=== PATIENT | female | born 1955 | race African-American/Black ===

== ENCOUNTER 2017-06-25 09:23 | Inpatient (IN) | payer MEDICARE, MEDICAID ==
[~2017-06-25 09:23] MED LIST: Propofol 200 MG/20 ML VIAL ONE
[2017-06-25 10:17] LABS: #Eosinphils 0.2 thou/uL (0.0-0.7); #Lymphocytes 1.3 thou/uL (1.20-3.40); #Monocytes 0.5 thou/uL (0.11-0.59); #Neutrophils 7.2 thou/uL (1.40-6.50); %Basophils 0.3 % (0.0-1.0); %Eosinophils 1.7 % (0.0-10.0); %Lymphocytes 14.4 % (21.0-51.0); %Monocytes 5.7 % (0.0-10.0); Hematocrit 38.4 % (36.0-47.0); Mean Platelet Volume 7.9 fL (7.4-10.4); Red Blood Cell (RBC) Count 4.81 mill/uL (4.20-5.40); White Blood Cell (WBC) Count 9.2 thou/uL (4.8-10.8)
--- NOTE | 2017-06-25 10:17 | RAD ---
CHEST 1 VIEW: HISTORY: Shortness of breath. COMPARISON: Chest 1 view 06/02/16. FINDINGS: Linear opacities are present at the right middle lobe and lingula. Heart size is enlarged. Mild pu lmonary venous congestion, worsened. No pneumothorax. Tracheostomy tube is present. IMPRESSION: 1. Linear opacities in lingula and right middle lobe may reflect atelectasis or infection. 2. Cardiomegaly with pulmonary venous congestion. 3. Likely small left effusion. 4. Followup recommended. POS: OFF
[2017-06-25 10:33] LABS: Lactic Acid - Sepsis 1.1 mmol/L (0.5-2.2)
[2017-06-25 10:49] LABS: ALT (SGPT) 11 U/L (8-55); AST (SGOT) 13 U/L (5-34); Alkaline Phosphatase 78 U/L (40-150); Anion Gap 12 mmol/L (10-20); BUN (Urea Nitrogen) 13 mg/dL (9.8-20.1); Bilirubin, Total 0.3 mg/dL (0.2-1.2); CK (CPK) 32 U/L (29-168); Calc. Creatinine Clearance 0 mL/min (70-130); Calcium 9.3 mg/dL (7.8-10.44); Carbon Dioxide 36 mmol/L (22-29); Chloride 97 mmol/L (98-107); Estimated GFR-MDRD 78; Protein, Total 7.4 g/dL (6.0-8.3); Troponin I 0.015 ng/mL (< 0.028)
[2017-06-25 11:43] LABS: Bilirubin Negative (Negative); Blood, Urine Negative (Negative); Glucose, Urine (Dipstick) Negative (Negative); Ketone, Urine Negative (Negative); Nitrite Negative (Negative); Protein, Urine (Dipstick) Negative (Neg-Trace); Urobilinogen 0.2 mg/dL (0.2-1.0)
[2017-06-25 11:45] LABS: Bacteria/HPF None Seen HPF (None Seen); RBC/HPF 0-3 HPF (0-3)
[2017-06-25 11:57] LABS: Oval Fat Bodies/HPF None Seen HPF (None Seen); Renal Epithelial None Seen HPF (0-3); Transitional Epithelial 0-3 HPF (0-3); Trichomonas/HPF None Seen HPF (None Seen)
[2017-06-25] MEDS ORDERED: Piperacillin/Tazobactam 4.5 GM VIAL ONE (12:00)
[2017-06-25] MEDS ORDERED: Ibuprofen 800 MG TAB ONE (12:00)
[2017-06-25] MEDS ORDERED: Sodium Chloride 0.9% 100 ML ONE (12:01)
--- NOTE | 2017-06-25 13:22 | HP ---
PRIMARY CARE PHYSICIAN: Dr. Jasmin Ivey. REASON FOR ADMISSION: Right lower lobe pneumonia. HISTORY OF PRESENT ILLNESS: A 61-year-old female, who has morbid obesity with obesity hypoventilati on syndrome and chronic respiratory failure, on home oxygen therapy. She also has a tracheostomy. This time, she came to emergency room for evaluation of hypoxia. Her oxygen saturation was trending 87%, and with little exertion, her oxygen saturation dropping to below 60. She was also having inc reased need of suction through the tracheostomy and she was feeling warm at home. She is not sure a bout fever. The patient was also having generalized body pain, and she was feeling more weak than u sual and that is why she decided to come to emergency room for evaluation. In the emergency room, c hest x-ray showed opacity in the lingula and right middle lobe. Her urinalysis was consistent with urinary tract infection. Culture obtained in the emergency room, and the patient was given empiric antibiotic therapy with vancomycin and Zosyn, and subsequently, she was admitted to medical floor fo r further treatment. Patient denies any chest pain or palpitations. She denies any constipation, diarrhea, melena, or he matochezia. She denies any real UTI symptoms. She denies any fall. PAST MEDICAL HISTORY: Morbid obesity; obesity hypoventilation syndrome; chronic respiratory failure , on home oxygen therapy; chronic obstructive pulmonary disease/asthma; gastroesophageal reflux dise ase; obstructive sleep apnea; tracheostomy status; chronic physical deconditioning. PAST PSYCHIATRIC HISTORY: Anxiety and depression. PAST SURGICAL HISTORY: Tracheostomy in 2015, bilateral tubal ligation, cholecystectomy, , herniorrhaphy, bilateral mastectomy, appendicectomy. ALLERGIES: Patient is allergic to INFLUENZA VIRUS VACCINE, LEVAQUIN, IODINE, SHELLFISH, NALBUPHINE, AND SULFA DRUGS. FAMILY HISTORY: Mother has history of hypertension. Father diagnosed with prostate cancer and he a lso had hypertension. One son has asthma. No family history of stroke. SOCIAL HISTORY: Patient lives at home. She has home health. No history of tobacco, alcohol, or il licit drug abuse. 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 She is with 2 children. REVIEW OF SYSTEMS: The following complete review of systems was negative, unless otherwise mentione d in the HPI or below: Constitutional: Weight loss or gain, ability to conduct usual activities. Skin: Rash, itching. Eyes: Double vision, pain. ENT/Mouth: Nose bleeding, neck stiffness, pain, tenderness. Cardiovascular: Palpitations, dyspnea on exertion, orthopnea. Respiratory: Shortnes s of breath, wheezing, cough, hemoptysis, fever or night sweats. Gastrointestinal: Poor appetite, abdominal pain, heartburn, nausea, vomiting, constipation, or diarrhea. Genitourinary: Urgency, fr equency, dysuria, nocturia. Musculoskeletal: Pain, swelling. Neurologic/Psychiatric: Anxiety, de pression. Allergy/Immunologic: Skin rash, bleeding tendency. Please see my HPI for pertinent posi tives and negatives. All other review of systems reviewed and negative except as mentioned in the H PI. EMERGENCY ROOM COURSE: Patient is given ibuprofen 800 mg, Lasix 40 mg, vancomycin 1 gram, and Zosyn 4.5 gram. CURRENT HOME MEDICATIONS: The patient does not have any medication with her at this point, and base d on previous discharge summary, the patient is on following medications: Xanax 0.5 mg p.o. b.i.d. p.r.n., Mucomyst inhalation t.i.d., albuterol nebulization q.8 hourly, Ventolin HFA 2 puffs q. 6 kayli rly p.r.n., aspirin 325 mg p.o. daily, Fioricet one tablet p.o. daily p.r.n., cetirizine 10 mg p.o. daily p.r.n., vitamin B12 1000 mcg p.o. daily, Colace one tablet twice daily, Cameron 1 tablet q.4 kayli rly p.r.n., DuoNeb q.6 hourly p.r.n., Zofran p.r.n., Protonix 40 mg p.o. daily, Coenzyme Q10 100 mg p.o. daily, Ambien 10 mg p.o. at bedtime p.r.n., Benadryl 25 mg p.o. at bedtime p.r.n. PHYSICAL EXAMINATION: VITAL SIGNS: On arrival, blood pressure 135/75, pulse 115, respiratory rate 32, temperature 98.8, s aturation 83% on 4 liters oxygen, weight 151.5 kilograms. GENERAL: Patient is currently alert and able to talk in full sentences, no obvious acute distress. HEENT: Head: Normocephalic, atraumatic. Eyes: Pupils round and reactive to light. Extraocular m uscle intact. ENT: Oropharynx within normal limits. Moist mucous membranes. No oral lesions. No pharyngeal erythema, no exudate. NECK: Tracheostomy tube in place, on trach collar. No JVD, no thyromegaly, no carotid bruit, no me ningeal signs of irritation. LUNGS: Right lower lobe rales noted and expiratory wheezing heard all over chest, predominantly on the right side. CARDIAC: S1, S2 regular without any significant murmur. ABDOMEN: Morbid obesity limiting examination. No organomegaly, no mass, no suprapubic tenderness. BACK EXAMINATION: Unremarkable, no CVA tenderness. EXTREMITIES: Upper extremity, passive movement of all joints are normal. Lower extremities, no malcolm ma, good peripheral pulsation. SKIN: The skin is dry and warm without any rash. PSYCHIATRIC: Normal affect. SIGNIFICANT LABS: EKG, based on my review, sinus tachycardia without any acute ischemic changes. C hest x-ray, based on my review, infiltration in the lingula and right middle lobe, pulmonary vascula r congestion, and small left pleural effusion. CBC: WBC 9.2, hemoglobin 11.0, MCV 79.9, platelet 3 68. BMP: Sodium 140, potassium 4.5, chloride 97, carbon dioxide 36, BUN 13, creatinine 0.89, gluco se 137, calcium 9.3. Lactic acid 1.1. LFT: AST 13, ALT 11, alkaline phosphatase 78, albumin 3.4, CK 32, CK-MB 1.5, troponin I 0.015. Urinalysis consistent with urinary tract infection. ASSESSMENT AND PLAN: 1. Acute on chronic hypoxic respiratory failure. This patient has underlying chronic respiratory f ailure, requiring oxygen through the tracheostomy collar. Currently, her oxygen is running lower th an baseline. This is because of patient's new lingular and right middle lobe pneumonia. At this po int, the patient will require admission. She will be treated with broad-spectrum antibiotic therapy . We will continue with oxygen therapy to keep saturation above 90%. 2. Community-acquired pneumonia of lingula as well as right middle lobe. Given her underlying hist ory of chronic lung disease and tracheostomy status plus recurrent hospitalization, we will treat wi th broad-spectrum antibiotic therapy with vancomycin and Zosyn. We will continue with DuoNeb therap y every 6 hourly on an as needed basis, Mucinex 600 mg twice daily. 3. Urinary tract infection. We will send urine culture and patient is already on broad-spectrum an tibiotic therapy with vancomycin and Zosyn and will follow up on culture result. 4. Chronic respiratory failure, requiring home oxygen therapy. 5. Morbid obesity with obesity hypoventilation syndrome and obstructive sleep apnea, status post tr acheostomy. 6. Anxiety with depression. We will continue Xanax 0.25 mg p.o. b.i.d., as needed basis. 7. Gastroesophageal reflux disease. We will continue Protonix 40 mg p.o. daily. 8. Chronic low back pain. The patient's pain will be controlled with 4-hour pain medication while in hospital. CODE STATUS: The patient is FULL CODE. Patient does not have any surrogate decision maker. Disposition plan based on clinical course. We are expecting patient's stay in hospital more than 2 midnights. Plan of care discussed with the patient in detail.
[2017-06-25] MEDS ORDERED: Loperamide HCl 2 MG CAP PO PRN (14:17)
[2017-06-25] MEDS ORDERED: Senokot 8.6 MG TAB PO PRN (14:17)
[2017-06-25] MEDS ORDERED: Zolpidem Tartrate 5 MG TAB PO PRN (14:17)
[2017-06-25] MEDS ORDERED: Mag-Al 1200 mg/1200 mg/30 ML UDCUP PO PRN (14:17)
[2017-06-25] MEDS ORDERED: Ondansetron HCl/PF 4 MG/2 ML Vial IVP PRN (14:17)
[2017-06-25] MEDS ORDERED: Eucerin (Mineral Oil/Petrolatum,White) 30 gm Jar TOP PRN (14:17)
[2017-06-25] MEDS ORDERED: Chloraseptic Spray 180 ml Bottle PO PRN (14:17)
[2017-06-25] MEDS ORDERED: Artificial Tears 18 DROP/0.9 ML EA EYE PRN (14:17)
[2017-06-25] MEDS ORDERED: HYDROcodone/Acetaminophen 5/325 mg Tablet PO PRN (14:17)
[2017-06-25] MEDS ORDERED: Ondansetron ODT 4 MG TAB PO PRN (14:17)
[2017-06-25] MEDS ORDERED: Diabetic Tussin 200 MG/10 ML UDCUP PO PRN (14:17)
[2017-06-25] MEDS ORDERED: Milk Of Magnesia 30 ML UDCUP PO PRN (14:17)
[2017-06-25] MEDS ORDERED: VANCOMYCIN IVPB PRN (14:17)
[2017-06-25] MEDS ORDERED: Sodium Chloride 0.65% Nasal 44 ML BOT EA NARE PRN (14:17)
[2017-06-25] MEDS ORDERED: Acetaminophen 325 MG TAB PO PRN (14:17)
[2017-06-25] MEDS ORDERED: Loratadine 10 MG TAB PO PRN (14:17)
[2017-06-25] MEDS: Acetylcysteine 20% 200 MG/ML 30 ML VIAL INH SCH ×2 (14:51→23:03)
[2017-06-25] MEDS ORDERED: ALPRAZolam 0.5 MG TAB PO SCH ×2 (15:45→21:00)
[2017-06-25] MEDS ORDERED: Vancomycin HCl 1 GM in Premix Bag 1 BAG IVPB SCH (17:00)
[2017-06-25] MEDS: Piperacillin/Tazobactam 4.5 GM in Sodium Chloride 0.9% 100 ML IVPB SCH ×2 (17:11→23:20)
[2017-06-25] MEDS: diphenhydrAMINE HCl 50 MG/ML 1 ML VIAL IVP PRN (21:19)
[2017-06-25 23:43] LABS: Oxyhemoglobin 75.3 % (94.0-97.0); Sodium 141 mmol/L (135-148)
[2017-06-25 23:46] LABS: Mode 40% T-COLLAR; Modified Allen's Test POSITIVE; Vent NO
[2017-06-26] MEDS ORDERED: Midazolam HCl 2 mg/2 ml Vial IVP SCH (00:15)
--- NOTE | 2017-06-26 00:56 | PDOC.PN ---
- Subjective Encounter Start Date: 06/26/17 Encounter Start Time: 00:00 ctsp due to hypoxia Pt was hypoxic on fi02 60%. Pt c/o dyspnea - Objective Resuscitation Status: Resuscitation Status FULL:Full Resuscitation Vital Signs & Weight: Vital Signs (12 hours) Temp Pulse Resp BP Pulse Ox 06/25/17 23:01 90 L 06/25/17 21:39 98.2 F 96 18 91 L 06/25/17 20:00 98.2 F 96 18 152/73 H 06/25/17 18:51 91 L 06/25/17 18:39 91 L 06/25/17 15:56 97.8 F 93 24 H 143/83 H 06/25/17 14:51 94 15 88 L 06/25/17 14:17 97.9 F 100 26 H 127/71 95 06/25/17 14:00 97.9 F 100 26 H 95 Weight Weight 316 lb 12.8 oz Result Diagrams: 06/25/17 10:04 06/25/17 10:02 Additional Labs: Accuchecks 06/25/17 06/25/17 19:26 15:54 POC Glucose 165 H 130 H Phys Exam - Physical Examination lethargic HEENT: moist MMs Neck: no JVD positive tracheostomy diminsihed at bases, no rhonchi, poor inspiratory effort, positive tachypne Cardiovascular: no significant murmur, no rub tachy, no wheezing, no rhonchi Gastrointestinal: soft, non-tender, no distention Musculoskeletal: no edema Neurological: non-focal Dx/Plan - Plan Pt is 61 yrs old female 1. Acute hypercapneic and hypoxic respiratory failure 2. GLORIA 3. Pneumonia 4. Hypotension Plan: 1. Reviewed ABG. D/W Pulm/CCM. called ER physician a spulmonary recommended. Pt Had ET tube placed by ED physician. Appreciate their input Further management per pulm/ccm 2. Monitor bp closely. Will give 1liter NS Bolus. 3. Continue iv antibiotics. case d/w pt & RN
[2017-06-26] MEDS: Sodium Chloride 0.9% 1,000 ML IV SCH ×2 (01:30→15:06)
[2017-06-26 04:57] LABS: #Eosinphils 0.3 thou/uL (0.0-0.7); #Lymphocytes 1.9 thou/uL (1.20-3.40); #Monocytes 0.7 thou/uL (0.11-0.59); %Basophils 0.3 % (0.0-1.0); %Eosinophils 3.5 % (0.0-10.0); %Lymphocytes 21.4 % (21.0-51.0); %Monocytes 7.7 % (0.0-10.0); Hematocrit 37.4 % (36.0-47.0); Mean Platelet Volume 8.3 fL (7.4-10.4); Red Blood Cell (RBC) Count 4.68 mill/uL (4.20-5.40)
[2017-06-26 04:58] LABS: ALT (SGPT) 12 U/L (8-55); AST (SGOT) 19 U/L (5-34); Alkaline Phosphatase 79 U/L (40-150); Anion Gap 12 mmol/L (10-20); BUN (Urea Nitrogen) 15 mg/dL (9.8-20.1); Bilirubin, Total 0.5 mg/dL (0.2-1.2); Calc. Creatinine Clearance 134 mL/min (70-130); Calcium 8.5 mg/dL (7.8-10.44); Carbon Dioxide 33 mmol/L (22-29); Chloride 98 mmol/L (98-107); Estimated GFR-MDRD 68; Globulin 3.7 g/dL (2.4-3.5); Protein, Total 6.7 g/dL (6.0-8.3)
[2017-06-26] MEDS: Piperacillin/Tazobactam 4.5 GM in Sodium Chloride 0.9% 100 ML IVPB SCH (06:07)
--- NOTE | 2017-06-26 08:26 | CON ---
DATE OF CONSULTATION: 06/26/2017 HISTORY OF PRESENT ILLNESS: Ms. Mayorga is a 61-year-old female. A code cheryl was called because of hypoxia this evening from what I have been told. Blood gas showed high pCO2 and low pH. Her cuffless tracheostomy tube has been changed out to a 7 endotracheal tube, and she is now mechanically ventilated. She is awake and instructed the nurses to call her sister before being transferred to the ICU. She was given sedation prior to transfer to the ICU by the ER physician. PAST MEDICAL HISTORY: 1. Remarkable for tracheostomy and obesity hypoventilation syndrome. She has never actually been seen in the office over here by my associate, he sees here in the hospital. 2. History of reflux disease. 3. History of basically being extremely inactive, essentially bedridden. 4. History of tubal ligation. 5. History of cholecystectomy. 6. History of . 7. History of mastectomy. 8. History of an appendectomy. FAMILY HISTORY: Negative for lung disease at an early age. PHYSICAL EXAMINATION: VITAL SIGNS: Blood pressure earlier was 152/73. She is afebrile, heart rate is 100 now. She is in sinus rhythm, oximetry is 100%. She is volume ventilated. She has equal breath sounds. HEART: Regular rhythm, distant S1 and S2. ABDOMEN: Massive. EXTREMITIES: Massive. Blood pressure cuff is on her left forearm, which is notoriously inaccurate, but we actually do not have a cuff large enough for her upper arm above her elbow from what I have been told. IMPRESSION: Hypoventilation. Chest radiograph does not clearly show an alveolar infiltrate suggestive of pneumonia. I suspect the linear atelectasis at the bases secondary to just atelectasis secondary to mucus plugging We will repeat a radiograph in the morning. She really does not need to be sedated. She does quite well based on my past experience with her in mechanical ventilation when she is awake. LIZETT
[2017-06-26 08:48] LABS: Oxyhemoglobin 95.8 % (94.0-97.0); Sodium 140 mmol/L (135-148)
--- NOTE | 2017-06-26 08:57 | RAD ---
CHEST 1 VIEW: HISTORY: Tracheostomy appliance. Followup. COMPARISON: Earlier exam on the same date. FINDINGS: Single portable supine [place] 0009 hours shows the tip of the endotracheal catheter to be just above the level of the sumanth. Pulmonary vascular congestion and other findings are otherwise stable. POS: [facility]
--- NOTE | 2017-06-26 08:59 | PDOC.FM ---
Addendum entered and electronically signed by Idris Bonilla MD 06/26/17 11:02 : Discussed Gentamicin dosing with pharmacy for resistant klebsiella UTI. Will not contact ID at this time. Will check gent level 6 to 14 hours after infusion started. Original Note: - Subjective Subjective: CC: burning eyes HPI: Patient care transferred to residents by [facility] since patient PCP is admitted to [facility]. Patient had CODE BLUE called overnight due to acute respiratory failure and severe hypoxia. Trach cuff replaced by ER doctor that responded and patient was moved to ICU. Admitted for CAP. Patient reports suprapubic pain and burning eyes. No other concerns. - Objective MAR Reviewed: Yes Vital Signs & Weight: Vital Signs (12 hours) Temp Pulse Resp BP Pulse Ox 06/26/17 06:50 91 93/51 L 06/26/17 06:48 83 16 99 06/26/17 06:00 16 06/26/17 04:00 97.9 F 16 06/26/17 03:05 82 18 100 06/26/17 01:00 97.7 F 06/26/17 00:33 86 06/26/17 00:30 97.9 F 86 16 100 06/25/17 23:01 90 L 06/25/17 21:39 98.2 F 96 18 91 L Weight Weight 143.698 kg Most Recent Monitor Data Heart Rate from ECG 89 NIBP 141/81 NIBP BP-Mean 100 Respiration from ECG 32 SpO2 100 I&O: 06/25/17 06/26/17 06/27/17 06:59 06:59 06:59 Intake Total 1354 Output Total 60 Balance 1294 Result Diagrams: 06/26/17 03:49 06/26/17 03:49 Radiology Reviewed by me: Yes (stable exam) <Idris Bonilla - Last Filed: 06/26/17 09:54> - Objective Vital Signs & Weight: Vital Signs (12 hours) Temp Pulse Resp BP Pulse Ox 06/27/17 12:16 92 24 H 96 06/27/17 12:00 97.7 F 06/27/17 10:00 100 06/27/17 08:31 86 120/52 L 06/27/17 08:28 82 16 100 06/27/17 08:00 98.9 F 83 20 100 06/27/17 06:00 12 06/27/17 04:00 98.6 F 12 06/27/17 03:04 91 06/27/17 03:02 88 16 100 06/27/17 02:00 12 Weight Admit Weight 316 lb Weight 316 lb 12.8 oz Most Recent Monitor Data Heart Rate from ECG 90 NIBP 127/57 NIBP BP-Mean 74 Respiration from ECG 18 SpO2 100 I&O: 06/26/17 06/27/17 06/28/17 06:59 06:59 06:59 Intake Total 1354 1843 Output Total 60 868 235 Balance 1294 975 -235 Result Diagrams: 06/27/17 03:40 06/27/17 03:40 <Jasmin Ivey - Last Filed: 06/27/17 13:56> Phys Exam - Physical Examination Constitutional: NAD HEENT: moist MMs, sclera anicteric Respiratory: no wheezing, clear to auscultation bilateral Cardiovascular: RRR, no significant murmur distant heart sounds Gastrointestinal: soft, positive bowel sounds suprapubic TTP Musculoskeletal: edema present (anasarca ) Neurological: non-focal, moves all 4 limbs <Idris Bonilla - Last Filed: 06/26/17 09:54> Dx/Plan (1) Acute and chronic respiratory failure Code(s): J96.20 - ACUTE AND CHR RESP FAILURE, UNSP W HYPOXIA OR HYPERCAPNIA Status: Acute Qualifiers: Respiratory failure complication: hypoxia and hypercapnia Qualified Code(s) : J96.21 - Acute and chronic respiratory failure with hypoxia; J96.22 - Acute and chronic respiratory failure with hypercapnia; J96.22 - Acute and chronic respiratory failure with hypercapnia; J96.22 - Acute and chronic respiratory failure with hypercapnia Plan: Exacerbation of Pickwickin syndrome vs. COPD exacerbation. - management per Pulmonlogy. - consider starting steroids - will d/c antibiotics. (2) UTI (urinary tract infection) Status: Acute Qualifiers: Urinary tract infection type: acute cystitis Plan: culture from 06/21 showed resistant Klebselia and E. coli. - given resistance pattern. will call ID for recommendations - repeat UA unremarkable (3) COPD (chronic obstructive pulmonary disease) Status: Chronic Qualifiers: COPD type: unspecified COPD Qualified Code(s): J44.9 - Chronic obstructive pulmonary disease, unspecified Plan: see plan for acute respiratory failure (4) Diabetes mellitus Code(s): E11.9 - TYPE 2 DIABETES MELLITUS WITHOUT COMPLICATIONS Status: Chronic Qualifiers: Diabetes mellitus type: type 2 Diabetes mellitus complication status: without complication Diabetes mellitus shelter insulin use: without truck terminal manager use Qualified Code(s): E11.9 - Type 2 diabetes mellitus without complications Plan: last A1c 5.0%. continue home medications. (5) Morbid obesity Code(s): E66.01 - MORBID (SEVERE) OBESITY DUE TO EXCESS CALORIES Status: Chronic Plan: ventilatory support. (6) Pickwickian syndrome Code(s): E66.2 - MORBID (SEVERE) OBESITY WITH ALVEOLAR HYPOVENTILATION Status : Chronic Plan: ventilator support. <Idris Bonilla - Last Filed: 06/26/17 09:54> Attending Addendum - Attending Addendum I personally evaluated the patient and discussed the management with Dr. Bonilla. I agree with the History, Examination, Assessment and Plan documented above with any addition or exceptions noted below. 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 Repeat urine culture while patient was still on antibiotics came back yesterday (06/25) and was positive for Klebsiella and E. coli and Klebsiella was resistant to all oral agents. She was called on 06/25 to go to hospital, but had already been admitted. She was SOB and feeling bad and admitted for COPD exacerbation. She got very SOB on the floor, so was intubated and put on ICU on 06/25. Her ABG now shows some overcorrection of FIO2, so adjusting vent. settings and starting Gentamicin for UTI. She also c/o eyes burning and has lots of tearing. Has h/o allergic rhinitis, so starting Pazeo eye drops. Exam is as noted by resident. Plan to wean off Vent. tomorrow and transfer to floor to complete antibotics for resistant UTI. <Jasmin Ivey - Last Filed: 06/27/17 13:56>
[2017-06-26] MEDS: Aspirin 325 MG TAB PO SCH (09:00)
[2017-06-26] MEDS: Saccharomyces boulardii 250 MG CAP PO SCH (09:00)
--- NOTE | 2017-06-26 09:00 | RAD ---
CHEST 1 VIEW: DATE: 06/26/17. TIME: 0006 hours. HISTORY: Intubated. Code blue. Followup. COMPARISON: 06/25/17. FINDINGS: Cardiac silhouette is magnified by projection. Pulmonary vasculature is more engorged. Mediastinum remains midline. Endotracheal catheter through the tracheostomy appliance is now in place with the tip overlying the right mainstem bronchus. Subsequently performed chest radiographs showed retraction of the tube to an appropriate level. POS: [facility]
[2017-06-26 09:38] LABS: Mechanical Tidal Volume 500 ml; Modified Allen's Test NOT DONE; Pressure Support 10 cmH2O; Vent YES
[2017-06-26 09:39] LABS: Mode SIMV/PSV
[2017-06-26] MEDS ORDERED: Gentamicin 80 MG/2 ML VIAL IVPB SCH (11:00)
[2017-06-26] MEDS: Enoxaparin Sodium 40 MG/0.4 ML SYRINGE SC SCH (13:03)
--- NOTE | 2017-06-26 17:01 | PRG ---
DATE OF SERVICE: 06/26/2017 SUBJECTIVE: Ms. Mayorga is awake, alert, mouthing words, communicating easily. She is grateful for the care given to this point said thank you multiple times. OBJECTIVE: LUNGS: Clear anteriorly. HEART: Regular rhythm. IMPRESSION AND PLAN: 1. Retained secretions. 2. Life threatening obesity. She says she is on 1200 calorie diet. She needs probably be on a 100 0 or less to lose weight. 3. Chronic indwelling extra long Shiley, now 7-0 endotracheal tube in that has been cut off since w e do not anticipate a long-term requirement for mechanical ventilation, we will leave this and then pull this tomorrow and place a Shiley XL back in place. Her CO2 retention is dramatically improved, this morning her pH of 7.54, CO2 of 38, PO2 of 62 on 30% . Her electrolytes today are normal.
[2017-06-26] MEDS: Olopatadine HCl 100 DROP/5 ML BOT EA EYE SCH (21:03)
[2017-06-27] MEDS: diphenhydrAMINE HCl 50 MG/ML 1 ML VIAL IVP PRN ×4 (00:10→14:23)
[2017-06-27] MEDS: Sodium Chloride 0.9% 1,000 ML IV SCH (04:07)
[2017-06-27 04:32] LABS: Anion Gap 11 mmol/L (10-20); BUN (Urea Nitrogen) 17 mg/dL (9.8-20.1); Calc. Creatinine Clearance 138 mL/min (70-130); Calcium 8.3 mg/dL (7.8-10.44); Carbon Dioxide 33 mmol/L (22-29); Chloride 102 mmol/L (98-107); Estimated GFR-MDRD 70
[2017-06-27 04:41] LABS: Hematocrit 31.8 % (36.0-47.0); Mean Platelet Volume 8.1 fL (7.4-10.4); Neutrophil 53 % (42-75); Red Blood Cell (RBC) Count 4.06 mill/uL (4.20-5.40); White Blood Cell (WBC) Count 5.6 thou/uL (4.8-10.8)
--- NOTE | 2017-06-27 07:56 | PDOC.FM ---
- Subjective Subjective: CC: Feeling better HPI: Patient states she is concerned about her recurrent and increasingly resistant UTIs. States her breathing has improved. Discussed bariatric surgery with patient who stated a doctor in [place] stated she would not be a safe surgical candidate. - Objective MAR Reviewed: Yes Vital Signs & Weight: Vital Signs (12 hours) Temp Pulse Resp Pulse Ox 06/27/17 06:00 12 06/27/17 04:00 98.6 F 12 06/27/17 03:04 91 06/27/17 03:02 88 16 100 06/27/17 02:00 12 06/27/17 00:00 98.7 F 16 06/26/17 22:26 80 18 100 06/26/17 22:00 11 L 06/26/17 20:00 98.5 F 16 Weight Admit Weight 143.335 kg Weight 143.698 kg Most Recent Monitor Data Heart Rate from ECG 80 NIBP 95/44 NIBP BP-Mean 63 Respiration from ECG 11 SpO2 100 I&O: 06/26/17 06/27/17 06/28/17 06:59 06:59 06:59 Intake Total 1354 1843 Output Total 60 868 Balance 1294 975 Result Diagrams: 06/27/17 03:40 06/27/17 03:40 <Idris Bonilla W - Last Filed: 06/27/17 07:55> - Objective Vital Signs & Weight: Vital Signs (12 hours) Temp Pulse Resp BP Pulse Ox 06/27/17 12:16 92 24 H 96 06/27/17 12:00 97.7 F 06/27/17 10:00 100 06/27/17 08:31 86 120/52 L 06/27/17 08:28 82 16 100 06/27/17 08:00 98.9 F 83 20 100 06/27/17 06:00 12 06/27/17 04:00 98.6 F 12 06/27/17 03:04 91 06/27/17 03:02 88 16 100 06/27/17 02:00 12 Weight Admit Weight 316 lb Weight 316 lb 12.8 oz Most Recent Monitor Data Heart Rate from ECG 90 NIBP 127/57 NIBP BP-Mean 74 Respiration from ECG 18 SpO2 100 I&O: 06/26/17 06/27/17 06/28/17 06:59 06:59 06:59 Intake Total 1354 1843 Output Total 60 868 235 Balance 1294 975 -235 Result Diagrams: 06/27/17 03:40 06/27/17 03:40 <Jasmin Ivey - Last Filed: 06/27/17 13:59> Phys Exam - Physical Examination Constitutional: NAD HEENT: moist MMs, sclera anicteric Neck: no nodes, supple Respiratory: no wheezing, clear to auscultation bilateral Cardiovascular: RRR, no significant murmur Gastrointestinal: soft, non-tender Neurological: non-focal, moves all 4 limbs Psychiatric: normal affect, A&O x 3 <ChadIdris W - Last Filed: 06/27/17 07:55> Dx/Plan (1) Acute and chronic respiratory failure Code(s): J96.20 - ACUTE AND CHR RESP FAILURE, UNSP W HYPOXIA OR HYPERCAPNIA Status: Acute Qualifiers: Respiratory failure complication: hypoxia and hypercapnia Qualified Code(s) : J96.21 - Acute and chronic respiratory failure with hypoxia; J96.22 - Acute and chronic respiratory failure with hypercapnia; J96.22 - Acute and chronic respiratory failure with hypercapnia; J96.22 - Acute and chronic respiratory failure with hypercapnia Plan: Exacerbation of Pickwickin syndrome vs. COPD exacerbation. - management per Pulmonlogy. state they plan to replace trach today. - consider starting steroids (2) UTI (urinary tract infection) Status: Acute Qualifiers: Urinary tract infection type: acute cystitis Plan: culture from 06/21 showed resistant Klebselia and E. coli. - Gent day 2 - repeat UA unremarkable (3) COPD (chronic obstructive pulmonary disease) Status: Chronic Qualifiers: COPD type: unspecified COPD Qualified Code(s): J44.9 - Chronic obstructive pulmonary disease, unspecified Plan: see plan for acute respiratory failure (4) Diabetes mellitus Code(s): E11.9 - TYPE 2 DIABETES MELLITUS WITHOUT COMPLICATIONS Status: Chronic Qualifiers: Diabetes mellitus type: type 2 Diabetes mellitus complication status: without complication Diabetes mellitus longterm insulin use: without longterm use Qualified Code(s): E11.9 - Type 2 diabetes mellitus without complications Plan: last A1c 5.0%. continue home medications. (5) Morbid obesity Code(s): E66.01 - MORBID (SEVERE) OBESITY DUE TO EXCESS CALORIES Status: Chronic Plan: ventilatory support. (6) Pickwickian syndrome Code(s): E66.2 - MORBID (SEVERE) OBESITY WITH ALVEOLAR HYPOVENTILATION Status : Chronic Plan: ventilator support. <Idris Bonilla - Last Filed: 06/27/17 07:55> Attending Addendum - Attending Addendum I personally evaluated the patient and discussed the management with Dr. Bonilla. I agree with the History, Examination, Assessment and Plan documented above with any addition or exceptions noted below. Patient doing much better today and will be extubated. Lungs are clear. She says eyes feel much better with Pazeo. Gentamicin level came back and patient will need Gentamicin q 48 hours for UTI. Will look at transferring to IM, as she still needs trach. care. <Jasmin Ivey - Last Filed: 06/27/17 13:59>
[2017-06-27 08:39] LABS: Oxyhemoglobin 94.2 % (94.0-97.0); Sodium 142 mmol/L (135-148)
[2017-06-27 08:43] LABS: Mechanical Tidal Volume 500 ml; Modified Allen's Test NOT DONE; Vent YES
[2017-06-27 08:44] LABS: Mode SIMV/PSV; Pressure Support 12 cmH2O
[2017-06-27] MEDS: Enoxaparin Sodium 40 MG/0.4 ML SYRINGE SC SCH (08:44)
[2017-06-27] MEDS: Aspirin 325 MG TAB PO SCH (08:45)
[2017-06-27] MEDS: Saccharomyces boulardii 250 MG CAP PO SCH (08:45)
[2017-06-27] MEDS: Olopatadine HCl 100 DROP/5 ML BOT EA EYE SCH ×2 (08:46→20:50)
--- NOTE | 2017-06-27 09:23 | RAD ---
CHEST 1 VIEW: HISTORY: Dyspnea. Followup. COMPARISON: 06/26/17. FINDINGS: Cardiac silhouette is magnified and partially obscured by worsening patchy bibasilar infiltrates. P ulmonary vasculature is more engorged. Mediastinum is midline. Tracheostomy catheter is in good ra diographic position. law enforcement director leads overlie the chest. IMPRESSION: Worsening pulmonary edema. POS: [facility]
[2017-06-27] MEDS ORDERED: Sodium Chloride 0.9% 1,000 ML IV SCH (13:47)
[2017-06-27] MEDS ORDERED: Furosemide 40 MG/4 ML VIAL SLOW IVP SCH (14:00)
[2017-06-27] MEDS ORDERED: Lorazepam 2 MG/ML VIAL SLOW IVP PRN (20:00)
--- NOTE | 2017-06-27 21:07 | PRG ---
DATE OF SERVICE: 06/27/2017 SUBJECTIVE: Ms. Mayorga had a good night. She is on trach collar this morning, in no distress. She had her endotracheal tube removed, and her Shiley XL which she carries as a backup from her tiffani tcase was used to replace her tracheostomy tube. OBJECTIVE: VITAL SIGNS: Heart rate is 92, blood pressure is 127/57, oximetry is 96%. GENERAL APPEARANCE: She is in no distress. LUNGS: Clear. HEART: Regular rhythm. ABDOMEN: Soft. IMPRESSION AND PLAN: Status post respiratory failure, most likely secondary to mucous plugging seco ndary to failure to use humidified tracheostomy collar at home. We discussed weight loss again and calorie counting. She will remain in the critical care unit for one more night. Her goal O2 sat ne eds to be 86% to 92%.
[2017-06-28] MEDS: diphenhydrAMINE HCl 50 MG/ML 1 ML VIAL IVP PRN ×3 (00:31→20:02)
[2017-06-28 05:16] LABS: Hematocrit 34.7 % (36.0-47.0); Mean Platelet Volume 8.9 fL (7.4-10.4); Red Blood Cell (RBC) Count 4.44 mill/uL (4.20-5.40); White Blood Cell (WBC) Count 6.7 thou/uL (4.8-10.8)
[2017-06-28 05:18] LABS: Anion Gap 15 mmol/L (10-20); BUN (Urea Nitrogen) 12 mg/dL (9.8-20.1); Calc. Creatinine Clearance 144 mL/min (70-130); Calcium 8.8 mg/dL (7.8-10.44); Carbon Dioxide 32 mmol/L (22-29); Chloride 96 mmol/L (98-107); Estimated GFR-MDRD 73
[2017-06-28 05:27] LABS: Band 1 % (5-11)
[2017-06-28 05:28] LABS: Hypochromia SLIGHT = 6-15 cells (100X) (0-5/hpf); Polychromasia SLIGHT = 2-3 cells (100X) (0-2/hpf); Schistocytes SLIGHT = 2-5 cells (100X) (0-1/hpf)
[2017-06-28 05:36] LABS: Neutrophil 59 % (42-75)
--- NOTE | 2017-06-28 08:12 | PRG ---
DATE OF SERVICE: 06/28/2017 SUBJECTIVE: The patient seems to be doing okay this morning. Did not require mechanical ventilatio n last night. PHYSICAL EXAMINATION: VITAL SIGNS: Temperature 98.4, pulse 94, blood pressure 106/59, total intake for 24 hours 1513, out put 4627. HEENT: Unremarkable. Trach clean. LUNGS: Clear. CARDIAC: S1 and S2 regular. ABDOMEN: Obese. LABORATORY DATA: Sodium 139, potassium 4, chloride 96, CO2 30, BUN 12, creatinine 0.9, and glucose 73. White blood cell count 6.7, hematocrit 34.7, and platelet count 312. ASSESSMENT: 1. Status post acute respiratory failure thought secondary to mucus plugging. 2. Urinary tract infection, highly resistant. PLAN: 1. Can transfer out to telemetry. 2. Continue low flow oxygen. 3. Continue antibiotics. 4. Hopefully home soon.
[2017-06-28] MEDS ORDERED: diphenhydrAMINE HCl 25 MG CAP PO PRN (08:47)
[2017-06-28] MEDS ORDERED: Lorazepam 0.5 MG TAB PO SCH (09:00)
--- NOTE | 2017-06-28 09:01 | RAD ---
AP VIEW OF THE CHEST: INDICATION: Daily CCU examination. COMPARISON: Prior study dated 06/27/17. FINDINGS: There has been some improvement in aeration involving the right mid lung. Bilateral pleural effusio ns and bibasilar airspace opacities remain. Tracheostomy tube is similar. Cardiomegaly with pulmon freda vascular congestion is similar. IMPRESSION: 1. Improved aeration of the right mid lung. 2. Persistent cardiomegaly and pulmonary vascular congestion with small bilateral pleural effusions . POS: [facility]
[2017-06-28] MEDS: Saccharomyces boulardii 250 MG CAP PO SCH (09:18)
[2017-06-28] MEDS: Aspirin 325 MG TAB PO SCH (09:18)
[2017-06-28] MEDS: Enoxaparin Sodium 40 MG/0.4 ML SYRINGE SC SCH (09:18)
[2017-06-28] MEDS: Olopatadine HCl 100 DROP/5 ML BOT EA EYE SCH ×2 (10:08→21:38)
--- NOTE | 2017-06-28 10:14 | PDOC.FM ---
- Subjective Subjective: Pt w/ anxiety overnight improved w/ PRN dose of ativan. endorses improved breathing this AM. pt states on home bezos BID and not getting them here making her anxiety worsen. Still endorsing cough and sputum production this AM. Denies fevers. Otherwise DELORIS overnight, VSS - Objective MAR Reviewed: Yes Vital Signs & Weight: Vital Signs (12 hours) Temp Pulse Resp Pulse Ox 06/28/17 06:20 91 24 H 99 06/28/17 04:00 98.4 F 06/28/17 03:13 99 06/28/17 00:00 98.5 F 06/27/17 22:22 106 H 23 H 94 L Weight Admit Weight 143.335 kg Weight 143.698 kg Most Recent Monitor Data Heart Rate from ECG 94 NIBP 106/59 NIBP BP-Mean 77 Respiration from ECG 28 SpO2 100 I&O: 06/27/17 06/28/17 06/29/17 06:59 06:59 06:59 Intake Total 1843 1513 Output Total 868 4690 Balance 975 -5814 Result Diagrams: 06/28/17 03:52 06/28/17 03:52 <Bruce Blanchard - Last Filed: 06/28/17 10:13> - Objective Vital Signs & Weight: Vital Signs (12 hours) Temp Pulse Resp Pulse Ox 06/28/17 10:15 98 26 H 98 06/28/17 08:00 98.6 F 06/28/17 06:20 91 24 H 99 06/28/17 04:00 98.4 F 06/28/17 03:13 99 06/28/17 00:00 98.5 F Weight Admit Weight 143.335 kg Weight 143.698 kg Most Recent Monitor Data Heart Rate from ECG 96 NIBP 108/55 NIBP BP-Mean 74 Respiration from ECG 27 SpO2 98 I&O: 06/27/17 06/28/17 06/29/17 06:59 06:59 06:59 Intake Total 1843 1513 180 Output Total 868 4627 140 Balance 975 -3616 40 Result Diagrams: 06/28/17 03:52 06/28/17 03:52 <Kendra Nicholson - Last Filed: 06/28/17 10:49> Phys Exam - Physical Examination Constitutional: NAD trach in place on trach collar Respiratory: no wheezing, clear to auscultation bilateral Cardiovascular: RRR, no significant murmur Gastrointestinal: soft, positive bowel sounds Musculoskeletal: pulses present Neurological: moves all 4 limbs <Bruce Blanchard - Last Filed: 06/28/17 10:13> Dx/Plan (1) Acute on chronic respiratory failure with hypoxia and hypercapnia Code(s): J96.21 - ACUTE AND CHRONIC RESPIRATORY FAILURE WITH HYPOXIA; J96.22 - ACUTE AND CHRONIC RESPIRATORY FAILURE WITH HYPERCAPNIA Status: Acute Plan: CXR stable this AM and satting well on trach collar After speaking with pulm, feel that desaturations likely 2/2 mucus plugging and not PNA w/o fever or leukocytosis Pt w/o humidified trach collar at home Will consult CM for funding for this to hopefully help prevent future episodes Will continue on w/ nebs and supplemental O2 (2) UTI (urinary tract infection) Status: Acute Qualifiers: Urinary tract infection type: acute cystitis Plan: Pt w/ dirty U/A and Cx growing resistant klebsiella in the outpatient setting on 06/21 Repeat U/A w/ squams and UCx NGTD at 48 hours. 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 current regimen Diabetic diet (5) Morbid obesity Code(s): E66.01 - MORBID (SEVERE) OBESITY DUE TO EXCESS CALORIES Status: Chronic Plan: Cont. on w/ caloric deficit to promote weight loss Pt not a surgical candidate for weight loss surgery Pt w/ minimal reserve w/ pickwickian and COPD w/ small insults pushing her into respiratory distress Will continue to encourage weight loss to help improve pt's overall respiratory status <Bruce Blanchard - Last Filed: 06/28/17 10:13> Attending Addendum - Attending Addendum I personally evaluated the patient and discussed the management with Dr. Blanchard I agree with the History, Examination, Assessment and Plan documented above with any addition or exceptions noted below- Patient awake/alert. Feeling anxious. Afebrile VSS A/P: 1) Obesity hypoventilation syndrome with trach- continue current care; cont 2) UTI- urine culture negative; d/c abx today, 3) Anxiety- restart home meds, 4) DM- stable. <Kendra Nicholson - Last Filed: 06/28/17 10:49>
[2017-06-28] MEDS ORDERED: ADMIXTURE FEE IVPB SCH (15:00)
[2017-06-28] MEDS ORDERED: GENTAMICIN SULFATE IVPB SCH (15:00)
[2017-06-28] MEDS ORDERED: SODIUM CHLORIDE IVPB SCH (15:00)
[2017-06-28] MEDS: ALPRAZolam 0.5 MG TAB PO PRN (17:50)
[2017-06-29 05:52] LABS: Hematocrit 38.8 % (36.0-47.0); Mean Platelet Volume 8.3 fL (7.4-10.4); Red Blood Cell (RBC) Count 4.96 mill/uL (4.20-5.40); White Blood Cell (WBC) Count 6.4 thou/uL (4.8-10.8)
[2017-06-29 06:15] LABS: Anion Gap 13 mmol/L (10-20); BUN (Urea Nitrogen) 10 mg/dL (9.8-20.1); Calc. Creatinine Clearance 166 mL/min (70-130); Carbon Dioxide 34 mmol/L (22-29); Chloride 95 mmol/L (98-107); Estimated GFR-MDRD 86
[2017-06-29] MEDS: diphenhydrAMINE HCl 50 MG/ML 1 ML VIAL IVP PRN ×2 (06:15→22:54)
[2017-06-29 06:28] LABS: Band 3 % (5-11); Neutrophil 58 % (42-75)
--- NOTE | 2017-06-29 08:25 | PDOC.FM ---
- Subjective Subjective: DELORIS overnight, VSS on home supplemental O2 trach collar. Pt states that she feels something is wrong and does not this this is mucus plugging because she had that before in the hospital. She describes it as it feels like something is blocking off and this is holding her back. No other complaints. - Objective MAR Reviewed: Yes Vital Signs & Weight: Vital Signs (12 hours) Temp Pulse Resp BP Pulse Ox 06/29/17 07:09 95 24 H 90 L 06/29/17 05:01 93 22 H 92 L 06/29/17 04:00 98.7 F 89 20 120/73 92 L 06/29/17 02:03 91 L 06/29/17 01:54 99 26 H 91 L 06/29/17 00:30 98.4 F 99 24 H 127/58 L 92 L 06/28/17 21:47 101 H 26 H 90 L Weight Admit Weight 143.335 kg Weight 147.191 kg Most Recent Monitor Data Heart Rate from ECG 97 NIBP 108/55 NIBP BP-Mean 74 Respiration from ECG 25 SpO2 93 I&O: 06/28/17 06/29/17 06/30/17 06:59 06:59 06:59 Intake Total 1513 715 Output Total 4627 795 Balance -3114 -80 Result Diagrams: 06/29/17 05:38 06/29/17 05:38 <Bruce Blanchard - Last Filed: 06/29/17 08:23> - Objective Vital Signs & Weight: Vital Signs (12 hours) Temp Pulse Resp BP Pulse Ox 06/29/17 10:24 108 H 24 H 90 L 06/29/17 08:00 99.9 F H 98 20 124/61 88 L 06/29/17 07:09 95 24 H 90 L 06/29/17 05:01 93 22 H 92 L 06/29/17 04:00 98.7 F 89 20 120/73 92 L 06/29/17 02:03 91 L 06/29/17 01:54 99 26 H 91 L 06/29/17 00:30 98.4 F 99 24 H 127/58 L 92 L Weight Admit Weight 143.335 kg Weight 147.191 kg Most Recent Monitor Data Heart Rate from ECG 97 NIBP 108/55 NIBP BP-Mean 74 Respiration from ECG 25 SpO2 93 I&O: 06/28/17 06/29/17 06/30/17 06:59 06:59 06:59 Intake Total 1513 715 Output Total 4681 795 Balance -3114 -80 Result Diagrams: 06/29/17 05:38 06/29/17 05:38 <Kendra Nicholson - Last Filed: 06/29/17 11:22> Phys Exam - Physical Examination Constitutional: NAD HEENT: PERRLA, moist MMs trach collar in place Respiratory: no wheezing, clear to auscultation bilateral Cardiovascular: RRR, no significant murmur Gastrointestinal: soft, positive bowel sounds Musculoskeletal: pulses present Neurological: moves all 4 limbs Psychiatric: A&O x 3 Deviation from normal: anxious Skin: cap refill <2 seconds <Bruce Blanchard - Last Filed: 06/29/17 08:23> Dx/Plan (1) Acute on chronic respiratory failure with hypoxia and hypercapnia Code(s): J96.21 - ACUTE AND CHRONIC RESPIRATORY FAILURE WITH HYPOXIA; J96.22 - ACUTE AND CHRONIC RESPIRATORY FAILURE WITH HYPERCAPNIA Status: Acute Plan: Satting well on trach collar in no resp distress After speaking with pulm, feel that desaturations likely 2/2 mucus plugging and not PNA w/o fever or leukocytosis Pt w/o humidified trach collar at home w/ nebulizers HH in place at home w/ family member who helps care for her CM contacted [facility] yesterday and they will send someone to home to check her O2 equipment to confirm proper functionality Will speak w/ Pulm again today and explore possible SNF placement (2) Anxiety Code(s): F41.9 - ANXIETY DISORDER, UNSPECIFIED Status: Chronic Plan: Will restart pt's home anxiety medication (3) Diabetes mellitus Code(s): E11.9 - TYPE 2 DIABETES MELLITUS WITHOUT COMPLICATIONS Status: Chronic Qualifiers: Diabetes mellitus type: type 2 Diabetes mellitus complication status: without complication 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 current regimen Diabetic diet (4) Morbid obesity Code(s): E66.01 - MORBID (SEVERE) OBESITY DUE TO EXCESS CALORIES Status: Chronic Plan: Cont. on w/ caloric deficit to promote weight loss Pt not a surgical candidate for weight loss surgery Pt w/ minimal reserve w/ pickwickian and COPD w/ small insults pushing her into respiratory distress Will continue to encourage weight loss to help improve pt's overall respiratory status <Bruce Blanchard - Last Filed: 06/29/17 08:23> Attending Addendum - Attending Addendum I personally evaluated the patient and discussed the management with Dr. Blanchard I agree with the History, Examination, Assessment and Plan documented above with any addition or exceptions noted below- Patient upset; feels more SOB/ chest tightness. States that she feels that something is wrong. Afebrile VSS A/P : 1) Obesity-hypoventilation syndrome- s/p trach- continue current care. 2) Severe anxiety- restarted on home dose of alprazolam yesterday. Consider addition of buspar or SSRI. 3) DM- stable. <Kendra Nicholson - Last Filed: 06/29/17 11:22>
--- NOTE | 2017-06-29 08:36 | PRG ---
DATE OF SERVICE: 06/29/2017 SUBJECTIVE: The patient is doing relatively well except for some atypical chest pain. PHYSICAL EXAMINATION: VITAL SIGNS: Temperature is 98.4, pulse 95, respiratory rate 24, O2 sat 90% on 8 liters, blood pres sure 127/58. HEENT: Unremarkable. NECK: No JVD. CHEST: Fairly clear. CARDIAC: S1 and S2 regular. ABDOMEN: Soft. EXTREMITIES: No edema. LABORATORY DATA: White blood cell count 6.4, hematocrit 30.8, platelet count 275. Sodium 138, pota ssium 3.7, chloride 95, CO2 34, BUN 10, creatinine 0.8, glucose 77. ASSESSMENT: 1. Atypical chest pain. 2. Morbid obesity. 3. History of asthma. 4. Chronic respiratory failure, requiring tracheostomy placement. 5. Severe anxiety. RECOMMENDATION: 1. Going to order another trach for the patient as she used her home trach for placement here. 2. Continue anxiety management. 3. Hopefully ambulate at home soon.
[2017-06-29] MEDS: Saccharomyces boulardii 250 MG CAP PO SCH (09:10)
[2017-06-29] MEDS: ALPRAZolam 0.5 MG TAB PO PRN (09:10)
[2017-06-29] MEDS: Aspirin 325 MG TAB PO SCH (09:11)
[2017-06-29] MEDS: Enoxaparin Sodium 40 MG/0.4 ML SYRINGE SC SCH (09:11)
[2017-06-29] MEDS: Olopatadine HCl 100 DROP/5 ML BOT EA EYE SCH ×2 (09:12→20:15)
[2017-06-29] MEDS ORDERED: Nystatin Powder 15 GM BOT TOP PRN (10:00)
--- NOTE | 2017-06-29 16:53 | PRG ---
DATE OF SERVICE: 06/29/2017 Thirty minutes critical care time. SUBJECTIVE: The patient was transferred to the intermediate care unit early this afternoon without my knowledge. I was informed by the nurse that the patient was complaining of respiratory discomfor t. On my arrival, the patient's O2 sats were in the low 80s. Her breath sounds were actually clear and she was begging for steroids. I told her that I thought we needed to replace her trach and put her on mechanical ventilation tempo rarily until we can sort things out. She initially protested, but then relented and allowed me to r eplace her trach with a Bivona cuffed 6.0 tracheostomy tube. She will be placed on mechanical venti lation. Steroids will be started. She will be transferred to the ICU.
[2017-06-29] MEDS: Lorazepam 2 MG/ML VIAL SLOW IVP PRN (17:18)
--- NOTE | 2017-06-29 19:22 | PDOC.EVN ---
Event Note - Event Note Event Note: Attending Note I was informed this evening by Dr Blanchard that zena trevizo had been transferred to IMCU form the [facility] at nursing request for patietn to nursing ratio. At that time, she was without complaint. While in the IMCU she developed shortness of breath adn Dr Gibson [facility] See his note for details. At this time she is stable, content, alert, and mouthing words well, and asking for IV anxiety meds to help her sleep. She has received IV Ativan.
[2017-06-29] MEDS: busPIRone HCl 5 MG TAB PO SCH (20:02)
[2017-06-30] MEDS: Lorazepam 2 MG/ML VIAL SLOW IVP PRN ×5 (00:55→23:03)
[2017-06-30 05:10] LABS: Anion Gap 20 mmol/L (10-20); BUN (Urea Nitrogen) 14 mg/dL (9.8-20.1); Calc. Creatinine Clearance 152 mL/min (70-130); Calcium 9.4 mg/dL (7.8-10.44); Carbon Dioxide 26 mmol/L (22-29); Chloride 95 mmol/L (98-107); Estimated GFR-MDRD 76
[2017-06-30 05:31] LABS: Anisocytosis MODERATE=16-30 cells (100X) (0-5/hpf); Band 2 % (5-11); Mean Platelet Volume 9.6 fL (7.4-10.4); Neutrophil 82 % (42-75); Ovalocytes SLIGHT = 2-5 cells (100X) (0-1/hpf); Tear Drops SLIGHT = 2-5 cells (100X) (0-1/hpf); White Blood Cell (WBC) Count 5.2 thou/uL (4.8-10.8)
[2017-06-30 05:56] LABS: Anion Gap 18 mmol/L (10-20); BUN (Urea Nitrogen) 14 mg/dL (9.8-20.1); Calc. Creatinine Clearance 156 mL/min (70-130); Calcium 9.2 mg/dL (7.8-10.44); Carbon Dioxide 30 mmol/L (22-29); Chloride 94 mmol/L (98-107); Estimated GFR-MDRD 78
[2017-06-30 05:58] LABS: Anisocytosis SLIGHT = 6-15 cells (100X) (0-5/hpf); Band 4 % (5-11); Hematocrit 37.6 % (36.0-47.0); Hypochromia SLIGHT = 6-15 cells (100X) (0-5/hpf); Mean Platelet Volume 8.7 fL (7.4-10.4); Metamyelocyte 1 % (0-0); Neutrophil 76 % (42-75); Reactive Lymphocytes 1 % (0-10); Red Blood Cell (RBC) Count 4.87 mill/uL (4.20-5.40); White Blood Cell (WBC) Count 4.2 thou/uL (4.8-10.8)
[2017-06-30] MEDS ORDERED: Furosemide 40 MG/4 ML VIAL SLOW IVP SCH (07:00)
--- NOTE | 2017-06-30 07:13 | PRG ---
DATE OF SERVICE: 06/30/2017 Ms. Mayorga was brought to the CCU last night for the purpose mechanical ventilation given her pe rsistent complaints of chest tightness which was refractory to medication. Apparently she feels bet ter this morning. She was actually deeply asleep and I did not try to awaken her. PHYSICAL EXAMINATION: VITAL SIGNS: On exam her temperature is 98.5, pulse 80, blood pressure 120/62, 24-hour intake was n ot accurately measured. HEENT: Unremarkable. NECK: Trach in good position. LUNGS: Clear anteriorly. CARDIOVASCULAR: S1, S2 regular. ABDOMEN: Soft, obese, nontender. EXTREMITIES: Trace edema throughout. LABORATORY DATA: White blood cell count 4.2, hemoglobin 10.9, hematocrit 37.6, platelet count 313. Sodium 137, potassium 4.7, chloride 94, CO2 30, BUN 14, creatinine 0.8, glucose 137. ASSESSMENT: 1. Chronic respiratory failure - requiring mechanical ventilation. 2. Morbid obesity. 3. Underlying obstructive sleep apnea. 4. Probably some type of borderline personality disorder. 5. Severe anxiety. PLAN: 1. Hopefully she can be weaned off mechanical ventilation today and placed back on trach collar. 2. Continue IV steroids. 3. One dose of diuretics. This encompassed 30 minutes critical care time.
[2017-06-30] MEDS: Enoxaparin Sodium 40 MG/0.4 ML SYRINGE SC SCH (08:28)
[2017-06-30] MEDS: diphenhydrAMINE HCl 50 MG/ML 1 ML VIAL IVP PRN ×4 (08:40→23:39)
--- NOTE | 2017-06-30 09:08 | PDOC.FM ---
- Subjective Subjective: DELORIS overnight, doing well on spontaneous breathing w/ mechanical vent via trach this AM. Still endorsing anxiety and states she feels like she needs to get suctioned. Afebrile, VSS. - Objective MAR Reviewed: Yes Vital Signs & Weight: Vital Signs (12 hours) Temp Pulse Resp BP Pulse Ox 06/30/17 07:06 98.5 F 78 20 94 L 06/30/17 06:24 78 120/62 06/30/17 06:22 76 20 97 06/30/17 06:00 12 06/30/17 04:00 14 06/30/17 03:00 98.5 F 06/30/17 02:56 72 12 98 06/30/17 02:00 13 06/30/17 00:00 12 06/29/17 23:00 98.4 F 06/29/17 22:13 85 12 96 06/29/17 22:00 15 Weight Admit Weight 143.335 kg Weight 146.6 kg Most Recent Monitor Data Heart Rate from ECG 86 NIBP 112/60 NIBP BP-Mean 81 Respiration from ECG 0 SpO2 96 I&O: 06/29/17 06/30/17 07/01/17 06:59 06:59 06:59 Intake Total 715 0 Output Total 114 552 70 Balance -80 -552 -70 Result Diagrams: 06/30/17 05:25 06/30/17 05:24 <Bruce Blanchard K - Last Filed: 06/30/17 09:05> - Objective Vital Signs & Weight: Vital Signs (12 hours) Temp Pulse Resp BP Pulse Ox 06/30/17 09:38 93 L 06/30/17 08:00 98.2 F 19 06/30/17 07:06 98.5 F 78 20 94 L 06/30/17 06:24 78 120/62 06/30/17 06:22 76 20 97 06/30/17 06:00 12 06/30/17 04:00 14 06/30/17 03:00 98.5 F 06/30/17 02:56 72 12 98 06/30/17 02:00 13 06/30/17 00:00 12 06/29/17 23:00 98.4 F Weight Admit Weight 143.335 kg Weight 146.6 kg Most Recent Monitor Data Heart Rate from ECG 95 NIBP 163/80 NIBP BP-Mean 127 Respiration from ECG 15 SpO2 88 I&O: 06/29/17 06/30/17 07/01/17 06:59 06:59 06:59 Intake Total 715 0 240 Output Total 795 552 645 [facility] -80 -552 -405 Result Diagrams: 06/30/17 05:25 06/30/17 05:24 <Kendra Nicholson - Last Filed: 06/30/17 10:37> Phys Exam - Physical Examination Constitutional: NAD HEENT: PERRLA, moist MMs trach collar in place on mech vent Respiratory: no wheezing, clear to auscultation bilateral Cardiovascular: RRR, no significant murmur Gastrointestinal: soft, non-tender Neurological: moves all 4 limbs Psychiatric: A&O x 3 Skin: no rash <Bruce Blanchard - Last Filed: 06/30/17 09:05> Dx/Plan (1) Acute on chronic respiratory failure with hypoxia and hypercapnia Code(s): J96.21 - ACUTE AND CHRONIC RESPIRATORY FAILURE WITH HYPOXIA; J96.22 - ACUTE AND CHRONIC RESPIRATORY FAILURE WITH HYPERCAPNIA Status: Acute Plan: Satting well on spontaneous breathing on mech vent via trach collar in no resp distress Still unclear eitiology of these hypoxic episodes, however anxiety likely plays a strong role in this Will cont. IV steroids started by Pulm and wean off mech vent today back to trach collar Pt w/o humidified trach collar at home w/ nebulizers via [facility] in place at home w/ family member who helps care for her CM contacted [facility] and they will send someone to home to check her O2 equipment to confirm proper functionality Will speak w/ Pulm again today and explore possible SNF placement (2) Anxiety Code(s): F41.9 - ANXIETY DISORDER, UNSPECIFIED Status: Chronic Plan: Will restart pt's home anxiety medication Cont. w/ buspar, will plan to increase dosage tomorrow to 10 mg BID if no improvement in anxiety (3) Diabetes mellitus Code(s): E11.9 - TYPE 2 DIABETES MELLITUS WITHOUT COMPLICATIONS Status: Chronic Qualifiers: Diabetes mellitus type: type 2 Diabetes mellitus complication status: without complication Diabetes mellitus [facility] insulin use: without [facility] use Qualified Code(s): E11.9 - Type 2 diabetes mellitus without complications Plan: BG 70's-100's Cont. current regimen Diabetic diet (4) Morbid obesity Code(s): E66.01 - MORBID (SEVERE) OBESITY DUE TO EXCESS CALORIES Status: Chronic Plan: Cont. on w/ caloric deficit to promote weight loss Pt not a surgical candidate for weight loss surgery Pt w/ minimal reserve w/ pickwickian and COPD w/ small insults pushing her into respiratory distress Will continue to encourage weight loss to help improve pt's overall respiratory status <Bruce Blanchard - Last Filed: 06/30/17 09:05> Attending Addendum - Attending Addendum I personally evaluated the patient and discussed the management with Dr. Blanchard I agree with the History, Examination, Assessment and Plan documented above with any addition or exceptions noted below- Patient feels better but still c/o chest tightness. Afebrile VSS A/P: 1) Acute on chronic respiratory failure. Evening events noted; patient placed back on vent overnight due to low O2 sats. Back on trach collar this morning. 2) DM- stable, 3) Anxiety- continue alprazolam; consider addition of buspar. <Kendra Nicholson - Last Filed: 06/30/17 10:37>
[2017-06-30] MEDS: Saccharomyces boulardii 250 MG CAP PO SCH (11:26)
[2017-06-30] MEDS: Aspirin 325 MG TAB PO SCH (11:26)
[2017-06-30] MEDS: Olopatadine HCl 100 DROP/5 ML BOT EA EYE SCH ×2 (11:27→19:30)
[2017-06-30] MEDS: busPIRone HCl 5 MG TAB PO SCH ×2 (11:34→19:29)
[2017-07-01] MEDS: ALPRAZolam 0.5 MG TAB PO PRN (01:04)
[2017-07-01] MEDS: diphenhydrAMINE HCl 50 MG/ML 1 ML VIAL IVP PRN ×3 (04:05→22:02)
[2017-07-01 05:30] LABS: Band 2 % (5-11); Hematocrit 36.9 % (36.0-47.0); Hypochromia SLIGHT = 6-15 cells (100X) (0-5/hpf); Mean Platelet Volume 8.8 fL (7.4-10.4); Microcytosis SLIGHT = 6-15 cells (100X) (0-5/hpf); Neutrophil 89 % (42-75); Red Blood Cell (RBC) Count 4.75 mill/uL (4.20-5.40); White Blood Cell (WBC) Count 10.2 thou/uL (4.8-10.8)
[2017-07-01 05:34] LABS: Anion Gap 15 mmol/L (10-20); BUN (Urea Nitrogen) 26 mg/dL (9.8-20.1); Calc. Creatinine Clearance 103 mL/min (70-130); Calcium 9.1 mg/dL (7.8-10.44); Carbon Dioxide 33 mmol/L (22-29); Chloride 93 mmol/L (98-107); Estimated GFR-MDRD 48
[2017-07-01] MEDS: Lorazepam 2 MG/ML VIAL SLOW IVP PRN ×3 (05:38→16:18)
--- NOTE | 2017-07-01 07:10 | PRG ---
DATE OF SERVICE: 07/01/2017 SUBJECTIVE: She remains in the CCU. She did not require mechanical ventilation after she woke up y esterday. She is complaining of chest tightness. PHYSICAL EXAMINATION: VITAL SIGNS: Temperature is 98.4, pulse 93, blood pressure 117/54, 24-hour intake 1185, output 2285 . HEENT: Unremarkable. NECK: No JVD. LUNGS: She has a faint wheeze in the right chest. Left side is clear. CARDIAC: S1 and S2 regular. ABDOMEN: Soft, obese, nontender. EXTREMITIES: No clubbing, cyanosis, or edema. LABORATORY DATA: White blood cell count 10.2, hemoglobin 11, hematocrit 36.9, platelet count 345. Sodium 136, potassium 4.6, chloride 93, CO2 of 33, BUN 26, creatinine 1.3, glucose 245. ASSESSMENT: 1. Chronic respiratory failure requiring mechanical ventilation intermittently. 2. Morbid obesity. 3. Underlying obstructive sleep apnea. 4. Severe anxiety. PLAN: For the time being, we are continuing IV steroids. She can probably transfer to the [facility] care unit. She may need to be started on something else for her psychiatric issues. For the t alfredo being, she is continuing IV steroids. Prognosis is guarded.
[2017-07-01] MEDS ORDERED: busPIRone HCl 5 MG TAB PO SCH (07:11)
[2017-07-01] MEDS: Aspirin 325 MG TAB PO SCH (08:15)
[2017-07-01] MEDS: Saccharomyces boulardii 250 MG CAP PO SCH (08:15)
[2017-07-01] MEDS: Enoxaparin Sodium 40 MG/0.4 ML SYRINGE SC SCH (08:15)
[2017-07-01] MEDS: Olopatadine HCl 100 DROP/5 ML BOT EA EYE SCH ×2 (08:16→21:41)
[2017-07-01] MEDS: Escitalopram Oxalate 10 mg Tablet PO SCH (08:35)
--- NOTE | 2017-07-01 09:12 | PDOC.FM ---
- Subjective Subjective: Pt endorsing lower abdominal/suprapubic discomfort this AM. Asking for urology referral. Still endorsing anxiety. States has been on buspar before w/ minimal efficacy. No other complaints. On trach collar. VSS, afebrile. Pt getting OOB w / PT - Objective MAR Reviewed: Yes Vital Signs & Weight: Vital Signs (12 hours) Temp Pulse Resp Pulse Ox 07/01/17 07:51 98.7 F 85 18 98 07/01/17 07:08 85 18 96 07/01/17 07:00 98.7 F 07/01/17 03:00 98.4 F 07/01/17 02:21 94 24 H 96 06/30/17 23:00 98.6 F 06/30/17 22:21 95 22 H 95 Weight Admit Weight 143.335 kg Weight 146.6 kg Most Recent Monitor Data Heart Rate from ECG 89 NIBP 116/53 NIBP BP-Mean 77 Respiration from ECG 24 SpO2 98 I&O: 06/30/17 07/01/17 07/02/17 06:59 06:59 06:59 Intake Total 0 1185 240 Output Total 552 2285 220 Balance -808 -3850 20 Result Diagrams: 07/01/17 03:28 07/01/17 03:28 <Bruce Blanchard - Last Filed: 07/01/17 09:11> - Objective Vital Signs & Weight: Vital Signs (12 hours) Temp Pulse Resp Pulse Ox 07/01/17 07:51 98.7 F 85 18 98 07/01/17 07:08 85 18 96 07/01/17 07:00 98.7 F 07/01/17 03:00 98.4 F 07/01/17 02:21 94 24 H 96 06/30/17 23:00 98.6 F 06/30/17 22:21 95 22 H 95 Weight Admit Weight 143.335 kg Weight 146.6 kg Most Recent Monitor Data Heart Rate from ECG 103 NIBP 131/73 NIBP BP-Mean 95 Respiration from ECG 24 SpO2 96 I&O: 06/30/17 07/01/17 07/02/17 06:59 06:59 06:59 Intake Total 0 1185 240 Output Total 552 2285 260 Balance -059 -1100 -20 Result Diagrams: 07/01/17 03:28 07/01/17 03:28 <Kendra Nicholson - Last Filed: 07/01/17 10:11> Phys Exam - Physical Examination Constitutional: NAD HEENT: moist MMs trach collar in place Respiratory: no wheezing, clear to auscultation bilateral Cardiovascular: RRR Gastrointestinal: soft, no distention, positive bowel sounds mild suprapubic tenderness Musculoskeletal: pulses present Neurological: moves all 4 limbs Psychiatric: A&O x 3 <Bruce Blanchard - Last Filed: 07/01/17 09:11> Dx/Plan (1) Acute on chronic respiratory failure with hypoxia and hypercapnia Code(s): J96.21 - ACUTE AND CHRONIC RESPIRATORY FAILURE WITH HYPOXIA; J96.22 - ACUTE AND CHRONIC RESPIRATORY FAILURE WITH HYPERCAPNIA Status: Acute Plan: Satting well on trach collar this AM Still unclear eitiology of these hypoxic episodes, however anxiety/panick attacks is likely cause Will cont. IV steroids per pulm Possible TXR to IMCU per pulm Encouraged minimal use of speaking valve to help with secretions/drainage Cont. w/ mucinex Cont. w/ Duonebs Pt w/o humidified trach collar at home w/ nebulizers via HH in place at home w/ family member who helps care for her CM contacted [facility] and they will send someone to home to check her O2 equipment to confirm proper functionality Pt refusing SNF placement (2) Anxiety Code(s): F41.9 - ANXIETY DISORDER, UNSPECIFIED Status: Chronic Plan: Will change buspar to Lexapro as pt states buspar has not worked for her in the past Start w/ 5 mg x 7 days and increase to 10 mg thereafter Will take 2+ weeks to see any affect Cont. w/ home and prn benzos Hopeful that if anxiety is able to get under control these hypoxic episodes will resolve as this is the most likely nidus w/ negative work-up for alternative causes thus far (3) Diabetes mellitus Code(s): E11.9 - TYPE 2 DIABETES MELLITUS WITHOUT COMPLICATIONS Status: Chronic Qualifiers: Diabetes mellitus type: type 2 Diabetes mellitus complication status: without complication Diabetes mellitus extermination inspector insulin use: without extermination inspector use Qualified Code(s): E11.9 - Type 2 diabetes mellitus without complications Plan: BG 70's-100's Cont. current regimen Diabetic diet (4) Morbid obesity Code(s): E66.01 - MORBID (SEVERE) OBESITY DUE TO EXCESS CALORIES Status: Chronic Plan: Cont. on w/ caloric deficit to promote weight loss Pt not a surgical candidate for weight loss surgery Pt w/ minimal reserve w/ pickwickian and COPD w/ small insults pushing her into respiratory distress Will continue to encourage weight loss to help improve pt's overall respiratory status (5) Acute kidney injury Code(s): N17.9 - ACUTE KIDNEY FAILURE, UNSPECIFIED Status: Acute Plan: Likely from one time dose of lasix yesterday Will repeat BMP in the AM and consider gentle fluids if no resolution w/ PO intake (6) UTI (urinary tract infection) Status: Suspected Qualifiers: Urinary tract infection type: acute cystitis Plan: Pt w/ endorsed suprapubic pain Likely 2/2 irritation from padron catheter Will repeat U/A 2/2 recent hx of UTI w/ resistant klebsiella No signs of systemic infection at this time Will hold off on abx until U/A results <Bruce Blanchard - Last Filed: 07/01/17 09:11> Attending Addendum - Attending Addendum I personally evaluated the patient and discussed the management with Dr. Blanchard I agree with the History, Examination, Assessment and Plan documented above with any addition or exceptions noted below- Patient just finished working with PT; States that she did not sleep last night due to suprapubic pain. Afebrile VSS. A/P: 1) Acute on chronic respiratory failure- continue current support. 2) Suprapubic pain- check UA, 3) DM- stable <Kendra Nicholson - Last Filed: 07/01/17 10:11>
[2017-07-01 10:08] LABS: Bilirubin Negative (Negative); Blood, Urine Small (Negative); Glucose, Urine (Dipstick) Negative (Negative); Ketone, Urine Negative (Negative); Nitrite Negative (Negative); Protein, Urine (Dipstick) Negative (Neg-Trace); Urobilinogen 0.2 mg/dL (0.2-1.0)
[2017-07-01 10:10] LABS: Bacteria/HPF None Seen HPF (None Seen); Hyaline Casts/LPF 4-6 HYALINE CAST LPF (0-3 Hyaline); WBC/HPF 21-50 HPF (0-3)
[2017-07-01 14:54] VITALS: BMI 57.2
[2017-07-01] MEDS: Morphine Sulfate 2 MG/ML SYRINGE SLOW IVP SCH (21:42)
[2017-07-02] MEDS: Lorazepam 2 MG/ML VIAL SLOW IVP PRN ×4 (00:05→20:43)
[2017-07-02] MEDS: diphenhydrAMINE HCl 50 MG/ML 1 ML VIAL IVP PRN ×3 (03:30→22:29)
[2017-07-02 04:45] LABS: BUN (Urea Nitrogen) 28 mg/dL (9.8-20.1); Calc. Creatinine Clearance 131 mL/min (70-130); Calcium 9.1 mg/dL (7.8-10.44); Estimated GFR-MDRD 64
[2017-07-02 04:46] LABS: Band 1 % (5-11); Hematocrit 37.9 % (36.0-47.0); Mean Platelet Volume 8.7 fL (7.4-10.4); Neutrophil 90 % (42-75); Red Blood Cell (RBC) Count 4.82 mill/uL (4.20-5.40); White Blood Cell (WBC) Count 8.7 thou/uL (4.8-10.8)
[2017-07-02 04:53] LABS: Anion Gap 13 mmol/L (10-20); Carbon Dioxide 35 mmol/L (22-29); Chloride 94 mmol/L (98-107)
[2017-07-02] MEDS: Morphine Sulfate 2 MG/ML SYRINGE SLOW IVP SCH (06:26)
--- NOTE | 2017-07-02 07:42 | PRG ---
DATE OF SERVICE: 07/02/2017 The patient has continued to complain of chest tightness. She is basically upset about everything. PHYSICAL EXAMINATION: VITAL SIGNS: On exam her temperature is 98.2, pulse 90, blood pressure 157/83. 24 hour intake 692, output 1930. HEENT: Unremarkable. NECK: Trach in good position. LUNGS: Clear. No wheezing. CARDIOVASCULAR: S1, S2 regular. ABDOMEN: Obese, soft. EXTREMITIES: No edema. LABORATORY DATA: Sodium 137, potassium 4.8, chloride 94, CO2 35, BUN 28, creatinine 1.1, glucose 14 8. White blood cell count 8.7, hematocrit 37.9, platelet count 327. ASSESSMENT: 1. I think most of her issues now are related to anxiety and depression. 2. Respiratory failure seems to be resolved and she continues to have some somatic complaints in th at regard. 3. Underlying obstructive sleep apnea. PLAN: 1. She was started on Lexapro yesterday. 2. I have changed her trach back to up to a cuffless trach. 3. She will likely need to remain either in ICU or IMCU for quite some time as she is very problema tic on the nursing staff.
[2017-07-02] MEDS: Saccharomyces boulardii 250 MG CAP PO SCH (08:34)
[2017-07-02] MEDS: Olopatadine HCl 100 DROP/5 ML BOT EA EYE SCH ×2 (08:34→20:43)
[2017-07-02] MEDS: Escitalopram Oxalate 10 mg Tablet PO SCH (08:34)
[2017-07-02] MEDS: Aspirin 325 MG TAB PO SCH (08:34)
[2017-07-02] MEDS: Enoxaparin Sodium 40 MG/0.4 ML SYRINGE SC SCH (08:35)
--- NOTE | 2017-07-02 10:36 | PDOC.FM ---
- Subjective Subjective: Pt upset that her replacement trach has not arrived yet this AM. States she didn 't sleep at all overnight but slept through the night according to nursing staff. Improvement in abdominal pain w/ anti-spasmodic. VSS, afebrile. Esteban spoke w/ sister today who is wanting to try to transfer her to hospital in [place]. - Objective MAR Reviewed: Yes Vital Signs & Weight: Vital Signs (12 hours) Temp Pulse Resp Pulse Ox 07/02/17 08:00 98.3 F 93 22 H 96 07/02/17 07:38 93 22 H 96 07/02/17 04:00 98.2 F 07/02/17 02:05 97 07/02/17 00:00 98.1 F Weight Admit Weight 143.335 kg Weight 146.6 kg Most Recent Monitor Data Heart Rate from ECG 94 NIBP 140/71 NIBP BP-Mean 94 Respiration from ECG 21 SpO2 97 I&O: 07/01/17 07/02/17 07/03/17 06:59 06:59 06:59 Intake Total 1185 1692 240 Output Total 2285 1930 210 Balance -1100 -238 30 Result Diagrams: 07/02/17 04:19 07/02/17 04:19 <Bruce Blanchard - Last Filed: 07/02/17 10:33> - Objective Vital Signs & Weight: Vital Signs (12 hours) Temp Pulse Resp Pulse Ox 07/02/17 08:00 98.3 F 93 22 H 96 07/02/17 07:38 93 22 H 96 07/02/17 04:00 98.2 F 07/02/17 02:05 97 07/02/17 00:00 98.1 F Weight Admit Weight 143.335 kg Weight 146.6 kg Most Recent Monitor Data Heart Rate from ECG 94 NIBP 140/71 NIBP BP-Mean 94 Respiration from ECG 21 SpO2 97 I&O: 07/01/17 07/02/17 07/03/17 06:59 06:59 06:59 Intake Total 1185 1692 240 Output Total 2285 1930 210 Balance -1100 -238 30 Result Diagrams: 07/02/17 04:19 07/02/17 04:19 <Kendra Nicholson - Last Filed: 07/02/17 10:48> Phys Exam - Physical Examination Constitutional: NAD HEENT: moist MMs Respiratory: no wheezing, clear to auscultation bilateral Cardiovascular: RRR Gastrointestinal: soft, non-tender, positive bowel sounds Musculoskeletal: pulses present Neurological: moves all 4 limbs Psychiatric: A&O x 3 Deviation from normal: anxious Skin: cap refill <2 seconds <Bruce Blanchard - Last Filed: 07/02/17 10:33> Dx/Plan (1) Acute on chronic respiratory failure with hypoxia and hypercapnia Code(s): J96.21 - ACUTE AND CHRONIC RESPIRATORY FAILURE WITH HYPOXIA; J96.22 - ACUTE AND CHRONIC RESPIRATORY FAILURE WITH HYPERCAPNIA Status: Acute Plan: Satting well on trach collar this AM Still unclear eitiology of these hypoxic episodes, however anxiety/panick attacks is likely cause and Pulm agrees likely somatic in nature Will cont. weaning IV steroids per pulm Will contact hospital in [place] for possible TXR as no psych at this facility Encouraged minimal use of speaking valve to help with secretions/drainage Cont. w/ mucinex Cont. w/ Duonebs Pt w/o humidified trach collar at home w/ nebulizers via HH in place at home w/ family member who helps care for her CM contacted [facility] and they will send someone to home to check her O2 equipment to confirm proper functionality Pt refusing SNF placement (2) Anxiety Code(s): F41.9 - ANXIETY DISORDER, UNSPECIFIED Status: Chronic Plan: Will increase lexapro on day 7 Possible txr to [place] w/ psych available w/ pt having somatization of her pulm sxs. Will take 2+ weeks to see any affect Cont. w/ home and prn benzos (3) Diabetes mellitus Code(s): E11.9 - TYPE 2 DIABETES MELLITUS WITHOUT COMPLICATIONS Status: Chronic Qualifiers: Diabetes mellitus type: type 2 Diabetes mellitus complication status: without complication Diabetes mellitus penitentiary insulin use: without termite treater use Qualified Code(s): E11.9 - Type 2 diabetes mellitus without complications Plan: BG 70's-100's Cont. current regimen Diabetic diet (4) Morbid obesity Code(s): E66.01 - MORBID (SEVERE) OBESITY DUE TO EXCESS CALORIES Status: Chronic Plan: Cont. on w/ caloric deficit to promote weight loss Pt not a surgical candidate for weight loss surgery Pt w/ minimal reserve w/ pickwickian and COPD w/ small insults pushing her into respiratory distress Will continue to encourage weight loss to help improve pt's overall respiratory status (5) Bladder spasm Status: Acute Plan: Cont. w/ urispas <Bruce Blanchard - Last Filed: 07/02/17 10:33> Attending Addendum - Attending Addendum I personally evaluated the patient and discussed the management with Dr. Blanchard I agree with the History, Examination, Assessment and Plan documented above with any addition or exceptions noted below- Patient continues to c/o chest tightness. Afebrile VSS A/P: 1) Acute on chronic respiratory failure- O2 saturations stable on trach collar; wean steroids as per pulmonary, 2) Anxiety - started on lexapro; continue to monitor, 3) DM- stable. <Kendra Nicholson - Last Filed: 07/02/17 10:48>
[2017-07-03] MEDS: Lorazepam 2 MG/ML VIAL SLOW IVP PRN ×4 (01:23→13:46)
[2017-07-03] MEDS: diphenhydrAMINE HCl 50 MG/ML 1 ML VIAL IVP PRN ×3 (02:38→19:49)
[2017-07-03 04:47] LABS: Anion Gap 13 mmol/L (10-20); BUN (Urea Nitrogen) 29 mg/dL (9.8-20.1); Calc. Creatinine Clearance 131 mL/min (70-130); Calcium 8.6 mg/dL (7.8-10.44); Carbon Dioxide 33 mmol/L (22-29); Chloride 96 mmol/L (98-107); Estimated GFR-MDRD 64
[2017-07-03 04:53] LABS: Band 1 % (5-11); Hematocrit 39.9 % (36.0-47.0); Mean Platelet Volume 8.5 fL (7.4-10.4); Neutrophil 80 % (42-75); Red Blood Cell (RBC) Count 4.99 mill/uL (4.20-5.40)
--- NOTE | 2017-07-03 06:03 | PDOC.FM ---
- Subjective Subjective: This morning, Ms. Mayorga is sleeping deeply. She does not appear in distress respiratory or otherwise. She has nothing going in her lines; she is on humidified trach collar off of the vent. Taylor in place with adequate output. - Objective MAR Reviewed: Yes Vital Signs & Weight: Vital Signs (12 hours) Temp Pulse Resp Pulse Ox 07/03/17 05:00 98.2 F 07/03/17 02:41 100 20 96 07/03/17 00:00 97.8 F 07/02/17 22:31 103 H 26 H 86 L 07/02/17 20:00 97.6 F 104 H 21 H 93 L 07/02/17 18:25 90 18 97 Weight Admit Weight 143.335 kg Weight 146.6 kg Most Recent Monitor Data Heart Rate from ECG 92 NIBP 108/48 NIBP BP-Mean 67 Respiration from ECG 27 SpO2 94 I&O: 07/01/17 07/02/17 07/03/17 06:59 06:59 06:59 Intake Total 1185 1692 1700 Output Total 2285 1930 1430 Balance -1100 -238 270 Result Diagrams: 07/03/17 04:02 07/03/17 04:02 Phys Exam - Physical Examination Constitutional: NAD Respiratory: no wheezing, no rales, no rhonchi, clear to auscultation bilateral mild expiratory wheezing at times Cardiovascular: RRR difficult to ascultate 2/2 to habitus Gastrointestinal: soft, non-tender, no distention, positive bowel sounds Musculoskeletal: no edema Dx/Plan (1) Acute on chronic respiratory failure with hypoxia and hypercapnia Code(s): J96.21 - ACUTE AND CHRONIC RESPIRATORY FAILURE WITH HYPOXIA; J96.22 - ACUTE AND CHRONIC RESPIRATORY FAILURE WITH HYPERCAPNIA Status: Acute Plan: She is currently on humidified trach collar. She was on trach collar at home as well, this is not new during this stay. The recap is that she was admitted 2/2 to hypoxia in the 60s with activity thought to be 2/2 to pna but this was found to be atelectasis and she is not currently on abx. She has severe anxiety and is receiving lexapro manjula and xanax prn. This is thought to be the cause of her hypoxia. She had a code called during this stay and has been mechanically ventilated x2 as she becomes apneic with anxiety spells. Family has discussed transfer and we have arranged for transfer to [place] with her Dr. Main who is familiar with her care. We are awaiting a bed for placement there. (2) Diabetes mellitus Code(s): E11.9 - TYPE 2 DIABETES MELLITUS WITHOUT COMPLICATIONS Status: Chronic Qualifiers: Diabetes mellitus type: type 2 Diabetes mellitus complication status: without complication Diabetes mellitus correction insulin use: without correction use Qualified Code(s): E11.9 - Type 2 diabetes mellitus without complications Plan: Glucose is adequate for care in CCU has been generally <200 (3) Morbid obesity Code(s): E66.01 - MORBID (SEVERE) OBESITY DUE TO EXCESS CALORIES Status: Chronic Plan: Likely contributing to her chronic resp failure. (4) GLORIA (obstructive sleep apnea) Code(s): G47.33 - OBSTRUCTIVE SLEEP APNEA (ADULT) (PEDIATRIC) Status: Chronic Plan: She is on trach collar and has not been using CPAP in her stay here. Unsure if she uses it at home, will ask when she wakes up but nursing and RT do not think she does. (5) Obesity hypoventilation syndrome Code(s): E66.2 - MORBID (SEVERE) OBESITY WITH ALVEOLAR HYPOVENTILATION Status : Chronic Plan: as above, likely contributor to her chronic resp failure
[2017-07-03] MEDS: Aspirin 325 MG TAB PO SCH (09:47)
[2017-07-03] MEDS: Enoxaparin Sodium 40 MG/0.4 ML SYRINGE SC SCH (09:47)
[2017-07-03] MEDS: Saccharomyces boulardii 250 MG CAP PO SCH (09:47)
[2017-07-03] MEDS: Escitalopram Oxalate 10 mg Tablet PO SCH (09:47)
[2017-07-03] MEDS: Olopatadine HCl 100 DROP/5 ML BOT EA EYE SCH ×2 (09:48→21:36)
--- NOTE | 2017-07-03 11:56 | PRG ---
DATE OF SERVICE: 07/03/2017 SERVICE: Pulmonary Medicine. INTERVAL HISTORY: The patient is doing really well from a respiratory standpoint. She seems to per severating over the idea that we used her home tracheostomy to replace her previous one. She would like her tracheostomy to be at bedside right now. I have reminded her that we ordered that her trac heostomy and replacement should be here Wednesday or Wednesday. That being said, she currently denies an y fevers, chills, nausea, vomiting or chest discomfort. She is breathing comfortably. PHYSICAL EXAMINATION: VITAL SIGNS: Afebrile, pulse 95, blood pressure 165/84, respirations 23, saturation 96% on 25% FiO2 . GENERAL: Patient is awake, alert, in no apparent distress. LUNGS: Excellent air entry. There is no prolonged expiratory phase. No wheezing, rhonchi, or crac kles are appreciated though adventitious sounds are difficult to hear because of body habitus. HEART: Normal rate, regular. ABDOMEN: Soft, nontender, nondistended, bowel sounds positive. MUSCULOSKELETAL: No cyanosis or clubbing. There is no pitting in the bilateral lower extremities. NEUROLOGIC: Grossly nonfocal. LABORATORY DATA: WBC 9.0, hemoglobin 11.2, and platelets 340,000, stable. Basic metabolic profile is essentially unremarkable/stable with bicarbonate of 33. Creatinine is stable at 1.06. Urine cul ture x3 and blood culture x2 are unremarkable. ASSESSMENT: 1. Chronic hypoxic and hypercapnic respiratory failure. 2. Obesity hypoventilation syndrome. 3. Obstructive sleep apnea. 4. Anxiety disorder. PLAN: The patient is doing fantastic from a respiratory standpoint. Pulmonary or Critical Care josé l continue to follow while she remains in the ICU. I will give her laboratory holiday tomorrow as phuong fox have been stable for some time.
[2017-07-03] MEDS: ALPRAZolam 0.5 MG TAB PO PRN (12:41)
--- NOTE | 2017-07-03 14:09 | PRG ---
DATE OF SERVICE: 07/03/2017 Ms. Mayorga is resting quietly in no distress. We are awaiting transfer to [facility] as p er Ms. Mayorga's requested.
[2017-07-04] MEDS: Lorazepam 2 MG/ML VIAL SLOW IVP PRN ×3 (01:09→11:06)
[2017-07-04] MEDS: diphenhydrAMINE HCl 50 MG/ML 1 ML VIAL IVP PRN ×3 (02:20→21:09)
[2017-07-04] MEDS: ALPRAZolam 0.5 MG TAB PO PRN ×2 (03:45→21:09)
[2017-07-04 05:15] LABS: Anion Gap 10 mmol/L (10-20); BUN (Urea Nitrogen) 29 mg/dL (9.8-20.1); Calc. Creatinine Clearance 117 mL/min (70-130); Calcium 8.7 mg/dL (7.8-10.44); Carbon Dioxide 37 mmol/L (22-29); Chloride 96 mmol/L (98-107); Estimated GFR-MDRD 57
[2017-07-04 05:18] LABS: Band 3 % (5-11); Hematocrit 39.2 % (36.0-47.0); Mean Platelet Volume 8.4 fL (7.4-10.4); Neutrophil 89 % (42-75); Red Blood Cell (RBC) Count 4.91 mill/uL (4.20-5.40)
--- NOTE | 2017-07-04 06:13 | PDOC.FM ---
- Subjective Subjective: Pt is sleeping today but awakens when I speak to her. She is not in any distress. Moved beds o/n but other acute events. Awaiting transfer. I saw in Dr. Chong's note that we are waiting for trach supplies to arrive M or T - Objective MAR Reviewed: Yes Vital Signs & Weight: Vital Signs (12 hours) Temp Pulse Resp Pulse Ox 07/04/17 04:23 96 23 H 96 07/04/17 04:00 98.8 F 07/04/17 01:13 94 31 H 95 07/04/17 00:00 98.4 F 07/03/17 22:05 91 20 96 07/03/17 20:00 98.6 F 91 20 97 07/03/17 18:28 100 20 95 Weight Admit Weight 143.335 kg Weight 146.6 kg Most Recent Monitor Data Heart Rate from ECG 104 NIBP 106/50 NIBP BP-Mean 66 Respiration from ECG 23 SpO2 93 I&O: 07/02/17 07/03/17 07/04/17 06:59 06:59 06:59 Intake Total 1692 1700 1050 Output Total 1930 1485 1650 Balance -238 215 -600 Result Diagrams: 07/04/17 04:33 07/04/17 04:33 Phys Exam - Physical Examination Constitutional: NAD HEENT: PERRLA, moist MMs Respiratory: no wheezing, no rales, no rhonchi Cardiovascular: RRR difficult to ascultate 2/2 to body habitus Gastrointestinal: soft, non-tender, no distention Musculoskeletal: no edema Neurological: moves all 4 limbs Psychiatric: normal affect Dx/Plan (1) Acute on chronic respiratory failure with hypoxia and hypercapnia Code(s): J96.21 - ACUTE AND CHRONIC RESPIRATORY FAILURE WITH HYPOXIA; J96.22 - ACUTE AND CHRONIC RESPIRATORY FAILURE WITH HYPERCAPNIA Status: Acute Plan: She is currently on humidified trach collar. She was on trach collar at home as well, this is not new during this stay. The recap is that she was admitted 2/2 to hypoxia in the 60s with activity thought to be 2/2 to pna but this was found to be atelectasis and she is not currently on abx. She has severe anxiety and is receiving lexapro manjula and xanax prn. This is thought to be the cause of her hypoxia. She had a code called during this stay and has been mechanically ventilated x2 as she becomes apneic with anxiety spells. Family has discussed transfer and we have arranged for transfer to [place] with her Dr. Main who is familiar with her care. We are awaiting a bed for placement there. (2) Diabetes mellitus Code(s): E11.9 - TYPE 2 DIABETES MELLITUS WITHOUT COMPLICATIONS Status: Chronic Qualifiers: Diabetes mellitus type: type 2 Diabetes mellitus complication status: without complication Diabetes mellitus [facility] insulin use: without terminal clerk use Qualified Code(s): E11.9 - Type 2 diabetes mellitus without complications Plan: Glucose is adequate for care in CCU has been generally <200 (3) Morbid obesity Code(s): E66.01 - MORBID (SEVERE) OBESITY DUE TO EXCESS CALORIES Status: Chronic Plan: Likely contributing to her chronic resp failure. (4) GLORIA (obstructive sleep apnea) Code(s): G47.33 - OBSTRUCTIVE SLEEP APNEA (ADULT) (PEDIATRIC) Status: Chronic Plan: She is on trach collar and has not been using CPAP in her stay here. Unsure if she uses it at home, will ask when she wakes up but nursing and RT do not think she does. (5) Obesity hypoventilation syndrome Code(s): E66.2 - MORBID (SEVERE) OBESITY WITH ALVEOLAR HYPOVENTILATION Status : Chronic Plan: as above, likely contributor to her chronic resp failure
[2017-07-04] MEDS: Aspirin 325 MG TAB PO SCH (08:52)
[2017-07-04] MEDS: Enoxaparin Sodium 40 MG/0.4 ML SYRINGE SC SCH (08:52)
[2017-07-04] MEDS: Saccharomyces boulardii 250 MG CAP PO SCH (08:53)
[2017-07-04] MEDS: Escitalopram Oxalate 10 mg Tablet PO SCH (08:53)
[2017-07-04 14:33] VITALS: BP 163/74
--- NOTE | 2017-07-04 14:38 | PRG ---
DATE OF SERVICE: 07/04/2017 SERVICE: Pulmonary Medicine. INTERVAL HISTORY: The patient is doing fine from a respiratory standpoint. She continues to be lit tle upset about her tracheostomy. I have reminded her that we have ordered the piece, and it should be in today or Wednesday. She denies any current fevers or chills. There were no overnight events. She is breathing comfortably on trach collar. There were no overnight events. PHYSICAL EXAMINATION: VITAL SIGNS: Afebrile, pulse 99, blood pressure 116/60, respirations 23, saturation 95% on 25% FiO2 . HEENT: Normocephalic, atraumatic. Sclerae are white, conjunctivae pink. Oral mucosa is moist with out lesions. LUNGS: Decreased air entry, but there is no prolonged expiratory phase. I do not appreciate any cr ackles, wheezing or rhonchi, but body habitus precludes accurate evaluation of these things. HEART: Normal rate and regular. ABDOMEN: Soft, nontender, and nondistended. Bowel sounds positive. MUSCULOSKELETAL: No cyanosis or clubbing. No pitting in the bilateral lower extremities. NEUROLOGIC: Grossly nonfocal. LABORATORY DATA: WBC 8.0, hemoglobin 11.3, and platelets 297,000. Neutrophil count is 89% with 3% bands. Creatinine 1.18. Basic metabolic profile is otherwise unremarkable/stable. Bicarbonate has gone up to 37. Potassium 5.0. Urine culture x3 and blood culture x2 is unremarkable. ASSESSMENT: 1. Chronic hypoxic and hypercapnic respiratory failure. 2. Obesity hypoventilation syndrome. 3. Obstructive sleep apnea. 4. Anxiety disorder. PLAN: The patient is doing very well from a respiratory standpoint. From my standpoint, she is sta ble for transition out of the ICU, but because of some of her nursing requirements, may be better se rved by being in the IMCU. Once again, try to give her a lab holiday in the morning.
--- NOTE | 2017-07-04 14:41 | ADD-PRG ---
ADDENDUM: DATE OF SERVICE: 07/04/2017 This is an addendum to the note of Dr. Regi Rodriguez. OBJECTIVE: GENERAL: Ms. Mayorga is awake and alert in this morning. She appears to be in no distress. VITAL SIGNS: Her blood pressure is 128/70, pulse rate is 74. LUNGS: Sound clear. ABDOMEN: Soft. Still awaiting transfer to institution in [place].
[2017-07-04] MEDS: Ketotifen Fumarate 0.025% Ophth Soln 5 ml Bottle EA EYE SCH (21:10)
[2017-07-05] MEDS: Lorazepam 2 MG/ML VIAL SLOW IVP PRN ×2 (01:04→13:06)
--- NOTE | 2017-07-05 09:08 | PDOC.FM ---
- Subjective Subjective: Pt upset that she is not getting her rice krispy treats this AM 2/2 them having corn syrup in them and having an allergy to corn. Pt reportedly crying overnight 2/2 this. VSS, afebrile. Spoke w/ CM this AM and still pending open bed at [facility] in [facility]. - Objective MAR Reviewed: Yes Vital Signs & Weight: Vital Signs (12 hours) Temp Pulse Resp Pulse Ox 07/05/17 08:14 97 07/05/17 08:08 81 24 H 97 07/05/17 02:29 84 15 97 07/05/17 00:00 98.8 F 07/04/17 22:33 89 19 97 Weight Admit Weight 143.335 kg Weight 146.6 kg Most Recent Monitor Data Heart Rate from ECG 77 NIBP 110/36 NIBP BP-Mean 50 Respiration from ECG 22 SpO2 98 I&O: 07/04/17 07/05/17 07/06/17 06:59 06:59 06:59 Intake Total 1050 1310 Output Total 1705 1830 Balance -464 -218 Result Diagrams: 07/04/17 04:33 07/04/17 04:33 <Bruce Blanchard K - Last Filed: 07/05/17 09:05> - Objective Vital Signs & Weight: Vital Signs (12 hours) Temp Pulse Resp Pulse Ox 07/05/17 10:17 87 20 96 07/05/17 08:14 97 07/05/17 08:08 81 24 H 97 07/05/17 02:29 84 15 97 07/05/17 00:00 98.8 F Weight Admit Weight 143.335 kg Weight 146.6 kg Most Recent Monitor Data Heart Rate from ECG 77 NIBP 110/36 NIBP BP-Mean 50 Respiration from ECG 22 SpO2 98 I&O: 07/04/17 07/05/17 07/06/17 06:59 06:59 06:59 Intake Total 1050 1310 Output Total 1705 1830 Balance -730 -685 Result Diagrams: 07/04/17 04:33 07/04/17 04:33 <Mauro Coles - Last Filed: 07/05/17 10:54> Phys Exam - Physical Examination Constitutional: NAD HEENT: PERRLA, moist MMs trach in place on trach collar Respiratory: no wheezing, no rales Cardiovascular: RRR Gastrointestinal: soft, no distention, positive bowel sounds Musculoskeletal: pulses present Neurological: moves all 4 limbs Psychiatric: A&O x 3 Skin: cap refill <2 seconds <Bruce Blanchard - Last Filed: 07/05/17 09:05> Dx/Plan (1) Acute on chronic respiratory failure with hypoxia and hypercapnia Code(s): J96.21 - ACUTE AND CHRONIC RESPIRATORY FAILURE WITH HYPOXIA; J96.22 - ACUTE AND CHRONIC RESPIRATORY FAILURE WITH HYPERCAPNIA Status: Acute Plan: Satting well on trach collar this AM Hypoxic episodes likely 2/2 anxiety w/ panic attacks causing desaturation 2/2 breath holding during episode Will cont. weaning IV steroids per pulm Will contact hospital in [place] for possible TXR as no psych at this facility. Awaiting to hear back about open bed. Have been told Dr. Main will accept pt as he is familiar with her. Encouraged minimal use of speaking valve to help with secretions/drainage Cont. w/ mucinex Cont. w/ Duonebs Pt w/o humidified trach collar at home w/ nebulizers via HH in place at home w/ family member who helps care for her CM contacted [facility] and they will send someone to home to check her O2 equipment to confirm proper functionality Pt refusing SNF placement Awaiting replacement trach that was ordered last week (2) Anxiety Code(s): F41.9 - ANXIETY DISORDER, UNSPECIFIED Status: Chronic Plan: Will increase lexapro on day 7 of medication Possible txr to [place] w/ psych available w/ pt having somatization of her pulm sxs. Will take 2+ weeks to see any affect Cont. w/ home and prn benzos (3) Diabetes mellitus Code(s): E11.9 - TYPE 2 DIABETES MELLITUS WITHOUT COMPLICATIONS Status: Chronic Qualifiers: Diabetes mellitus type: type 2 Diabetes mellitus complication status: without complication Diabetes mellitus assisted insulin use: without assisted use Qualified Code(s): E11.9 - Type 2 diabetes mellitus without complications Plan: BG 70's-100's Cont. current regimen Diabetic diet (4) Morbid obesity Code(s): E66.01 - MORBID (SEVERE) OBESITY DUE TO EXCESS CALORIES Status: Chronic Plan: Cont. on w/ caloric deficit to promote weight loss Pt not a surgical candidate for weight loss surgery Pt w/ minimal reserve w/ pickwickian and COPD w/ small insults pushing her into respiratory distress Will continue to encourage weight loss to help improve pt's overall respiratory status (5) Bladder spasm Status: Acute Plan: Cont. w/ urispas <Bruce Blanchard - Last Filed: 07/05/17 09:05> Attending Addendum - Attending Addendum I personally evaluated the patient and discussed the management with Dr. Blanchard. I agree with the History, Examination, Assessment and Plan documented above with any addition or exceptions noted below. Patient continues to be stable. She continues to have mild respiratory issues when anxiety increases, but that seems to be improved with addition of SSRI therapy. We continue to await transfer to [place] with the patient's primary doctor there. Appreciate Pulm assistance with respiratory support/trach care. <Mauro Coles - Last Filed: 07/05/17 10:54>
[2017-07-05] MEDS: Aspirin 325 MG TAB PO SCH (09:41)
[2017-07-05] MEDS: Saccharomyces boulardii 250 MG CAP PO SCH (09:41)
[2017-07-05] MEDS: Enoxaparin Sodium 40 MG/0.4 ML SYRINGE SC SCH (09:41)
[2017-07-05] MEDS: Escitalopram Oxalate 10 mg Tablet PO SCH (09:42)
[2017-07-05] MEDS: Ketotifen Fumarate 0.025% Ophth Soln 5 ml Bottle EA EYE SCH (09:44)
[2017-07-05 10:59] VITALS: TEMP 98.4
--- NOTE | 2017-07-05 12:04 | PRG ---
DATE OF SERVICE: 07/05/2017 SERVICE: Pulmonary Medicine. INTERVAL HISTORY: The patient is doing great from a respiratory standpoint. She is breathing comfo rtably on trach collar. She has no specific complaints presently. She understands that her tracheo stomy should hopefully come today or tomorrow, but that was truthfully not in control of when it arr rosemary. She denies any current fevers, chills, nausea or vomiting. There were no overnight events. PHYSICAL EXAMINATION: VITAL SIGNS: Afebrile, pulse 88, blood pressure 141/64, respirations 20, saturation 96% on 25% FiO2 . HEENT: Normocephalic, atraumatic. Sclerae are white, conjunctivae pink. Oral and nasal mucosa is moist without lesions. LUNGS: Decent air entry. No prolonged expiratory phase. HEART: Normal rate, regular. ABDOMEN: Soft, nontender and nondistended. Bowel sounds positive. MUSCULOSKELETAL: No cyanosis or clubbing. No pitting in the bilateral lower extremities. NEUROLOGIC: Grossly nonfocal. ASSESSMENT: 1. Chronic hypoxic and hypercapnic respiratory failure. 2. Obesity hypoventilation syndrome. 3. Obstructive sleep apnea. 4. Anxiety disorder. PLAN: The patient is doing fine from a respiratory standpoint. At this point, she is stable for tr ansfer to the outside facility. Pulmonary Critical Care will continue to follow while she remains h ere. Once her tracheostomy arrives, it is to travel with her as it is a replacement for her home tr ach that we use.
--- NOTE | 2017-07-05 21:29 | DIS-2 ---
DATE OF ADMISSION: 06/25/2017 DATE OF DISCHARGE: 07/05/2017 ADMITTING PHYSICIAN: Benson Jackson M.D. DISCHARGE PHYSICIAN: Mauro Coles MD RESIDENT: Bruce Blanchard M.D. CONSULTS: Pulmonology. PROCEDURES: Mechanical ventilation through tracheostomy. PRIMARY DIAGNOSES: 1. Acute on chronic hypoxic hypercapnic respiratory failure secondary to panic attacks. 2. Severe anxiety. 3. Resistant Klebsiella urinary tract infection. 4. Atelectasis. SECONDARY DIAGNOSES: 1. Gastroesophageal reflux disease. 2. Chronic low back pain. 3. Obesity, morbid. DISCHARGE MEDICATIONS: 1. Xanax 0.5 mg p.o. b.i.d. as needed for anxiety. 2. Artificial tears 0.9 mL each eye daily. 3. Lexapro 10 mg p.o. daily. 4. [place] 5/325 mg p.o. q.4 hours as needed for pain. 5. DuoNeb 3 mL nebulizers q.4 hours as needed. 6. Ketotifen fumarate ophthalmic solution 0.025% 1 drop each eye b.i.d. 7. Imodium 2 mg caps p.o. as needed. 8. Claritin 10 mg p.o. daily. 9. Ativan 2 mg IV push q.4 hours as needed for anxiety. 10. Milk of magnesia 30 mL p.o. daily as needed for constipation. 11. Mineral oil plus petroleum white 30 gram jar topical b.i.d. as needed. 12. Mycostatin powder 1 gram topical b.i.d. as needed. 13. Protonix 40 mg p.o. daily. 14. Chloraseptic spray 180 mL bottle 1 spray p.o. as needed for sore throat. 15. 250 mg capsules p.o. daily. 16. Senokot 2 tabs p.o. at bedtime as needed. 17. [place] nasal spray 0.65% each naris as needed. 18. Urospasm 100 mg p.o. t.i.d. 19. Solu-Medrol 20 mg IV push q.12 hours. 20. Aspirin 325 mg p.o. daily. 21. Vitamin B12 of 5000 mcg p.o. daily. 22. Colace 50 mg p.o. daily. 23. Atrovent 2.5 mL nebulizer q.4 hours as needed. DISCONTINUED MEDICATIONS: None. HISTORY OF PRESENT ILLNESS AND HOSPITAL COURSE: The patient is a 61-year-old female who was initial ly admitted to the hospital on 06/25/2017 secondary to concern for right lower lobe pneumonia with r espiratory failure secondary to this. Patient reportedly with oxygen desaturation down trending and 87% little exertion dropping to 60%. Patient reportedly had an increase need of suction as well th rough tracheostomy and subjective fevers at home. On 06/21/2017, the patient had a urinalysis and c ulture performed at her primary care physician showing resistant Klebsiella urinary tract infection, sensitive to meropenem. Chest x-ray obtained in the ER showed opacity in the lingula and right mid dle lobe concerning for possible pneumonia. She was admitted into the ICU for close monitoring and placed on vancomycin, Zosyn and meropenem to treat for her assumed pneumonia as well as urinary trac t infection. The patient with initial white count of 9.2, which remained in normal range throughout her entire hospital stay and the patient remained afebrile throughout her entire hospital course [facility] no significant increase in her white blood cell count. On 06/26/2017, a code blue was called sec ondary to patient had an episode of hypoxia. The patient was subsequently placed on mechanical vent ilation through tracheostomy site. Upon further evaluation by Pulmonology, it was felt that patient did not have pneumonia and that episode was likely secondary to mucus plugging. The patient was lake ccessfully extubated and taken off mechanical ventilation on 06/27/2017 and care was transitioned ov er to [facility] from the hospital services at this time. The patient was subsequently transferred to telemetry as she was doing well from a cardiopulmonary standpoint [facility] plans for transferring to a [facility]p facility. However, on 06/29/2017, the patient was tr ansferred back to the [facility] secondary to issue with nursing ratio. Upon arrival to the [facility], patient with severe anxiety attack where patient had oxygen saturations again falling down below 80%, requi ring to be placed back on spontaneous breathing with mechanical ventilation at this time through tra cheostomy. The patient was started on IV Solu-Medrol at this time and was successfully weaned from the vent later on that day. The patient was started on initially BuSpar; however, after patient meli en off mechanical ventilation, it was discovered that patient had been on this medication in the pas t with minimal relief. This was again subsequently transitioned over to Lexapro which she has been doing moderately well with this; however, still endorsing fairly severe anxiety. Upon further evalu ation by Pulmonology and critical care, these hypoxic episodes were felt to be secondary to patient' s severe anxiety with panic attacks that causing her to have these hypoxic episodes. The patient's sister was contacted and it was discussed that sister would like to have patient transferred to [facility], closer to home as she has done well at this hospital in the past with Dr. Main of [facility] in [facility]. At this time, transfer center was contacted and transfer was initiated. On 07/05/2017, patient was accepted for transfer. The patient is stable at time of discharge and stabl e for transfer to subsequent inpatient facility. Patient on her home O2 requirement at time of berman sfer, in no acute distress. DISPOSITION: Guarded. DISCHARGE LOCATION: [facility]. ACTIVITY: Cardiopulmonary limits. FOLLOWUP: Follow up with primary care provider upon discharge from the hospital in 7-10 days.
--- OUTSIDE RECORDS SUMMARY | 2017-07-08 05:35 | XMS | Clinical Summary ---
:1955 [facility] [address] [place] [address] Phone Care Team Providers Name Role Phone , Primary Care Provider Unavailable Allergies Not on File Current Medications Not on file Active Problems Not on file Social History Tobacco Use Types Packs/Day Years Used Date Never Assessed Sex Assigned at Date Recorded Not on file Last Filed Vital Signs Not on file Plan of Treatment Not on file Results Not on filefrom Last 3 Months
== END 2017-07-05 15:58 | disposition short-term general hospital (02) | DRG 208 ==
LOC: ERS 09:23 → T4-A 11:34 → CCU 13:40 → 2NO 06-28 11:39 → IMCU/EMU 06-29 14:09 → CCU 06-29 17:00
PROVIDERS: ADMIT Internal Medicine; ATTEND Internal Medicine
PROC: 0B21XFZ Change Tracheostomy Device in Trachea, External Approach (ICD-10-PCS; principal; 2017-06-26)
PROC: 5A1935Z Respiratory Ventilation, Less than 24 Consecutive Hours (ICD-10-PCS; 2017-06-26)
PROC: 5A1935Z Respiratory Ventilation, Less than 24 Consecutive Hours (ICD-10-PCS; 2017-06-29)
DX: J96.21 Acute and chronic respiratory failure with hypoxia (principal); N17.9 Acute kidney failure, unspecified; I95.9 Hypotension, unspecified; Z43.0 Encounter for attention to tracheostomy; J44.9 Chronic obstructive pulmonary disease, unspecified; E09.9 Drug or chemical induced diabetes mellitus without complications; E66.2 Morbid (severe) obesity with alveolar hypoventilation; N39.0 Urinary tract infection, site not specified; J98.11 Atelectasis; Z68.44 Body mass index [BMI] 60.0-69.9, adult; K21.9 Gastro-esophageal reflux disease without esophagitis; J96.22 Acute and chronic respiratory failure with hypercapnia; F41.0 Panic disorder [episodic paroxysmal anxiety]; F32.9 Major depressive disorder, single episode, unspecified; G47.33 Obstructive sleep apnea (adult) (pediatric); B96.1 Klebsiella pneumoniae [K. pneumoniae] as the cause of diseases classified elsewhere; R07.89 Other chest pain; Z79.84 Long term (current) use of oral hypoglycemic drugs; T38.0X5A Adverse effect of glucocorticoids and synthetic analogues, initial encounter; Z88.2 Allergy status to sulfonamides; Z88.8 Allergy status to other drugs, medicaments and biological substances; Z88.1 Allergy status to other antibiotic agents; Z91.013 Allergy to seafood
CPT/HCPCS: 36415; 36416; 51702; 71010; 80048; 80053; 80170; 81003; 81015; 82550; 82553; 82805; 83605; 84484; 85007; 85025; 85027; 87040; 87086; 92950; 93005; 94002; 94003; 94640; 96365; 96366; A4216; C1713; G8981-GP-CN; G8982-GP-CL; J1200; J1580; J1650; J1940; J2060; J2250; J2270; J2405; J2543; J2704; J2920; J3370; J7050; J7608; J7620

== ENCOUNTER 2017-08-17 15:23 | Inpatient (IN) | payer MEDICARE, MEDICAID ==
[2017-08-17] MEDS ORDERED: Nystatin Powder 15 GM BOT TOP PRN (16:18)
[2017-08-17] MEDS ORDERED: Acetaminophen 325 MG TAB PO PRN (16:18)
[2017-08-17 16:58] VITALS: BMI 53.9
[2017-08-17] MEDS ORDERED: ALPRAZolam 0.5 MG TAB PO PRN (16:59)
[2017-08-17 17:35] LABS: #Eosinphils 0.2 thou/uL (0.0-0.7); #Lymphocytes 1.5 thou/uL (1.20-3.40); #Monocytes 0.5 thou/uL (0.11-0.59); #Neutrophils 5.7 thou/uL (1.40-6.50); %Basophils 0.1 % (0.0-1.0); %Eosinophils 2.5 % (0.0-10.0); %Monocytes 6.2 % (0.0-10.0); Hematocrit 35.1 % (36.0-47.0); Mean Platelet Volume 9.8 fL (7.4-10.4); White Blood Cell (WBC) Count 7.9 thou/uL (4.8-10.8)
[2017-08-17 18:11] LABS: ALT (SGPT) 13 U/L (8-55); AST (SGOT) 13 U/L (5-34); Alkaline Phosphatase 70 U/L (40-150); Anion Gap 12 mmol/L (10-20); BUN (Urea Nitrogen) 28 mg/dL (9.8-20.1); Bilirubin, Total 0.3 mg/dL (0.2-1.2); Calc. Creatinine Clearance 104 mL/min (70-130); Carbon Dioxide 32 mmol/L (22-29); Chloride 98 mmol/L (98-107); Estimated GFR-MDRD 53; Globulin 3.8 g/dL (2.4-3.5); Protein, Total 7.2 g/dL (6.0-8.3)
[2017-08-17 19:01] LABS: Bilirubin Negative (Negative); Blood, Urine Trace (Negative); Glucose, Urine (Dipstick) Negative (Negative); Ketone, Urine Negative (Negative); Nitrite Positive (Negative); Protein, Urine (Dipstick) Negative (Neg-Trace); Urobilinogen 0.2 mg/dL (0.2-1.0)
[2017-08-17 19:07] LABS: Bacteria/HPF 4+ HPF (None Seen); Hyaline Casts/LPF 0-3 HYALINE CAST LPF (0-3 Hyaline); Squamous Epithelial None Seen HPF (0-3)
[2017-08-17] MEDS: Famotidine 20 MG TAB PO SCH (20:15)
[2017-08-17] MEDS ORDERED: Acetaminophen 650 MG in Premix Bag 1 BAG IVPB SCH (21:00)
--- NOTE | 2017-08-17 21:03 | RAD ---
CHEST ONE VIEW 08/17/17 HISTORY: Chest tightness. Pneumonia. COMPARISON: Chest two view 06/28/17. FINDINGS: The tracheostomy tube is present with tip at the tip above the sumanth approximately 3.5 cm. The cardi ac silhouette and mediastinal contours are within normal limits. There is some scarring in the lower lobes. There is prominence of the pulmonary vasculature. Severe degenerative changes of both shoulder joints. IMPRESSION: No significant change of the radiographic appearance of the chest. POS: TRISHA
[2017-08-17] MEDS: Lorazepam 2 MG/ML VIAL SLOW IVP PRN (21:34)
--- NOTE | 2017-08-18 06:11 | HP-2 ---
CODE STATUS: FULL PRIMARY CARE PHYSICIAN: Dr. Jasmin Ivey. ATTENDING: Dr. Taurus Edmonds. RESIDENT: Barbara Garnica DO HISTORIAN: Patient. CHIEF COMPLAINT: Urinary tract infection transfer from Dr. Ivey. HISTORY OF PRESENT ILLNESS: The patient is a 61-year-old female with past medical history of recurre nt UTIs and recent admission for pneumonia in 06/2017. The patient has history of chronic respirator y failure and hypoventilation syndrome due to morbid obesity with trach in place since 2014. Most re cent admission had a UTI with Klebsiella resistant. She is a direct admit from Dr. Ivey, who sees her in clinic. She ordered an x-ray, CBC, CMP, blood, and urine cultures. After the patient report ed not feeling well with generalized weakness 1 week ago. She was called today and told to go to the hospital for UTI resistant Klebsiella. The patient also reports increased sputum production that is green and chest tightness with mild shortness of breath. PAST MEDICAL HISTORY: 1. Anxiety. 2. Panic attacks. 3. Gastroesophageal reflux disease. 4. Chronic hypoxic hypercapnic respiratory failure on home oxygen 5-6 liters. 5. Low back pain. 6. Morbid obesity. 7. Obstructive sleep apnea. 8. Chronic physical deconditioning. PAST SURGICAL HISTORY: 1. Tracheostomy in 2014. 2. Bilateral tubal ligation. 3. Cholecystectomy. 4. . 5. Hernia repair. 6. Bilateral mastectomy. ALLERGIES: 1. FLU VACCINE. 2. LEVAQUIN. 3. IODINE. 4. SHELLFISH. 5. NALBUPHINE. 6. SULFA. 7. PEAS 8. LATEX. MEDICATIONS: Patient does not have an updated medication list with her, but from the last discharge is taking Xanax 0.5 mg p.o. b.i.d. p.r.n., Lexapro 10 mg p.o. daily, [place] 5/325 mg p.o. q.4 hours fo r pain, DuoNeb 3 mL nebulized treatments q.4 hours p.r.n., Claritin 10 mg p.o. daily, 100 mg p. o. t.i.d., Atrovent 2.5 mL q.4 hours, and aspirin 325 mg. FAMILY HISTORY: Mother with hypertension, father with prostate cancer and hypertension, and son with asthma. 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 Lives at home and has 24-hour care with home health and the son who lives with her. At baseline is predominantly bedbound with the exception of transferring to bedside commode for bowel movement with two persons help. REVIEW OF SYSTEMS: General: Denies fever, weight changes. Does report decreased appetite. No nigh t sweats. Eyes: Denies vision changes or eye pain. ENT: Denies nasal congestion, rhinorrhea, or s ore throat. Respiratory: Admits to a cough, congestion, and shortness of breath. Cardiovascular: Denies chest pain, palpitations, edema, or orthopnea. Gastrointestinal: Admits to nausea, no vomiti ng, diarrhea, constipation, or abdominal pain. Genitourinary: Denies incontinence, dysuria, polyuri a, or discharge. Skin: No rashes. Musculoskeletal: Reports chronic back pain, mild increased from baseline. Neuro: Reports generalized weakness. No specific weakness. Denies syncope or seizure. Psych: Reports severe anxiety. PHYSICAL EXAMINATION: VITAL SIGNS: Blood pressure 118/79, pulse 89, respiratory rate 18, T-max 98.1, pulse ox 94% on 8 lit ers. Current weight 394.45 pounds. GENERAL: Alert and oriented x4, no acute distress, morbidly obese, appropriately interactive. EYES: Conjunctivae within normal limits. EOMI. ENT: Oropharynx within normal limits. Trach is clean, dry, and intact. No sputum production at thi s time. NECK: Without lymphadenopathy. Again, trach collar in place. CARDIOVASCULAR: Regular rate and rhythm with a systolic murmur. RESPIRATORY: Normal effort, no retractions. Clear to auscultation bilaterally, but it is hard to ev aluate due to body habitus. SKIN: Warm and dry. ABDOMEN: Soft, nontender with bowel sounds present in all 4 quadrants. No CVA tenderness. EXTREMITIES: No clubbing, cyanosis, or edema. MUSCULOSKELETAL: Structure within normal limits, tone within normal limits. NEUROLOGIC: No focal deficits. PSYCHIATRIC: Appropriate. LABORATORY DATA: Labs were drawn in one week ago and CBC without elevated white count and a BMP with elevated CO2 due to baseline. ASSESSMENT AND PLAN: This is a 61-year-old female with, 1. Recurrent Klebsiella urinary tract infection. The patient has been generally asymptomatic from t he standpoint of urinary tract infection, but has vague symptoms along with history of poor health. Will repeat UA and a urine culture, start gentamicin. Blood cultures and replace the Taylor. The pat iejune does not clinically appear ill and no evidence of sepsis. We will consult Infectious Disease du e to the recurrence. 2. Chronic hypoxic hypercapnic respiratory failure. Patient is on O2 via trach at baseline and 5-6 liters now initially requiring 8 liters here. I will obtain a chest x-ray to evaluate recently repor puma chest congestion and shortness of breath. We will give DuoNebs q.4 hours p.r.n. as directed to h ome as well as provide tracheostomy care. 3. Severe anxiety. We will continue Xanax p.r.n. 4. Chronic back pain. We will continue home [place]. 5. Obstructive sleep apnea. We will place on BiPAP overnight. Disposition and length of hospital stay 1-2 days. Symptomatic medications will be provided. History and physical exam as well as management were discussed with Dr. Taurus Edmonds.
[2017-08-18] MEDS: Famotidine 20 MG TAB PO SCH ×2 (10:18→20:28)
[2017-08-18] MEDS: diphenhydrAMINE 25 MG CAP PO PRN ×2 (10:18→20:30)
[2017-08-18] MEDS: Enoxaparin Sodium 40 MG/0.4 ML SYRINGE SC SCH (10:19)
[2017-08-18] MEDS ORDERED: Furosemide 40 MG TAB PO SCH (12:45)
--- NOTE | 2017-08-18 13:28 | ADD-PRG ---
ADDENDUM: 08/18/[address] note of Dr. Barbara Garnica. Ms. Mayorga is a very obese 61-year-old black female with a history of hypoventilation syndrome se condary to obesity and GLORIA. She began to feel weak yesterday. Her PCP ordered several test that rev ealed the possibility of urinary tract infection with a very resistant Klebsiella organism. She has been admitted for IV treatment. She denies any dysuria, suprapubic pain or fever. She is resting co mfortably and is in no distress. We will continue with intravenous gentamicin, which at this point i s the only medication to which this organism is sensitive.
--- NOTE | 2017-08-18 14:05 | CON ---
DATE OF CONSULTATION: 08/18/2017 REASON FOR CONSULTATION: Urinary tract infection. HISTORY OF PRESENT ILLNESS: A 61-year-old patient who has a history of obesity with hypoventilation syndrome and tracheostomy, who has had multiple admissions to this hospital in the past. Last one wa s 06/25/2017 when she presented with lower respiratory tract infection. The patient was treated with broad spectrum coverage. Cultures from the urine revealed highly resistant Klebsiella species organ ism, although in the note from the discharge summary, it is stated that it was sensitive to meropenem when one reviews the susceptibility profile for the organism. It was actually not sensitive to any of the beta lactams and only susceptible to aminoglycosides. The patient was discharged off antimicr obial therapy and she was seen by her primary care physician recently and apparently has developed so me what she describes as spasms in the vaginal area, which she feels the need to void and everytime s he avoids she feels this painful sensation and after the results of the cultures, she was referred fo r admission. A Taylor catheter had been inserted about a week ago by her PCP after initiation of Lasi x. No fever or chills, no back pain, no abdominal pain, no vomiting, hematemesis, melena or hematoch ezia. No respiratory symptoms change. She has difficulty with ambulation because of her obesity and osteoarthritis and that is unchanged. She is able to walk a few steps with some assistance. PAST MEDICAL HISTORY: Obesity, COPD with hypoventilation syndrome, tracheostomy, osteoarthrosis. PAST SURGICAL HISTORY: Tracheostomy, tubal ligation, cholecystectomy and hernia repair. Also, she h as had urinary tract infections in the past with frequent treatments; some of those probably did not merit the treatment. ALLERGIES: INFLUENZA VACCINE, LEVAQUIN, IODINE, NALBUPHINE, SULFA DRUGS, LATEX. CURRENT MEDICATION: List includes Tylenol, DuoNeb, Benadryl, Lovenox, Pepcid, Lasix, and gentamicin. FAMILY HISTORY: Hypertension and prostate cancer. SOCIAL HISTORY: Never a smoker. Lives at home with 24-hour care. PHYSICAL EXAMINATION: VITAL SIGNS: T-max 98.3, blood pressure 115/69, pulse 97, respirations 20-22, O2 sat 90%-98%. GENERAL: Appears in no distress, pleasant. Patient has peripheral IV access and a Taylor catheter in place. Urine is clear but has some sediment noticeable. HEENT: Ocular movements are conjugate. Sclerae white. Pupils are equal. Oral cavity normal. NECK: Supple. LUNGS: With symmetric air entry. Tracheostomy exit site appears normal. HEART: S1, S2, regular rate. No S3 or S4. ABDOMEN: Soft, very prominent panniculus. No ascites. No tenderness. No organomegaly. She is abl e to move extremities equally. NEUROLOGIC: Cognitive function appears to be intact. LABORATORY DATA: Urinalysis with greater than 50 WBCs, this is from 08/17/2017. Previous urinalysis is from 07/23/2017 with greater than 50 WBCs, and on 07/21/2017, also greater than 50 WBCs. White c ell count 7.9, hemoglobin 10.7, platelets 271, creatinine 1.25 with baseline creatinine at 0.85. ASSESSMENT: 1. Morbid obesity with tracheostomy and hypoventilation syndrome. 2. Frequent treatments for findings in urine cultures. 3. Urinary Taylor catheterization for the past few days with associated bladder spasms which initiate d before the Taylor catheterization have resolved since discussion pyuria. 4. Highly resistant Klebsiella species and urine cultures. DISCUSSION: The clinical evidence is suggestive of cystitis/urethritis with a highly resistant gram negative vipin. I would continue gentamicin and give once a day treatment for not more than 3 days and discontinue it, remove Taylor catheter and then follow up the clinical symptoms. In the future, I wo uld try to avoid treating the urine findings in the absence of symptoms, although right now she does have legitimate symptoms that would justify treatment for cystitis which is usually short course peggy tment rather than the longer courses required for pyelonephritis or more invasive processes.
--- NOTE | 2017-08-18 15:24 | PQF ---
VIKRAM AZEVEDO RAMIRO Del Valleelizabeth [id number] -B- [id number] CLINICAL DOCUMENTATION IMPROVEMENT CLARIFICATION FORM: ICD-10 Updated PLEASE DO AN ADDENDUM TO THE PROGRESS NOTE WITH ANY DOCUMENTATION UPDATES OR ADDITIONS AND CARRY THROUGH TO DC SUMMARY. THANK YOU. DATE: 08-18-17 ATTN: DR. RAMIRO RAMOS / DR. KARTHIKEYAN QUIÑONES Please exercise your independent, professional judgment in responding to the clarification form. Clinical indicators are provided on the bottom of this form for your review Please check appropriate box(s): [ ] UTI please specify if due to or related to (as applicable): [ ] Indwelling catheter [ x ] Unable to determine etiology UTI Site: [ ] Kidney [ ] Ureter [ ] Bladder [ ] Urethra [ x ] Unable to determine [ ] Contaminated urine specimen without UTI [ ] Other diagnosis [ ] Unable to determine In addition, please specify: Present on Admission (POA): [ x ] Yes [ ] No [ ] Unable to determine For continuity of documentation, please document condition throughout progress notes and discharge summary. Thank You. CLINICAL INDICATORS - SIGNS / SYMPTOMS / LABS H&P: RECURRENT UTI'S DIRECT ADMIT FROM PHYSICIAN'S OFFICE FOR POSITIVE UA 08-17 UA - LARGE LEUKOCYTES; 4+ BACTERIA RISK FACTORS H&P: PREDOMINANTLY BEDBOUND RECURRENT UTI'S ID CONSULT: OAKES CATHETER IN PLACE URINARY OAKES CATHETERIZATION FOR THE PAST FEW DAYS W/ ASSOCIATED BLADDER SPASMS TREATMENT: H&P: REPEAT UA AND CULTURE CONSULT ID REPLACE OAKES MAR: IV ABX - OFIRMEV 08-17 GENTAMICIN ORDERED 08-17 THANK YOU, RHONA (This form is maintained as a part of the permanent medical record) 2014 [employer]. All Rights Reserved Rhona Hunt RN, BS [email or web address] [facility]
[2017-08-18] MEDS: Lorazepam 2 MG/ML VIAL SLOW IVP PRN ×2 (15:26→22:59)
--- NOTE | 2017-08-18 15:40 | PDOC.FM ---
- Subjective Subjective: Patient is doing well this morning although she does report dysuria or "bladder spasm" when she feels she needs to void this morning. Patient did not report this yesterday on admission. Patient has hx of "bladder spasms." Otherwise reports her chest tightness is still there and relates this to increased volume in her lungs. No acute events overnight. - Objective MAR Reviewed: Yes Vital Signs & Weight: Vital Signs (12 hours) Temp Pulse Resp BP Pulse Ox 08/18/17 14:41 97 22 H 93 L 08/18/17 11:44 98.5 F 97 20 115/69 92 L 08/18/17 10:37 84 20 08/18/17 08:00 98.5 F 97 20 121/79 98 08/18/17 07:45 83 20 96 08/18/17 06:30 97.5 F L 83 22 H 129/82 96 Weight Admit Weight 138.119 kg Weight 138.119 kg I&O: 08/17/17 08/18/17 08/19/17 06:59 06:59 06:59 Output Total 950 Balance -950 Result Diagrams: 08/17/17 17:23 08/17/17 17:23 Phys Exam - Physical Examination Constitutional: NAD morbid obesity, well appearing HEENT: moist MMs trach in place with no abnormalities Respiratory: no wheezing, no rales, clear to auscultation bilateral Cardiovascular: RRR, no significant murmur Gastrointestinal: soft, non-tender, positive bowel sounds Musculoskeletal: no edema Neurological: moves all 4 limbs Psychiatric: A&O x 3 Skin: cap refill <2 seconds Dx/Plan (1) UTI (urinary tract infection) Status: Suspected Qualifiers: Urinary tract infection type: acute cystitis (2) Chronic respiratory failure with hypoxia and hypercapnia Code(s): J96.11 - CHRONIC RESPIRATORY FAILURE WITH HYPOXIA; J96.12 - CHRONIC RESPIRATORY FAILURE WITH HYPERCAPNIA Status: Acute (3) Acute kidney injury Code(s): N17.9 - ACUTE KIDNEY FAILURE, UNSPECIFIED Status: Acute (4) Bladder spasm Status: Acute (5) Anxiety Code(s): F41.9 - ANXIETY DISORDER, UNSPECIFIED Status: Chronic (6) Morbid obesity Code(s): E66.01 - MORBID (SEVERE) OBESITY DUE TO EXCESS CALORIES Status: Chronic (7) GLORIA (obstructive sleep apnea) Code(s): G47.33 - OBSTRUCTIVE SLEEP APNEA (ADULT) (PEDIATRIC) Status: Chronic (8) Obesity hypoventilation syndrome Code(s): E66.2 - MORBID (SEVERE) OBESITY WITH ALVEOLAR HYPOVENTILATION Status : Chronic - Plan Plan: Klebsiella Resistant UTI with hx of recurrent UTI's - No signs or symptoms of sepsis, but blood cx pending, WBC wnl - Gentamycin 430mg q36h - Will consult urology for recurrent UTIs - ID consult for appropriate medication management, appreciate recs Chronic Hypoxic Hypercapnic Respiratory Failure 2/2 Obesity Hypoventilation Syndrome s/p Tracheostomy placement (2104) - Trach in place - Trach care and suction at bedside - Duonebs q4h - CXR wnl ABDI - Patient reports feeling fluid overloaded although no physical exam findings of fluid overload. - Patient refusing IVF, will encourage PO intake Chronic Anemia - stable Anxiety - Home meds Panniculitis - Nystatin powder GLORIA - on Bipap at night GERD - home meds Chronic Low Back Pain - Home pain medications
[2017-08-18] MEDS: Ondansetron ODT 4 MG TAB PO PRN (17:05)
--- NOTE | 2017-08-19 06:17 | PDOC.FM ---
- Subjective Subjective: Patient tearful about removing padron catheter. States she does not want to have urine on her because she is on Lasix and cannot get up to use the bathroom. It was discussed in depth the risks of acquiring another UTI and colonization of bacteria with the padron in place and her likelihood of developing another UTI with increased resistance that could ultimately lead to sepsis and even . Patient understood the risks and continued to plead to have the padron in place. She also endorses a pain in the R side of her neck by her tracheostomy. - Objective MAR Reviewed: Yes Vital Signs & Weight: Vital Signs (12 hours) Temp Pulse Resp BP Pulse Ox 08/19/17 02:34 96 16 80 L 08/19/17 01:25 95 08/19/17 00:00 98.2 F 92 18 97/56 L 92 L 08/18/17 22:17 95 18 81 L 08/18/17 20:00 98.6 F 87 20 93/59 L 93 L 08/18/17 18:49 95 20 82 L Weight Admit Weight 138.119 kg Weight 138.119 kg I&O: 08/17/17 08/18/17 08/19/17 06:59 06:59 06:59 Intake Total 500 Output Total 950 1700 Balance -950 -1200 Result Diagrams: 08/19/17 06:42 08/19/17 06:42 Phys Exam - Physical Examination Constitutional: NAD HEENT: moist MMs + post nasal drip, anterior cervical lymphadenopathy Neck: no JVD, supple, full ROM tracheostomy in place, C, D, I Respiratory: no wheezing, no rales, clear to auscultation bilateral Cardiovascular: RRR, no significant murmur Gastrointestinal: soft, non-tender, no distention, positive bowel sounds Musculoskeletal: no edema Neurological: moves all 4 limbs Psychiatric: normal affect, A&O x 3 Skin: no rash Dx/Plan (1) UTI (urinary tract infection) Status: Suspected Qualifiers: Urinary tract infection type: acute cystitis (2) Chronic respiratory failure with hypoxia and hypercapnia Code(s): J96.11 - CHRONIC RESPIRATORY FAILURE WITH HYPOXIA; J96.12 - CHRONIC RESPIRATORY FAILURE WITH HYPERCAPNIA Status: Acute (3) Acute kidney injury Code(s): N17.9 - ACUTE KIDNEY FAILURE, UNSPECIFIED Status: Acute (4) Bladder spasm Status: Acute (5) Anxiety Code(s): F41.9 - ANXIETY DISORDER, UNSPECIFIED Status: Chronic (6) Morbid obesity Code(s): E66.01 - MORBID (SEVERE) OBESITY DUE TO EXCESS CALORIES Status: Chronic (7) GLORIA (obstructive sleep apnea) Code(s): G47.33 - OBSTRUCTIVE SLEEP APNEA (ADULT) (PEDIATRIC) Status: Chronic (8) Obesity hypoventilation syndrome Code(s): E66.2 - MORBID (SEVERE) OBESITY WITH ALVEOLAR HYPOVENTILATION Status : Chronic (9) Hypotension Status: Acute - Plan Plan: Klebsiella Resistant UTI with hx of recurrent UTI's - No signs or symptoms of sepsis, but blood cx pending, WBC wnl - Gentamycin changed to 200mg q24h dosing x 3 days - Will consult urology for recurrent UTIs - ID consult for appropriate medication management, appreciate recs Chronic Hypoxic Hypercapnic Respiratory Failure 2/2 Obesity Hypoventilation Syndrome s/p Tracheostomy placement (2104) - Trach in place - Trach care and suction at bedside - Duonebs q4h - CXR wnl - Desaturation overnight, asymptomatic, normal for patient ABDI - Patient reports feeling fluid overloaded although no physical exam findings of fluid overload. - Patient refusing IVF, will encourage PO intake Hypotension - mild, encourage PO intake and monitor Chronic Anemia - stable Anxiety - Home meds Panniculitis - Nystatin powder GLORIA - on Bipap at night - desaturated overnight on 5L O2, RT GERD - home meds Chronic Low Back Pain - Home pain medications Neck Pain - lymphadenopathy in the area of complaint with + post nasal drip, likely the cause - will continue to monitor for signs/symptoms of infection.
[2017-08-19] MEDS: Sodium Chloride 0.9% 1,000 ML IV SCH ×2 (06:58→17:39)
[2017-08-19 07:15] LABS: Anion Gap 13 mmol/L (10-20); BUN (Urea Nitrogen) 21 mg/dL (9.8-20.1); Calc. Creatinine Clearance 127 mL/min (70-130); Calcium 8.8 mg/dL (7.8-10.44); Carbon Dioxide 32 mmol/L (22-29); Chloride 100 mmol/L (98-107); Estimated GFR-MDRD 66
[2017-08-19] MEDS ORDERED: Furosemide 40 MG TAB PO SCH (07:30)
[2017-08-19 07:40] LABS: #Eosinphils 0.2 thou/uL (0.0-0.7); #Lymphocytes 1.6 thou/uL (1.20-3.40); #Monocytes 0.6 thou/uL (0.11-0.59); #Neutrophils 3.3 thou/uL (1.40-6.50); %Basophils 0.5 % (0.0-1.0); %Eosinophils 3.4 % (0.0-10.0); %Lymphocytes 28.3 % (21.0-51.0); %Monocytes 9.7 % (0.0-10.0); Hematocrit 35.9 % (36.0-47.0); Hypochromia SLIGHT = 6-15 cells (100X) (0-5/hpf); Mean Platelet Volume 10.2 fL (7.4-10.4); Microcytosis SLIGHT = 6-15 cells (100X) (0-5/hpf); Red Blood Cell (RBC) Count 4.65 mill/uL (4.20-5.40); Stomatocytes SLIGHT = 2-5 cells (100X) (0-1/hpf); White Blood Cell (WBC) Count 5.7 thou/uL (4.8-10.8)
[2017-08-19] MEDS: Famotidine 20 MG TAB PO SCH ×2 (08:50→22:07)
[2017-08-19] MEDS: Enoxaparin Sodium 40 MG/0.4 ML SYRINGE SC SCH (08:50)
[2017-08-19] MEDS: Lorazepam 2 MG/ML VIAL SLOW IVP PRN ×3 (10:57→23:44)
[2017-08-19] MEDS ORDERED: hydrOXYzine 25 MG TAB PO PRN (12:59)
[2017-08-19] MEDS ORDERED: Loperamide HCl 2 MG CAP PO PRN (12:59)
[2017-08-19] MEDS ORDERED: Loratadine 10 MG TAB PO PRN (12:59)
--- NOTE | 2017-08-19 15:05 | ADD-PRG ---
DATE OF SERVICE: 08/19/2017 This is an addendum to the note of Dr. Barbara Garnica. Ms. Mayorga is awake and alert this morning with normal vital signs. She is afebrile. She is wayne ng somewhat recalcitrant and refusing the removal of Taylor catheter. I am still skeptical about her diagnosis of UTI, but we did have Dr. Kennedy also evaluate the patient. He recommended 3 days only of gentamicin with subsequent discontinuation of this medication and discharge home. We also explained to Ms. Mayorga the necessity of removing her Taylor catheter to prevent further UTI, given that we are down to only 1-2 antibiotics with which we can treat her. She still refuses removal.
[2017-08-19] MEDS: HYDROcodone/Acetaminophen 10/325 mg Tablet PO PRN (17:43)
[2017-08-19] MEDS: diphenhydrAMINE 25 MG CAP PO PRN (23:43)
[2017-08-20] MEDS: Sodium Chloride 0.9% 1,000 ML IV SCH (02:48)
[2017-08-20] MEDS ORDERED: Furosemide 20 MG TAB PO SCH (08:00)
--- NOTE | 2017-08-20 08:05 | PDOC.FM ---
- Subjective Subjective: Patient reports she is SOB this morning. She reports mild pain when she urinates. DELORIS overnight. - Objective MAR Reviewed: Yes Vital Signs & Weight: Vital Signs (12 hours) Pulse Resp Pulse Ox 08/20/17 07:07 89 16 95 08/20/17 02:33 94 16 94 L 08/19/17 22:38 82 16 95 Weight Admit Weight 138.119 kg Weight 138.119 kg I&O: 08/19/17 08/20/17 08/21/17 06:59 06:59 06:59 Intake Total 500 3814 Output Total 1700 4100 Balance -1200 -286 Result Diagrams: 08/19/17 06:42 08/19/17 06:42 Phys Exam - Physical Examination responding to questions appropriately, does not open eyes all the way HEENT: moist MMs Neck: no JVD Respiratory: no wheezing, no rales, no rhonchi mildly decreased breath sounds bilaterally Cardiovascular: RRR systolic murmur Gastrointestinal: soft, non-tender, no distention, positive bowel sounds Musculoskeletal: no edema, pulses present Neurological: moves all 4 limbs Psychiatric: A&O x 3 Skin: no rash, cap refill <2 seconds Dx/Plan (1) UTI (urinary tract infection) Status: Suspected Qualifiers: Urinary tract infection type: acute cystitis (2) Chronic respiratory failure with hypoxia and hypercapnia Code(s): J96.11 - CHRONIC RESPIRATORY FAILURE WITH HYPOXIA; J96.12 - CHRONIC RESPIRATORY FAILURE WITH HYPERCAPNIA Status: Acute (3) Acute kidney injury Code(s): N17.9 - ACUTE KIDNEY FAILURE, UNSPECIFIED Status: Acute (4) Bladder spasm Status: Acute (5) Anxiety Code(s): F41.9 - ANXIETY DISORDER, UNSPECIFIED Status: Chronic (6) Morbid obesity Code(s): E66.01 - MORBID (SEVERE) OBESITY DUE TO EXCESS CALORIES Status: Chronic (7) GLORIA (obstructive sleep apnea) Code(s): G47.33 - OBSTRUCTIVE SLEEP APNEA (ADULT) (PEDIATRIC) Status: Chronic (8) Obesity hypoventilation syndrome Code(s): E66.2 - MORBID (SEVERE) OBESITY WITH ALVEOLAR HYPOVENTILATION Status : Chronic (9) Hypotension Status: Resolved - Plan Plan: Klebsiella Resistant UTI with hx of recurrent UTI's - No signs or symptoms of sepsis, blood cx grew likely contaminant MRSE, WBC wnl - Gentamycin changed to 200mg q24h dosing day 3 of 3 per ID recs Chronic Hypoxic Hypercapnic Respiratory Failure 2/2 Obesity Hypoventilation Syndrome s/p Tracheostomy placement (2104) - Trach in place - Trach care and suction at bedside - Duonebs q4h - CXR wnl - Reports SOB, O2 sat 97-98% on 5L (at baseline) with lung sounds mildly decreased and poor UOP overnight will give IV Lasix instead of PO ABDI - resolved Hypotension - resolved Chronic Anemia - stable Anxiety - Home meds Panniculitis - Nystatin powder GLORIA - on Bipap at night - desaturated overnight on 5L O2, RT GERD - home meds Chronic Low Back Pain - Home pain medications
[2017-08-20] MEDS ORDERED: Furosemide 40 MG/4 ML VIAL SLOW IVP SCH (08:30)
[2017-08-20] MEDS ORDERED: Furosemide 20 MG/2 ML VIAL SLOW IVP SCH (08:30)
[2017-08-20] MEDS: Enoxaparin Sodium 40 MG/0.4 ML SYRINGE SC SCH (08:33)
[2017-08-20] MEDS: Famotidine 20 MG TAB PO SCH (08:34)
[2017-08-20] MEDS: HYDROcodone/Acetaminophen 10/325 mg Tablet PO PRN (08:35)
[2017-08-20 08:55] VITALS: BP 105/67; TEMP 98.2
[2017-08-20] MEDS ORDERED: Escitalopram Oxalate 10 mg Tablet PO SCH (09:00)
[2017-08-20] MEDS: Ondansetron ODT 4 MG TAB PO PRN (09:22)
--- NOTE | 2017-08-20 14:42 | ADD-PRG ---
DATE OF SERVICE: 08/20/2017 Please add it as an addendum to the note of Dr. Barbara Garnica. Ms. Mayorga is back at her baseline. She is having no respiratory distress or dysuria. She has r eceived a 3-day course of intravenous gentamicin and is ready for discharge.
--- NOTE | 2017-08-23 11:29 | DIS-2 ---
DATE OF ADMISSION: 08/17/2017 DATE OF DISCHARGE: 08/20/2017 RESIDENT: Barbara Garnica D.O. DISCHARGE ATTENDING: Dr. Toño De La O CONSULTATIONS: Infectious Disease, Dr. Live Kennedy. INPATIENT PROCEDURES/OPERATIONS: 1. Chest x-ray. 2. Tracheostomy tube in place with scarring in the lower lobes and prominent pulmonary vasculature, stable from prior chest x-ray. PRIMARY DIAGNOSES: 1. Urinary tract infection with highly resistant Klebsiella species. SECONDARY DIAGNOSES: 1. Morbid obesity with tracheostomy in place. 2. Obstructive sleep apnea. 3. Obesity hypoventilation syndrome. 4. Chronic anemia. 5. Anxiety. 6. Gastroesophageal reflux disease. 7. Chronic low back pain. 8. Panniculitis. 9. Chronic respiratory failure with hypoxia and hypercapnia on 5 liters oxygen at baseline. DISCHARGE MEDICATIONS: 1. Atrovent 2.5 mL inhalation q.4h. p.r.n. 2. B 12/acetaminophen/caffeine 50/325/40 mg 1 tab p.o. daily p.r.n. 3. Artificial Tears p.r.n. 4. Xanax 0.5 mg p.o. b.i.d. p.r.n. 5. Vitamin B12 1000 mcg. 6. Cetirizine 10 mg p.o. at bedtime p.r.n. 7. Florastor 250 mg p.o. daily. 8. Phenergan 25 mg p.o. q.6h. p.r.n. 9. Albuterol sulfate nebs 2.5 mg nebs t.i.d. 10. Triamcinolone acetonide 0.5% cream apply topically t.i.d. 11. Senna 5 mg p.o. b.i.d. p.r.n. 12. MiraLax p.r.n. 13. Lexapro 5 mg p.o. daily. 14. Docusate sodium 50 mg p.o. daily p.r.n. 15. [place] 5/325 mg 1 tab p.o. q.4h. 16. DuoNebs 3 mL q.4h. p.r.n. 17. Claritin 10 mg p.o. daily p.r.n. 18. Potassium chloride 20 mEq p.o. daily. 19. Protonix 40 mg p.o. daily. 20. Ventolin HFA 2 puffs inhalation q.4 hourly. 21. Zofran ODT 2 mg p.o. q.8h. p.r.n. 22. Nystatin powder 1 gram topically b.i.d. 23. Hydroxyzine 25 mg p.o. p.r.n. 24. Urispas 100 mg p.o. p.r.n. daily. 25. Benadryl 25 mg p.o. at bedtime. 26. Ambien 10 mg p.o. at bedtime p.r.n. 27. Solu-Medrol 20 mg p.o. p.r.n. 28. Lasix 40 mg p.o. p.r.n. DISCONTINUED MEDICATIONS: None. HISTORY OF PRESENT ILLNESS AND HOSPITAL COURSE: The patient is a 61-year-old female with a past medical history of recurrent UTIs and recent admission for pneumonia presented to the hospital by direct admission from PCP for Klebsiella resistant UTI. She also has history of chronic respiratory failure and hypoventilation syndrome due to morbid obesity with trach in place since 2014. On her last most recent admission she had a UTI with Klebsiella resistance. Prior to her arrival at the hospital, she was reporting generalized not feeling well, weakness, and increased fatigue. Her PCP, Dr. Ivey, did a UA and urine culture which revealed possible urinary tract infection, with again a resistant Klebsiella bug. She was sent to the hospital to be evaluated for possible IV antibiotics. On day 1 of admission, patient denied any symptoms of UTI, although patient again recognized a generalized weakness and feeling poorly. Although CBC was unimpressive for indications of infection, IV Gentamycin was started and Dr. Kennedy, Infectious Disease, was consulted to help evaluate the patient. He reports that the clinical evidence does suggest cystitis or urethritis and highly resistant gram negative vipin in need of treatment. IV Gentamicin was continued x3 days. Taylor catheter was in place at the time of arrival. Taylor catheter was removed upon discharge. Dr. Kennedy recommends avoiding treating urine findings in the absence of symptoms with the overwhelming Abx resistance that the patient already has. A shortened course of treatment was chosen due to cystitis versus pyelonephritis which would require more invasive process. Symptoms improved after Abx treatment. The patient has multiple other comorbidities which were treated during her stay with home medications. DISPOSITION: The patient was discharged home in stable condition. DISCHARGE INSTRUCTIONS: 1. Location: Home. 2. Diet: Low calorie diet. 3. Activity: As tolerated. 4. Followup: Follow up with PCP, Dr. Jasmin Ivey, in 1-2 weeks. If patient develops symptoms again, will need further IV treatment. The patient also reports she is in need of tracheostomy replacement. We recommend following up with Dr. 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 LIZETT
--- NOTE | 2017-08-23 14:38 | PQF ---
VIKRAM AZEVEDO ROBERT A [id number] [id number] CLINICAL DOCUMENTATION CLARIFICATION FORM: POST DISCHARGE Please clarify if documented "Desaturated" with Chronic Hypoxic Hypercapnic Respiratory Failure 2/2 Obesity Hypoventilation Syndrome s/p tracheostomy placement, can be further specified. H&P; "Patient is on O2 via trach at baseline and 5-6 L now, initially requiring 8L here. PN 08/19 "GLORIA- desaturated overnight on 5L O2, RT. PN 08/19; Vital Signs; '08/19/:34 /Pulse Ox- 80L, Resp-16, Pulse-96' Vital Signs; '08/18/17:17 / Pulse Ox-81L, Resp-18, Pulse- 96.' PN 08/20; "Chronic Respiratory failure with hypoxia and hypercapnia; Status: Acute" "Reports SOB, O2 sat 97-98% on 5L (at baseline) with lung sounds mildly decreased and poor UOP overnight will give IV Lasix instead of PO." Please exercise your independent, professional judgment in responding to the clarification form. Clinical indicators are provided on the bottom of this form for your review. Thank you. Please check appropriate box(s): [ ] Acute Respiratory Failure: [ ] with Hypoxia [ ] with Hypercapnia [ ] Acute On Chronic Respiratory Failure: [ ] with Hypoxia [ ] with Hypercapnia [ ] Acute Respiratory Failure due to: (etiology) [ ] Acute Respiratory Insufficiency following (if applicable): [ ] trauma [ ] surgery [ ] Chronic Respiratory Failure only [ ] with Hypoxia [ ] with Hypercapnia [ ] Hypoxia [ ] Other diagnosis [ ] Unable to determine In addition, please specify: Present on Admission (POA): [ ] Yes [ ] No [ ] Unable to determine CLINICAL INDICATORS - SIGNS / SYMPTOMS / LABS ABG pH < 7.35 or > 7.45 Decreased oxygen saturation (<90% room air or < 95% on oxygen). Cyanosis/Hypoxia PCO2 > 50 mm Hg (PCO2 findings of 10-15 mm Hg above the patient's normal level if patient has COPD) PO2 < 60 mm Hg (PCO2 findings of 10-15 mm Hg below the patient's normal level if patient has COPD) Labored or rapid respirations (use of accessory muscles or inability to speak full sentences, air hunger) Pulmonary vascular congestion CXR RISK FACTORS History of home O2 use Recent surgery Chest trauma COPD exacerbation / Asthma CHF exacerbation Tobacco abuse / exposure Pneumonia CVA AMI TREATMENTS: Oxygen Monitoring of oxygenation status Mechanical ventilation / BiPAP Respiratory treatments Serial CXR ABGs Antibiotics IV Bronchodilators Diuresis Pulmonary Consult ICU/Stepdown (This form is maintained as a part of the permanent medical record) 2014 [employer]. All Rights Reserved [email or web address] [phone] MTDD
== END 2017-08-20 15:14 | disposition home health service (06) | DRG 690 ==
LOC: T4-B 15:23
PROVIDERS: ADMIT Family Medicine; ATTEND Family Medicine
DX: N30.00 Acute cystitis without hematuria (principal); N17.9 Acute kidney failure, unspecified; J96.11 Chronic respiratory failure with hypoxia; I95.9 Hypotension, unspecified; Z93.0 Tracheostomy status; Z99.81 Dependence on supplemental oxygen; E66.2 Morbid (severe) obesity with alveolar hypoventilation; Z68.43 Body mass index [BMI] 50.0-59.9, adult; J96.12 Chronic respiratory failure with hypercapnia; N12 Tubulo-interstitial nephritis, not specified as acute or chronic; J44.9 Chronic obstructive pulmonary disease, unspecified; M19.90 Unspecified osteoarthritis, unspecified site; B96.1 Klebsiella pneumoniae [K. pneumoniae] as the cause of diseases classified elsewhere; Z16.24 Resistance to multiple antibiotics; F41.0 Panic disorder [episodic paroxysmal anxiety]; K21.9 Gastro-esophageal reflux disease without esophagitis; M54.5 Low back pain; N32.89 Other specified disorders of bladder; M79.3 Panniculitis, unspecified; D64.9 Anemia, unspecified; R59.0 Localized enlarged lymph nodes
CPT/HCPCS: 36415; 36416; 71010; 80048; 80053; 80170; 81003; 81015; 85025; 87040; 87086; 87149; 94640; G8978-GP-CM; G8979-GP-CL; G8987-GO-CM; G8988-GO-CM; G8989-GO-CM; J0131; J1580; J1650; J1940; J2060; J7050; J7620; Q0162

== ENCOUNTER 2017-08-30 10:51 | Observation (INO) | payer MEDICARE, MEDICAID ==
[2017-08-30 11:54] LABS: #Eosinphils 0.2 thou/uL (0.0-0.7); #Lymphocytes 1.7 thou/uL (1.20-3.40); #Monocytes 0.4 thou/uL (0.11-0.59); #Neutrophils 4.9 thou/uL (1.40-6.50); %Basophils 0.3 % (0.0-1.0); %Eosinophils 3.3 % (0.0-10.0); %Lymphocytes 23.1 % (21.0-51.0); %Monocytes 5.5 % (0.0-10.0); Hematocrit 37.3 % (36.0-47.0); Mean Platelet Volume 10.2 fL (7.4-10.4); Red Blood Cell (RBC) Count 4.77 mill/uL (4.20-5.40); White Blood Cell (WBC) Count 7.2 thou/uL (4.8-10.8)
--- NOTE | 2017-08-30 12:00 | RAD ---
PORTABLE AP CHEST XRAY: DATE: 08/30/17. HISTORY: Shortness of breath. The patient was diagnosed with UTI 2 days ago. COMPARISON: 08/28/17. FINDINGS: Tracheostomy device remains in place. Cardiac silhouette and bronchovascular markings are accentuate d by shallow depth of inspiration and portable technique. However, there are patchy bibasilar densit ies likely related to atelectasis, but developing areas of pneumonitis could not be entirely excluded . Followup chest x-ray with better depth of inspiration would be helpful. Osseous structures appear intact. No other interval change. IMPRESSION: Patchy parenchymal densities with increased perihilar densities as well. Findings are likely attribu table to the shallow depth of inspiration and portable technique, but followup chest x-ray with jenna r depth of inspiration is recommended to exclude developing areas of pneumonitis. POS: NAYE
[2017-08-30 12:07] LABS: ALT (SGPT) 12 U/L (8-55); AST (SGOT) 11 U/L (5-34); Alkaline Phosphatase 69 U/L (40-150); Anion Gap 9 mmol/L (10-20); BUN (Urea Nitrogen) 24 mg/dL (9.8-20.1); Bilirubin, Total 0.3 mg/dL (0.2-1.2); CK (CPK) 41 U/L (29-168); Calc. Creatinine Clearance 0 mL/min (70-130); Calcium 9.4 mg/dL (7.8-10.44); Carbon Dioxide 35 mmol/L (22-29); Chloride 100 mmol/L (98-107); Estimated GFR-MDRD 53; Protein, Total 7.5 g/dL (6.0-8.3)
[2017-08-30] MEDS ORDERED: Ketorolac Tromethamine 30 MG/ML VIAL ONE (12:17)
[2017-08-30 13:51] LABS: Bilirubin Negative (Negative); Blood, Urine Trace (Negative); Glucose, Urine (Dipstick) Negative (Negative); Ketone, Urine Negative (Negative); Nitrite Negative (Negative); Protein, Urine (Dipstick) Negative (Neg-Trace); Urobilinogen 0.2 mg/dL (0.2-1.0)
[2017-08-30 13:53] LABS: Bacteria/HPF None Seen HPF (None Seen); Hyaline Casts/LPF 0-3 HYALINE CAST LPF (0-3 Hyaline); RBC/HPF 0-3 HPF (0-3)
[2017-08-30] MEDS ORDERED: Lorazepam 2 MG/ML VIAL ONE (17:12)
[2017-08-30 17:44] LABS: Troponin I Less than 0.010 ng/mL (< 0.028)
[2017-08-30] MEDS ORDERED: Acetaminophen 325 MG TAB PO PRN ×2 (19:47→22:28)
[2017-08-30] MEDS ORDERED: Ondansetron HCl/PF 4 MG/2 ML Vial IVP PRN (19:47)
[2017-08-30] MEDS ORDERED: Ondansetron ODT 4 MG TAB SL PRN (19:47)
[2017-08-30] MEDS ORDERED: Loratadine 10 MG TAB PO PRN (20:31)
[2017-08-30] MEDS ORDERED: Ipratropium Bromide 2.5 ml Neb NEB PRN (20:31)
[2017-08-30] MEDS ORDERED: Docusate Sodium 100 MG/10 ML UDCUP PO PRN (20:31)
[2017-08-30] MEDS ORDERED: Milk Of Magnesia 30 ML UDCUP PO PRN (20:31)
[2017-08-30] MEDS ORDERED: Fioricet 325/50/40 mg Tablet PO PRN (20:31)
[2017-08-30] MEDS ORDERED: Senokot 8.6 MG TAB PO PRN (20:31)
[2017-08-30] MEDS ORDERED: Cetirizine HCl 10 MG TAB PO PRN (20:31)
[2017-08-30] MEDS ORDERED: Zolpidem Tartrate 5 MG TAB PO PRN (20:31)
[2017-08-30] MEDS ORDERED: Ketotifen Fumarate 0.025% Ophth Soln 5 ml Bottle EA EYE PRN (20:31)
[2017-08-30] MEDS ORDERED: Loperamide HCl 2 MG CAP PO PRN (20:31)
[2017-08-30] MEDS ORDERED: Polyethylene Glycol 3350 17 GM Packet PO PRN (20:31)
[2017-08-30] MEDS ORDERED: diphenhydrAMINE 50 MG/ML VIAL IVP SCH (20:31)
[2017-08-30] MEDS ORDERED: Nystatin Powder 15 GM BOT TOP PRN (20:31)
[2017-08-30] MEDS ORDERED: ALPRAZolam 0.5 MG TAB PO PRN (20:31)
[2017-08-30] MEDS ORDERED: Acetaminophen 650 MG Suppository PR PRN (20:31)
[2017-08-30] MEDS ORDERED: Ondansetron ODT 4 MG TAB PO PRN (20:31)
[2017-08-30] MEDS ORDERED: Metoclopramide HCl 10 MG/2 ML VIAL IVP SCH (20:31)
[2017-08-30] MEDS ORDERED: hydrOXYzine 25 MG TAB PO PRN (20:31)
[2017-08-30] MEDS ORDERED: Artificial Tears 18 DROP/0.9 ML EA EYE PRN (20:31)
[2017-08-30] MEDS ORDERED: Non-Formulary Item 1 EACH (Cyanocobalamin (Vitamin B-12) [Vitamin B12] 1,000 MCG) PO SCH (20:31)
[2017-08-30] MEDS ORDERED: [UNRECOGNIZED DRUG - REMARK] EA EYE PRN (21:00)
[2017-08-30 21:20] LABS: Troponin I Less than 0.010 ng/mL (< 0.028)
[2017-08-30] MEDS ORDERED: ZINC ACETATE PO PRN (21:30)
[2017-08-30] MEDS: Acetaminophen 325 MG TAB PO PRN (21:57)
[2017-08-30] MEDS: guaiFENesin ER 600 MG TAB PO SCH (21:57)
--- NOTE | 2017-08-30 22:33 | PDOC.EVN ---
Event Note - Event Note Event Note: Attending H&P I personally evaluated the patient and discussed the management with Dr. Seay. Ia vhe reviewed the writtten HYP adn it si repeated by me. I agree with the History, Examination, Assessment and Plan documented above with any addition or exceptions noted below. Patient admitted for observation for asthma attack, but I also note she has migraine type headache for 2 days which is new for her. She is having nausea, dizziness, and frontal headache. She recieved toradol arlier with minimal relief. Will arrange for tylenol, toradol , reglan for migrain headache.
[2017-08-30] MEDS: Sodium Chloride 0.9% 1,000 ML IV SCH (23:02)
[2017-08-30] MEDS: PROVENTIL INHALER 6.7 G (200 INHALATIONS) INH SCH (23:17)
[2017-08-30] MEDS: Betamethasone 0.1% Cream 15 GM TUBE TOP SCH (23:21)
[2017-08-30] MEDS ORDERED: Ketorolac Tromethamine 30 MG/ML VIAL IVP SCH (23:45)
[2017-08-30] MEDS ORDERED: Metoclopramide HCl 10 MG TAB PO SCH (23:45)
[2017-08-31] MEDS ORDERED: Sodium Chloride 0.9% 500 ML IV SCH ×2 (00:30→00:45)
--- NOTE | 2017-08-31 00:52 | HP-2 ---
CODE STATUS: FULL. PRIMARY CARE PHYSICIAN: Jasmin Ivey MD ATTENDING: Delon Paul MD RESIDENT: Kelvin Seay MD SPECIALIST: Dieter Curran MD with Pulmonology. CHIEF COMPLAINT: Shortness of breath. HISTORY OF PRESENT ILLNESS: A 61-year-old female presents with a 1-week history of worsening shortness of breath and congestion. She states she was found to have UTI 2 days ago from the ED. She has no urinary symptoms at this time. She notes increased secretions from her trach and that it has a foul odor. She specifically denies fevers, chills, nausea, vomiting, or diarrhea. She does note some abdominal pain that began 2 days ago. She has no other complaints at this time. She was recently discharged from the hospital 2 weeks ago for a very similar episode. PAST MEDICAL HISTORY: Significant for anxiety, GERD, chronic hypoxic- hypercapnic respiratory failure, morbid obesity, obstructive sleep apnea, chronic deconditioning. PAST SURGICAL HISTORY: Significant for tracheostomy in 2014, bilateral tubal ligation, cholecystectomy, , hernia repair, and bilateral mastectomy. ALLERGIES: FLU VACCINE, LEVAQUIN, IODINE, NALBUPHINE, SULFA DRUGS, LATEX, and CIPROFLOXACIN. MEDICATIONS: 1. Atrovent 2.5 mL inhalation. 2. B12/acetaminophen/caffeine 50/325/40 mg. 3. Artificial Tears. 4. Xanax 0.5 mg. 5. Vitamin B12 of 1000 mcg. 6. Terazosin 10 mg. 7. Florastor 250 mg. 8. Phenergan 25 mg. 9. Albuterol nebs 2.5 mg. 10. Triamcinolone acetonide 0.5 mg cream. 11. Senna 5 mg b.i.d. 12. MiraLax p.r.n. 13. Lexapro 5 mg p.o. 14. Docusate sodium 50 mg p.o. 15. Pattison 5/325. 16. DuoNeb. 17. Claritin 10 mg p.o. daily. 18. Potassium chloride 20 mEq. 19. Protonix 20 mg. 20. Ventolin HFA. 21. Zofran. 22. Nystatin powder. 23. Hydroxyzine. 24. Urispas. 25. Benadryl. 26. Ambien. 27. Solu-Medrol 20 mg. 28. Lasix 40 mg p.r.n. FAMILY HISTORY: Noncontributory. SOCIAL HISTORY: No tobacco, alcohol, or drug use. She is disabled and she receives 24-hour home health assistance in her home. REVIEW OF SYSTEMS: General: She denies any fevers or chills, no weight changes , no night sweats. Eyes: Denies any vision changes or eye pain. ENT: Denies any nasal congestion, rhinorrhea, or sore throat. Respiratory: She does admit to a cough, congestion, shortness of breath, and some foul odor coming from her trach as well as increased secretions. Cardiovascular: Denies chest pain, palpitations, or edema. Gastrointestinal: She does admit to nausea. Denies vomiting, diarrhea, or constipation. She does admit to some abdominal pain. Genitourinary: Denies incontinence, dysuria, polyuria, or discharge. Skin: Denies rashes, lesions, jaundice, or itching. Musculoskeletal: She does admit to pain, tenderness, stiffness, swelling, and arthritis to her knees. Neurologic: Denies weakness, numbness, syncope, or seizures. Psychiatric: She does admit to anxiety. She denies any depression. PHYSICAL EXAMINATION: VITAL SIGNS: Blood pressure 156/65, pulse was 102, respiration 16, temperature max 99.5, pulse ox 96% on a nonrebreather. Current weight is 152 kilos. GENERAL: Alert and oriented x3, well-developed, obese. She is appropriate, interactive. EYES: PERRLA. Conjunctivae within normal limits. ENT: Tympanic membranes pearly frederick without bulging or erythema. Nasal mucosa and oropharynx were within normal limits. NECK: Supple. No lymphadenopathy. She does have a tracheostomy in place. CARDIOVASCULAR: Regular rate and rhythm. No murmurs. Radial and pedal pulses equal bilaterally. RESPIRATORY: Normal effort. No retractions. She does have wheezing at present bilaterally on exam. SKIN: Warm and dry. No cyanosis. No lesions. ABDOMEN: Soft. No tenderness to palpation. Bowel sounds are present x4. No masses or distention. EXTREMITIES: No clubbing, cyanosis, or edema. MUSCULOSKELETAL: Structure within normal limits. Tone within normal limits. She is bedbound. Muscle strength testing was not performed and range of motion was not performed on her lower extremities. NEUROLOGIC: No focal neurologic deficits. Sensation within normal limits. Cranial nerves II through XII grossly intact. GCS was 15. PSYCHIATRIC: She was appropriate. LABORATORY AND DIAGNOSTIC DATA: She had a white blood cell count 7.2, platelet count 250, hemoglobin 11.1, hematocrit 37.3, MCV 78.3, neutrophils 67.9%. Sodium 139, potassium 4.7, chloride 100, bicarbonate 35, BUN 24, creatinine 1.24 , glucose 94. CK 41, CK-MB 1.6, troponin I at 0.01, calcium 9.4, total protein 7.5, albumin 3.5, total bilirubin 0.3, AST was 11, ALT 12, alkaline phosphatase 69. Influenza A and B were negative. Her urinalysis did have a trace amount of blood, a small amount of leukocyte esterase, and 11-20 white blood cells. Her chest x-ray showed patchy parenchymal densities with increased perihilar densities and poor respiratory effort. ASSESSMENT AND PLAN: 1. We have a 61-year-old female with moderate asthma exacerbation. Give her DuoNeb, O2 supplementation. Consider VBG if she worsens. Give her trach care and consult pulmonary as well as put her on Mucinex. 2. Acute kidney injury. Give her IV fluids and recheck a BMP. 3. Asymptomatic bacteriuria. She is already on antibiotics and will continue. 4. Anxiety. Ativan p.r.n. and give her home meds. 5. Morbid obesity. She was counseled on diet and exercise. 6. Obstructive sleep apnea. We will give her CPAP/BiPAP at night. 7. Gastroesophageal reflux disease. We will continue her home meds. 8. Chronic hypoxic-hypercapnic respiratory failure. We will give her O2 supplementation and watch her bicarbonate status. Disposition length of hospital stay will be observation and 1 midnight. Symptomatic medications will be provided. History and physical exam as well as management have been discussed with Dr. Paul. LIZETT
[2017-08-31 01:18] VITALS: BMI 56.4
[2017-08-31] MEDS: PROVENTIL INHALER 6.7 G (200 INHALATIONS) INH SCH ×4 (02:25→14:20)
[2017-08-31] MEDS: Sodium Chloride 0.9% 1,000 ML IV SCH ×3 (02:33→10:49)
[2017-08-31 05:13] LABS: Anion Gap 14 mmol/L (10-20); BUN (Urea Nitrogen) 20 mg/dL (9.8-20.1); Calc. Creatinine Clearance 152 mL/min (70-130); Calcium 8.4 mg/dL (7.8-10.44); Carbon Dioxide 29 mmol/L (22-29); Chloride 101 mmol/L (98-107); Estimated GFR-MDRD 77
[2017-08-31 05:24] LABS: Base Excess 6.1 mEq/L (0 (+/- 2.5)); O2 Content (venous) 13.7 VOL% (12.5-17.5); pH (venous) 7.42 (7.35-7.45)
--- NOTE | 2017-08-31 06:17 | PDOC.FM ---
- Subjective Subjective: Patient states she still has a bad headache. She did have an episode of hypotension overnight and received a bolus. When she woke up her blood pressure has been at her baseline. She also notes that she has had chest tightness. She denies chest pain. This patient has also had attention seeking behavior during this hospitalization. Several times she was able to function normally without any jerking of her extremities. She was able to use her mobile phone, perform ADLs and move herself up in bed. As per the staff she would get these "jerks" whenever she was asked specifically to perform tasks. However, it is noted that she was able to function normally when she was distracted or when she was not asked to perform a specific function. Specifically she showed times of hand flapping when asked to grab her mobile phone or to perform simple neuro tasks; however, while I was in the room she was able to use her phone to play music on and to move herself up in bed without assistance. This patient brings to attention several new complaints when her other complaints have been evaluated and determined to not be causing her any problems. She has brought up several times about her Trach needing to be changed. I did seek Dr. Curran as a curbside consultation and he recommended no changes to her trach until her scheduled change in September 2017. His recommendations have been told to the patient and she is not in agreement. - Objective Vital Signs & Weight: Vital Signs (12 hours) Temp Pulse Resp BP Pulse Ox 08/31/17 03:21 98.7 F 82 20 108/52 L 99 08/31/17 02:30 86 20 96 08/31/17 02:25 86 20 96 08/31/17 01:10 102/49 L 08/30/17 23:40 98.8 F 89 20 94/44 L 96 08/30/17 21:28 101 H 18 97 08/30/17 20:31 97 08/30/17 19:35 98.5 F 102 H 18 127/71 97 Weight Weight 144.469 kg Result Diagrams: 08/30/17 11:34 08/31/17 09:16 Phys Exam - Physical Examination HEENT: moist MMs Neck: no nodes Respiratory: wheezing present Improved from yesterday, no crackles. Cardiovascular: RRR, no significant murmur Gastrointestinal: soft, non-tender, no distention, positive bowel sounds Musculoskeletal: no edema, pulses present Neurological: non-focal, normal sensation, moves all 4 limbs She is basically bed bound, but can move herself up in bed Lymphatic: no nodes Psychiatric: normal affect, A&O x 3 Skin: no rash Dx/Plan (1) Anxiety Code(s): F41.9 - ANXIETY DISORDER, UNSPECIFIED Status: Acute Plan: -Ativan PRN -Long standing history and will continue home meds with supplementation. -Patient would likely benefit from counseling as an outpatient (2) Migraine headache Code(s): G43.909 - MIGRAINE, UNSP, NOT INTRACTABLE, WITHOUT STATUS MIGRAINOSUS Status: Acute Plan: -Toradol for pain relief -IV benadryl, Reglan for pain relief (3) Asymptomatic bacteriuria Code(s): R82.71 - BACTERIURIA Status: Acute Plan: -E. coli cfu 10,000 - 25,000 -will not treat at this time. (4) Chronic respiratory failure with hypoxia and hypercapnia Code(s): J96.11 - CHRONIC RESPIRATORY FAILURE WITH HYPOXIA; J96.12 - CHRONIC RESPIRATORY FAILURE WITH HYPERCAPNIA Status: Acute Plan: -Oxygen supplementation not above her baseline -VBG this am shows pH 7.42, HCO3 32 (5) Morbid obesity Code(s): E66.01 - MORBID (SEVERE) OBESITY DUE TO EXCESS CALORIES Status: Chronic Plan: -Counseled on diet and exercise (6) GLORIA (obstructive sleep apnea) Code(s): G47.33 - OBSTRUCTIVE SLEEP APNEA (ADULT) (PEDIATRIC) Status: Chronic Plan: -Use of Bipap/CPAP at night (7) Obesity hypoventilation syndrome Code(s): E66.2 - MORBID (SEVERE) OBESITY WITH ALVEOLAR HYPOVENTILATION Status : Chronic Plan: -Oxygen supplementation -Tracheostomy care - Plan Plan: Patient should be discharged today with follow up with her PCP
[2017-08-31] MEDS ORDERED: Lorazepam 0.5 MG TAB PO PRN (07:49)
[2017-08-31] MEDS ORDERED: diphenhydrAMINE 25 MG CAP PO PRN (07:51)
[2017-08-31] MEDS ORDERED: Metoclopramide HCl 10 MG/10 ML UDCUP PO SCH (08:00)
[2017-08-31] MEDS ORDERED: Potassium Chloride 20 MEQ TAB PO SCH (08:00)
[2017-08-31] MEDS: Albuterol Sulfate 2.5 mg/3 ml Neb NEB SCH ×2 (08:12→14:17)
[2017-08-31] MEDS: guaiFENesin ER 600 MG TAB PO SCH (08:51)
[2017-08-31] MEDS: Betamethasone 0.1% Cream 15 GM TUBE TOP SCH (08:52)
[2017-08-31] MEDS ORDERED: Escitalopram Oxalate 10 mg Tablet PO SCH (09:00)
[2017-08-31] MEDS ORDERED: Tetrahydrozoline 0.05% OPTH 15 ML BOT EA EYE SCH (09:00)
[2017-08-31] MEDS ORDERED: Saccharomyces boulardii 250 MG CAP PO SCH (09:00)
[2017-08-31] MEDS ORDERED: Ubidecarenone 50 MG CAP PO SCH (09:00)
[2017-08-31] MEDS ORDERED: Enoxaparin Sodium 40 MG/0.4 ML SYRINGE SC SCH (09:00)
[2017-08-31 09:48] LABS: Anion Gap 12 mmol/L (10-20); BUN (Urea Nitrogen) 19 mg/dL (9.8-20.1); Calc. Creatinine Clearance 153 mL/min (70-130); Calcium 8.7 mg/dL (7.8-10.44); Carbon Dioxide 29 mmol/L (22-29); Chloride 103 mmol/L (98-107); Estimated GFR-MDRD 78
[2017-08-31 11:53] VITALS: BP 128/51; TEMP 98.9
--- NOTE | 2017-08-31 13:00 | ADD-PRG ---
ADDENDUM: This is an addendum to the note of Dr. Kelvin Seay. Ms. Mayorga is resting quietly, in no distress. She has had some wheezing yesterday, but this is cleared with treatment and she will likely be discharged later today. Her diagnosis was a very mild exacerbation of her asthma.
--- NOTE | 2017-08-31 13:04 | DIS-2 ---
DATE OF ADMISSION: 08/30/2017 DATE OF DISCHARGE: 08/31/2017 RESIDENT: Kelvin Seay MD ADMITTING ATTENDING: Delon Paul M.D. DISCHARGE ATTENDING: Toño De La O MD CONSULTATIONS: None. PROCEDURES: The patient did undergo a chest x-ray that showed patchy parenchymal densities with increased perihilar densities as well. Findings are likely attributed to the shallow depth of inspiration and portable technique, but followup chest x-ray with better depth of inspiration is recommended to exclude developing areas of pneumonitis. PRIMARY DIAGNOSES: 1. Anxiety. 2. Migraine headache. 3. Asymptomatic bacteriuria. 4. Chronic respiratory failure with hypoxia and hypercapnia. 5. Morbid obesity. 6. Obstructive sleep apnea. 7. Obesity hypoventilation syndrome. 8. Asthma. DISCHARGE MEDICATIONS: 1. Albuterol sulfate nebulizer. 2. Zofran 4 mg. 3. Atrovent 2.5 mL. 4. Benadryl 25 mg. 5. Vitamin B12, 1000 mcg. 6. Docusate sodium 50 mg. 7. Coenzyme Q10, 100 mg. 8. Potassium chloride 20 mEq. 9. Albuterol sulfate HFA. 10. Senna 5 mL b.i.d. p.r.n. 11. Promethazine 25 mg p.o. q.6 hours p.r.n. 12. Naphazoline and pheniramine eye drops. 13. Hydrocodone/acetaminophen 10/325. 14. Hydroxyzine 25 mg. 15. Zinc acetate 25 mg. 16. Cetirizine 10 mg. 17. Butalbital/acetaminophen/caffeine 50/325/40. 18. Xanax 0.5 mg b.i.d. p.r.n. 19. Tetrahydrozoline eye drops. 20. Ambien 10 mg. 21. Artificial Tears. 22. Loperamide 2 mg p.o. p.r.n. 23. Loratadine 10 mg p.r.n. 24. Nystatin powder topical. 25. Pantoprazole 40 mg daily. 26. MiraLax 17 grams daily p.r.n. 27. Triamcinolone acetonide topical. 28. Ketotifen fumarate 1 eyedrops. 29. Urispas 100 mg p.o. daily. 30. Citalopram 10 mg. 31. Sucralfate 1 gram p.r.n. 32. Lorazepam 0.5 mg b.i.d. 33. Furosemide 40 mg daily p.r.n. 34. Budesonide/formoterol 160/4.5 mg. 35. Mucinex 600 mg q.12 hours. DISCONTINUED MEDICATIONS: None. LABORATORY DATA: She had a potassium of 5.0. A venous blood gas that showed a pH of 7.42, pCO2 of 50.5, bicarbonate of 32. She also had an asymptomatic bacteriuria. HISTORY OF PRESENT ILLNESS AND HOSPITAL COURSE: This is a 61-year-old female who presents with a 1 week history of worsening shortness of breath and congestion. She states she was found to have UTI 2 days ago from the ED. She has no urinary symptoms at this time. She notes increased secretions from her tracheostomy and it is foul odor. She specifically denies fevers, chills, nausea, vomiting or diarrhea. She does note some abdominal pain that began 2 days ago. She has no other complaints at this time. She was recently discharged from the hospital 2 weeks ago for a very similar episode. . During the hospitalization, the patient was having intentional and attention seeking behaviors to include hand flapping and tremors as well as jerks in bed. The patient was noted that when prompted to do a task, she was not able to perform that task, but she was able to transfer herself to the bedside and also to pull herself up in bed without any of these jerks occurring. The patient was also seen using her telephone to play music and had no problems with that. However, she was not able to perform neurological evaluation when prompted. The patient did have a several concerns about her tracheostomy. I did talk to Dr. Curran as a curbside consultation, he said no changes to her tracheostomy until scheduled in 09/2017. The patient has a longstanding history with anxiety to the point where she would likely benefit from an outpatient counseling therapy sessions as well as medical management from that standpoint. The patient otherwise had no other complications during this hospitalization and was discharged on appropriate condition. DISPOSITION: Stable. DISCHARGE INSTRUCTIONS: 1. She will be discharged home into the care of her time piece repairer live-in home health aide. 2. Diet will be a bariatric diet. 3. Activity will be as tolerated. We do encourage her to increase her activity to the point where she may be able to lose some weight because I think that would help her condition. 4. Follow up will be with her primary care physician, Dr. Ivey in 1 week to discuss more closely primary care and some of the counseling options. LIZETT
[2017-08-31] MEDS: Acetaminophen 325 MG TAB PO PRN (13:07)
--- NOTE | 2017-08-31 13:27 | EKG ---
Test Reason : Blood Pressure : / mmHG Vent. Rate : 097 BPM Atrial Rate : 097 BPM P-R Int : 138 ms QRS Dur : 080 ms QT Int : 354 ms P-R-T Axes : 038 010 041 degrees QTc Int : 449 ms Normal sinus rhythm Normal ECG Confirmed by RANDOLPH ART ([id number]), photo editor JB GONZALEZ ([id number]) on 08/31/2017 1:27:08 PM Referred By: Confirmed By:RANDOLPH ART
== END 2017-08-31 15:02 | disposition home health service (06) ==
LOC: ERS 10:51 → 2SE 16:39
PROVIDERS: ADMIT Family Medicine; ATTEND Family Medicine
DX: J45.901 Unspecified asthma with (acute) exacerbation (principal); F41.9 Anxiety disorder, unspecified; G43.909 Migraine, unspecified, not intractable, without status migrainosus; R82.71 Bacteriuria; J96.11 Chronic respiratory failure with hypoxia; J96.12 Chronic respiratory failure with hypercapnia; E66.2 Morbid (severe) obesity with alveolar hypoventilation; R10.9 Unspecified abdominal pain; K21.9 Gastro-esophageal reflux disease without esophagitis; R53.81 Other malaise; N17.9 Acute kidney failure, unspecified; I95.9 Hypotension, unspecified; Z68.43 Body mass index [BMI] 50.0-59.9, adult; Z73.6 Limitation of activities due to disability; Z79.899 Other long term (current) drug therapy; Z88.1 Allergy status to other antibiotic agents; Z91.041 Radiographic dye allergy status; Z91.040 Latex allergy status; Z88.5 Allergy status to narcotic agent; Z91.013 Allergy to seafood; Z88.2 Allergy status to sulfonamides; Z88.7 Allergy status to serum and vaccine; Z88.8 Allergy status to other drugs, medicaments and biological substances; Z91.018 Allergy to other foods; Z93.0 Tracheostomy status; Z98.51 Tubal ligation status; Z90.13 Acquired absence of bilateral breasts and nipples; Z90.49 Acquired absence of other specified parts of digestive tract; Z98.890 Other specified postprocedural states; Z71.3 Dietary counseling and surveillance; Z87.891 Personal history of nicotine dependence
CPT/HCPCS: 51701; 71010; 80048 ×2; 80053; 82550; 82553; 82805; 82962 ×2; 84484 ×2; 85025; 87804 ×2; 93005; 94640 ×4; 94664; 96361 ×2; 96372; 96374; 96375 ×2; 96376; 99285; G0378; 36415; 36416; 81003; 81015; A4353; J0696; J1200; J1650; J1885; J2060; J2765; J7620; J7644

== ENCOUNTER 2017-10-01 16:50 | Inpatient (IN) | payer MEDICARE, MEDICAID ==
[2017-10-01 17:42] LABS: pH, Arterial 7.29 (7.35-7.45)
[2017-10-01 17:43] LABS: Actual Bicarbonate (HCO3a) 41.5 mEq/L (22-26); Base Excess (BEa) 11.9 mEq/L (0 (+/-) 2.5); CO2 Tension 87.7 mmHg (35.0-45.0); Hematocrit-ABG 41.5 % (36.0-47.0); Hemoglobin (Hb) 11.5 g/dL (12.0-16.0); O2 Tension (PaO2) 80.5 mmHg (80.0-100.0)
[2017-10-01 17:44] LABS: ALV-art Gradient 166.375 (0-20); Analyzer IN Cardio ER; Calcium, Ionized 1.2 mmol/L (1.12-1.30); Puncture Site RRA
[2017-10-01 21:52] LABS: pH, Arterial 7.31 (7.35-7.45)
[2017-10-01 21:53] LABS: Actual Bicarbonate (HCO3a) 42.7 mEq/L (22-26); Base Excess (BEa) 13.4 mEq/L (0 (+/-) 2.5); Hematocrit-ABG 40.7 % (36.0-47.0); Hemoglobin (Hb) 11.1 g/dL (12.0-16.0); O2 Tension (PaO2) 70.2 mmHg (80.0-100.0)
[2017-10-01 21:54] LABS: Analyzer IN Cardio ER; Calcium, Ionized 1.1 mmol/L (1.12-1.30); Puncture Site RRA
[2017-10-01] MEDS ORDERED: Polyethylene Glycol 3350 17 GM Packet PO PRN (23:32)
[2017-10-01] MEDS ORDERED: Ondansetron ODT 4 MG TAB PO PRN (23:32)
[2017-10-01] MEDS ORDERED: Promethazine 25 MG TAB PO PRN (23:32)
[2017-10-01] MEDS ORDERED: Furosemide 40 MG TAB PO PRN (23:32)
[2017-10-01] MEDS ORDERED: Nystatin Powder 15 GM BOT TOP PRN (23:32)
[2017-10-01] MEDS ORDERED: Cetirizine HCl 10 MG TAB PO PRN (23:32)
[2017-10-01] MEDS ORDERED: Loratadine 10 MG TAB PO PRN (23:45)
[2017-10-02] MEDS ORDERED: Senokot 8.6 MG TAB PO PRN (01:01)
[2017-10-02 01:26] VITALS: BMI 57.9
[2017-10-02] MEDS ORDERED: Enoxaparin Sodium 40 MG/0.4 ML SYRINGE SC SCH (01:30)
[2017-10-02] MEDS: Sodium Chloride 0.9% 1,000 ML IV SCH ×2 (01:31→17:54)
[2017-10-02 01:57] LABS: #Basophils 0.1 thou/uL (0.0-0.2); #Lymphocytes 0.4 thou/uL (1.20-3.40); #Monocytes 0.4 thou/uL (0.11-0.59); #Neutrophils 8.5 thou/uL (1.40-6.50); %Basophils 1.3 % (0.0-1.0); %Eosinophils 0.2 % (0.0-10.0); %Lymphocytes 4.7 % (21.0-51.0); %Monocytes 3.7 % (0.0-10.0); Hemoglobin 11.7 g/dL (12.0-16.0); Mean Corpuscular HGB CONC 29.3 g/dL (32.0-36.0); Mean Corpuscular Hemoglobin 23.6 pg (27.0-31.0); Mean Corpuscular Volume 80.6 fl (81.0-99.0); Mean Platelet Volume 9.5 fL (7.4-10.4); Platelet Count 261 thou/uL (130-400); RBC Distribution Width 18.3 % (11.5-14.5); Red Blood Cell (RBC) Count 4.94 mill/uL (4.20-5.40); White Blood Cell (WBC) Count 9.5 thou/uL (4.8-10.8)
[2017-10-02] MEDS ORDERED: Azithromycin 500 MG in Sodium Chloride 0.9% 250 ML 250 ML IVPB SCH ×2 (02:00→22:00)
[2017-10-02 02:01] LABS: Actual Bicarbonate (HCO3a) 43.8 mEq/L (22-26); CO2 Tension 86.5 mmHg (35.0-45.0); O2 Tension (PaO2) 48.4 mmHg (80.0-100.0); pH, Arterial 7.32 (7.35-7.45)
[2017-10-02 02:02] LABS: Base Excess (BEa) 14.7 mEq/L (0 (+/-) 2.5); Calcium, Ionized 1.1 mmol/L (1.12-1.30); Hematocrit-ABG 39.6 % (36.0-47.0); Hemoglobin (Hb) 10.5 g/dL (12.0-16.0)
[2017-10-02 02:03] LABS: ALV-art Gradient 43.115 (0-20); Puncture Site RRAD
[2017-10-02 02:16] LABS: CKMB 1.4 ng/mL (0-6.6)
[2017-10-02 02:20] LABS: Anion Gap 17 mmol/L (10-20); BUN (Urea Nitrogen) 26 mg/dL (9.8-20.1); Calc. Creatinine Clearance 136 mL/min (70-130); Calcium 9.1 mg/dL (7.8-10.44); Carbon Dioxide 35 mmol/L (22-29); Chloride 93 mmol/L (98-107); Estimated GFR-MDRD 68; Glucose 199 mg/dL (70-105); Sodium 140 mmol/L (136-145)
[2017-10-02 02:24] LABS: Troponin I Less than 0.010 ng/mL (< 0.028)
[2017-10-02] MEDS ORDERED: diphenhydrAMINE 50 MG/ML VIAL IVP SCH ×2 (04:15)
[2017-10-02 05:50] LABS: Bilirubin Negative (Negative); Blood, Urine Negative (Negative); Clarity CLEAR (Clear); Glucose, Urine (Dipstick) Negative (Negative); Leukocyte Small (Negative); Nitrite Negative (Negative); Protein, Urine (Dipstick) Trace mg/dL (Neg-Trace); Specific Gravity, Urine 1.023 (1.002-1.036); Urobilinogen 0.2 mg/dL (0.2-1.0)
[2017-10-02 05:53] LABS: Bacteria/HPF None Seen HPF (None Seen); Hyaline Casts/LPF 0-3 HYALINE CAST LPF (0-3 Hyaline); Pathc Cast-AUWi Flag 0.27 (0-2.49)
--- NOTE | 2017-10-02 06:22 | PDOC.FM ---
- Subjective Subjective: Awake and alert this AM. Attempting to communicate, but difficult with Bipap machine on. No complaints this morning, wonders when she will be taken off the machine again. - Objective MAR Reviewed: Yes Vital Signs & Weight: Vital Signs (12 hours) Temp Pulse Resp BP Pulse Ox 10/02/17 04:35 107 H 20 100 10/02/17 04:11 97.0 F L 100 22 H 161/73 H 99 10/02/17 04:00 104 H 10/02/17 02:15 96 20 91 L 10/02/17 02:00 98.7 F 90 18 161/73 H 97 10/02/17 00:40 98.7 F 100 18 145/65 H 92 L Weight Weight 143.834 kg I&O: 09/30/17 10/01/17 10/02/17 06:59 06:59 06:59 Intake Total 250 Balance 250 Result Diagrams: 10/02/17 01:47 10/02/17 01:47 <Tyshawn Jo - Last Filed: 10/02/17 11:41> - Objective Vital Signs & Weight: Vital Signs (12 hours) Temp Pulse Resp BP Pulse Ox 10/02/17 17:00 101 H 10/02/17 16:58 104 H 20 100 10/02/17 15:45 98.9 F 104 H 18 158/87 H 100 10/02/17 11:38 103 H 10/02/17 11:36 99 20 96 10/02/17 10:58 97 F L 96 18 190/89 H 97 10/02/17 08:19 97 10/02/17 08:17 95 10/02/17 08:14 93 19 95 10/02/17 07:51 97.7 F 89 20 98 10/02/17 07:04 97.7 F 89 20 140/72 97 Weight Weight 143.834 kg I&O: 10/01/17 10/02/17 10/03/17 06:59 06:59 06:59 Intake Total 250 Balance 250 Result Diagrams: 10/02/17 01:47 10/02/17 01:47 <Bruce Montesinos - Last Filed: 10/02/17 17:20> Phys Exam - Physical Examination Constitutional: NAD morbidly obese HEENT: PERRLA Neck: supple, full ROM Respiratory: no wheezing, clear to auscultation bilateral Cardiovascular: RRR, no significant murmur Gastrointestinal: soft, non-tender, no distention Musculoskeletal: pulses present Neurological: non-focal, normal sensation, moves all 4 limbs Psychiatric: normal affect, A&O x 3 Skin: no rash <Tyshawn Jo - Last Filed: 10/02/17 11:41> Dx/Plan (1) Acute on chronic respiratory failure with hypoxia and hypercapnia Code(s): J96.21 - ACUTE AND CHRONIC RESPIRATORY FAILURE WITH HYPOXIA; J96.22 - ACUTE AND CHRONIC RESPIRATORY FAILURE WITH HYPERCAPNIA Status: Acute Plan: Continue Bipap this morning. Was initially refusing bipap overnight. Oxygen sats much improved from admission, follow ABGs. Expect hypercapnia and hypoxia to begin improving. Appreciate pulmonology recs. (2) COPD (chronic obstructive pulmonary disease) Status: Chronic QualifierTitle: COPD type: unspecified COPD Qualified Code(s): J44.9 - Chronic obstructive pulmonary disease, unspecified Plan: Continue steroids, scheduled nebs, abx. (3) GLORIA (obstructive sleep apnea) Code(s): G47.33 - OBSTRUCTIVE SLEEP APNEA (ADULT) (PEDIATRIC) Status: Chronic (4) Morbid obesity Code(s): E66.01 - MORBID (SEVERE) OBESITY DUE TO EXCESS CALORIES Status: Chronic Plan: Weight has improved dramatically over the past year. (5) Anxiety Code(s): F41.9 - ANXIETY DISORDER, UNSPECIFIED Status: Acute Plan: Will treat with ativan for now, as she gets this outpt. <Tyshawn Jo - Last Filed: 10/02/17 11:41> Attending Addendum - Attending Addendum I personally evaluated the patient and discussed the management with Dr. Jo. I agree with and repeated the History, Examination, Assessment and Plan documented above with any addition or exceptions noted below. Doing better this morning. Her main complaint is anxiety. No cp/palps, but still quite dyspneic. Nursing says she becomes a bit obtunded without bipap. Acute on chronic hypox/hypercap resp failure in setting of likely COPD/asthma exacerbation with recent stay for similar reason, and no evidence of invasive infection at this point. Will continue scheduled nebs, steroids, azithromycin, and plan on BiPAP in IMCU until she improved. Usual measures for HTN, glucose control. DVT/GI ppx. <Bruce Montesinos - Last Filed: 10/02/17 17:20>
[2017-10-02] MEDS ORDERED: Lorazepam 0.5 MG TAB PO PRN ×2 (06:58→06:59)
--- NOTE | 2017-10-02 07:05 | HP-2 ---
DATE OF ADMISSION: 10/01/2017 CODE STATUS: FULL. PRIMARY CARE PHYSICIAN: Dr. Ivey ATTENDING: Dr. Bruce Montesinos RESIDENT: Dr. Manda Cotter HISTORIAN: Patient. CHIEF COMPLAINT: Shortness of breath. HISTORY OF PRESENT ILLNESS: This is a 61-year-old female with a past medical history of obstructive sleep apnea and COPD presents with worsening shortness of breath she states since last Wednesday. She states that she went to [facility] last Wednesday and was en route via EMS to be transferred to a hospital in [place], but en route was given 4 mg of morphine and became hemodynamically unstable and was taken to a hospital in [place]. She was admitted to that hospital and had a hospital stay there until this past when she was discharged. She went home and unfortunately felt worse. She had worsening shortness of breath and chest pain and she at that point went to the [facility] and was transferred here. Associated symptoms include a cough with clear sputum, wheezing and the chest pain she describes as diffuse pressure throughout her chest that is constant that has started this morning and she also complains of a headache that she says is also constant, has been going on for 3 months. It is very painful and throughout her entire head. ER: She received a DuoNeb treatment in the ER. In the [facility] she received Tylenol 3, Ativan 1 mg, Zofran 8 mg IV push, Decadron 10 mg IV push, magnesium 2 grams IV, Toradol 30 mg IV, and Tessalon Perles 200 mg oral and then here in this ER she received a DuoNeb treatment. PAST MEDICAL HISTORY: 1. COPD. 2. Obstructive sleep apnea. 3. Morbid obesity. 4. Anxiety. 5. Depression. PAST SURGICAL HISTORY: 1. Tracheostomy placed in 2014. 2. Bilateral tubal ligation. 3. Cholecystectomy. 4. . 5. Hernia repair. 6. Bilateral mastectomy. CURRENT HOME MEDICATIONS: 1. Albuterol sulfate nebulizer t.i.d. 2. Albuterol sulfate inhaler 2 puffs p.r.n. 3. Xanax 0.5 mg p.o. b.i.d. p.r.n. 4. Artificial tears 1 mg to eyes. 5. Butalbital/acetaminophen/caffeine 1 tab p.o. daily p.r.n. 6. Benadryl 25 mg p.o. at bedtime. 7. Colace 50 mg p.o. daily. 8. Lexapro 10 mg p.o. daily. 9. Flavoxate 100 mg p.o. p.r.n. 10. Guaifenesin 300 mg p.o. q.12h. 11. Talbott 10/325 mg 1 tab p.o. q.4h. 12. Hydroxyzine 25 mg p.o. p.r.n. 13. Atrovent 2.5 mL inhaled q.4h. p.r.n. 14. Ketotifen fumarate ophthalmic solution 1 drop each eye b.i.d. p.r.n. 15. Loperamide 2 mg p.o. p.r.n. 16. Loratadine 10 mg p.o. daily. 17. Naphazoline eye allergy relief 1 drop each eye q.i.d. 18. Protonix 40 mg p.o. daily. 19. Sennosides 5 mg p.o. b.i.d. p.r.n. 20. Sucralfate tab p.o. q.i.d. 21. Tetrahydrozoline 1 drop each eye daily. 22. Triamcinolone 1 application topical t.i.d. 23. Coenzyme Q 100 mg p.o. daily. 24. Zinc 1 tab p.o. p.r.n. 25. Ambien 10 mg p.o. at bedtime p.r.n. 26. Symbicort 2 puffs inhaled b.i.d. 27. Cetirizine 10 mg p.o. at bedtime. 28. Vitamin B12 1000 mcg p.o. daily. 29. Furosemide 40 mg p.o. daily. 30. Nystatin 1 gram topical b.i.d. p.r.n. 31. Zofran 8 mg p.o. q.8h. p.r.n. 32. MiraLax 17 grams p.o. daily p.r.n. 33. Potassium chloride 20 mEq p.o. daily. 34. Phenergan 25 mg p.o. q.6h. p.r.n. FAMILY HISTORY: None. SOCIAL HISTORY: Denies tobacco, alcohol, or drug use. REVIEW OF SYSTEMS: GENERAL: Denies fevers, chills. HEENT: Denies nasal congestion, rhinorrhea, sore throat, vision changes or eye pain. RESPIRATORY: Endorses cough, but with clear sputum. Denies congestion and/or shortness of breath and wheezing. CARDIOVASCULAR: Endorses chest pain. Denies palpitations, edema, paroxysmal nocturnal dyspnea or orthopnea. GI: Denies nausea, vomiting, diarrhea. GENITOURINARY: Denies incontinence, dysuria. SKIN: Denies rashes or lesions. MUSCULOSKELETAL: Denies pain or tenderness. NEURO: Denies weakness, numbness. PSYCHIATRIC: Denies anxiety and depression. PHYSICAL EXAMINATION VITAL SIGNS: Blood pressure 133/96, pulse 107, respiratory rate 22, T-max 98.5 , pulse ox 95% on facemask. Current weight 170 kilograms. GENERAL: Alert and oriented x4, no apparent distress. Well-developed, well- nourished, obese, appropriately interactive. EYES: PERRLA, EOMI. ENT: Nasal mucosa within normal limits. Oropharynx within normal limits. NECK: Supple, no lymphadenopathy, no thyromegaly. CARDIOVASCULAR: Regular rate and rhythm. No murmurs, rubs or gallops. RESPIRATORY: Normal effort, no retractions, wheezing on the left side throughout and crackles at the right lung base. ABDOMEN: Soft, nontender to palpation. Bowel sounds in all 4 quadrants. EXTREMITIES: No clubbing, cyanosis or edema. MUSCULOSKELETAL: Obese. Decreased mobility. NEUROLOGIC: No focal deficits. GCS 15. PSYCHIATRIC: Appropriate. LABORATORY DATA: CBC: 14.7, 11.1, 36.6, 323. CMP: 143, 2.6, 94 37, 29, 0.94, 116, 73. AST, ALT, alkaline phosphatase 12, 48, 62.4. Calcium, total protein, albumin, 8.4, 6.7, 3.5. PT, INR, PTT; 13.2, 1.0, 22.2. Flu A and B negative. Group B strep negative. ABG; pH 7.29, pCO2 87, pO2 80.5, bicarb 41.5. Chest x-ray showed atelectasis. ASSESSMENT AND PLAN: This is a 61-year-old female with past medical history of chronic obstructive pulmonary disease and obstructive sleep apnea with a tracheostomy, admitted for acute on chronic hypercapnic hypoxic respiratory failure secondary to obstructive sleep apnea and chronic obstructive pulmonary disease exacerbation. 1. Acute on chronic hypercapneic hypoxic respiratory failure: We will repeat an ABG in 4 hours and we currently will treat the patient for chronic obstructive pulmonary disease exacerbation with DuoNebs q.4 h. scheduled through her trach as well as place the patient on Rocephin and azithromycin. The patient received Rocephin in the ER. We will provide albuterol p.r.n. q.2h. and we will provide methylprednisone IV. 2. Dysuria. The patient complains of dysuria. She has a history of urinary tract infections. We will order a straight cath UA and send it for a culture as well. 3. Systemic inflammatory response syndrome without a source. The patient had a leukocytosis and was tachycardic. In the ER she has been afebrile with normal respiratory rate. We will order a UA and culture as stated above and currently chest x-ray just showed atelectasis. We will monitor for signs and symptoms of infection. The patient is currently being treated for chronic obstructive pulmonary disease exacerbation with antibiotics of Rocephin and azithromycin. 4. Atypical chest pain. The patient's initial troponins have been negative as well as her CK-MB has been normal and her EKG showed a normal sinus rhythm. We will repeat an EKG in 4 hours and a troponin. DISPOSITION/LENGTH OF HOSPITAL STAY: 2 days. Symptomatic medications will be provided. History and physical exam as well as management discussed with Dr. Montesinos. LIZETT
[2017-10-02] MEDS ORDERED: predniSONE 20 MG TAB PO SCH (08:00)
--- NOTE | 2017-10-02 08:27 | HP ---
DATE OF ADMISSION: 10/01/2017 CHIEF COMPLAINT: Shortness of breath. HISTORY OF PRESENT ILLNESS: This is a 61-year-old female with multiple medical problems including ob structive sleep apnea, COPD/asthma, morbid obesity, Pickwickian syndrome who is status post trach, wh o was recently in [facility] for 4 days where she is being treated for a breathing difficulty. She improved just a little bit and then went home. At home, she felt like she decompensated and then decided to come back. Originally she was en route from [facility] to [place] for her first hos pitalization and because she started getting worse en route, they stopped at the nearest hospital in [place]. At this time, she presents to our ER with shortness of breath, was found to have a leukocyto sis and a CO2 of 80s and subsequently we were called for admission. She says she is complaining of q uite a bit of shortness of breath and is coughing up quite a bit of phlegm. She also complains of so me chest pressure that is primarily right-sided, does not radiate, with no nausea, vomiting or diapho resis. She is unable to tell me if it is exertional because she is mostly bedbound. She also compla ins of a headache that has been going on for months. It is band-like, worse in the back and sides of her head with no associated photophobia. PAST MEDICAL HISTORY: Significant for anxiety, GERD, chronic hypoxemic hypercapnic respiratory failu re, morbid obesity, obstructive sleep apnea, and chronic deconditioning. PAST SURGICAL HISTORY: Significant for a trach in 2014, bilateral tubal ligation, cholecystectomy, C -section, hernia repair and bilateral mastectomy. ALLERGIES: She is allergic to the FLU VACCINE, LEVAQUIN, IODINE, NALBUPHINE, SULFA DRUGS, LATEX and CIPRO. MEDICATIONS: She has quite a few medications - see them as dictated in the resident's note. FAMILY HISTORY: Noncontributory. SOCIAL HISTORY: No tobacco, alcohol or drug use. She receives 24-hour home health assistance in her home. REVIEW OF SYSTEMS: Negative unless documented in the HPI and all systems were reviewed and are negat ravinder. PHYSICAL EXAMINATION: VITAL SIGNS: Include blood pressure 140/77, pulse 99, respirations 22, temperature 97.8, O2 sat when I was in the room was 93% on 3 liters. GENERAL: She was alert and oriented x4 and speaking in paragraphs. Generally, she was quite anxious , but in no visible significant respiratory distress. HEENT: Eyes, no icterus or injection. Pupils equal, round, reactive to light. Moist mucous membran es with what looks like a palatoplasty in the past. TMs are both pearly frederick with normal light cone bilaterally. No rhinorrhea. Patent nares. HEART: Tachycardic, regular. LUNGS: She has minimal peripheral edema. She has diffuse inspiratory and expiratory wheezing, prolo nged expiratory phase. GASTROINTESTINAL: Bowel sounds positive, nontender in palpation. ABDOMEN: She is morbidly obese. MUSCULOSKELETAL: Difficult to assess for any effusion because of her obesity with no obvious deformi ty or contraction. SKIN: Warm and dry without obvious rash or lesion. We will turn her room and get her upstairs. NEUROLOGIC: Cranial nerves II-XII intact and symmetric. Motor is 5/5 in the upper and lower extremi ties. Sensation intact to light touch. PSYCHIATRIC: Alert and oriented x4. Again, feels very anxious and is asking for Ativan. Also, of n ote is that she is markedly tender at the costochondral junction on the right side. LABORATORY DATA: Include white count of 14.7, hemoglobin 11.1 with MCV of 77.9, platelets 323. Coag s are normal. Blood gas has been repeated both with pH around 7.3 and a CO2 in the 80s, O2 has been 8.5 and subsequently 8.2. CMP with sodium of 143, potassium 3.6, chloride 94, bicarbonate 37, BUN 29 , creatinine 0.94 with a GFR of 73, glucose 116, calcium 8.4, total bilirubin 0.4, AST 12, ALT 48, al kaline phosphatase 62, CK of 24, BNP less than 10, troponin less than 0.01. X-ray is a poor film leo ears to be mid inspiratory but is read as not having obvious infiltrates or effusions. EKG is normal sinus rhythm without ST or T-wave changes. ASSESSMENT AND PLAN: This is a 61-year-old female with acute on chronic hypoxic hypercapnic respirat ory failure secondary to acute asthma exacerbation. Her flu is negative. She has not had a fever an d besides the congestion, no body aches, or other symptoms consistent with the flu. We will go ahead and cover her with azithromycin, prednisone and schedule DuoNebs, admit her to the IMCU. We will re peat a blood gas as it persistently elevated as I watched her go to sleep and desaturate to the 80s, we will go ahead and start her on BiPAP and consult Pulmonology in the morning. She has no signs of hypovolemia, so we will order echocardiogram at this time. Other than this, we will manage her comor bidities and iron studies if they have been done recently and continue her home medications. She was receiving quite a bit of Ativan, it sounds like 2 mg q.4-6 h. at [place], and she is quite anxious no w with some concern that she may have been habituated there to a higher dose, so will monitor closely for any signs of withdrawal. Deep venous thrombosis prophylaxis with Lovenox. Gastrointestinal pro phylaxis with Pepcid.
[2017-10-02] MEDS ORDERED: methylPREDNISolone Sod Succ/PF 125 MG/2 ML VIAL IVP SCH (09:00)
[2017-10-02] MEDS ORDERED: Non-Formulary Item 1 EACH (Budesonide-Formoterol [Symbicort 160-4.5] 2 PUFF) INH SCH (09:00)
[2017-10-02] MEDS: Potassium Chloride 20 MEQ TAB PO SCH (09:34)
[2017-10-02] MEDS: Cyanocobalamin (Vitamin B-12) 1,000 MCG TAB PO SCH (09:34)
[2017-10-02] MEDS: Docusate 100 MG CAP PO SCH ×2 (09:34→21:38)
[2017-10-02] MEDS: Enoxaparin Sodium 40 MG/0.4 ML SYRINGE SC SCH (09:34)
[2017-10-02] MEDS: Lorazepam 2 MG/ML VIAL SLOW IVP PRN (11:21)
[2017-10-02] MEDS: Mometasone/Formoterol 120 PUFF INHALER INH SCH ×2 (12:14→21:23)
--- NOTE | 2017-10-02 19:32 | CON ---
DATE OF CONSULTATION: 10/02/2017 Fanta Mayorga is a morbidly obese 61-year-old female, patient of Dr. Curran, wh o came in last night with shortness of breath, tightness in the chest. She was hypoxic last night. When the nurse called me and said she was still having problem with oxygenation, I told her to put he r back on a CPAP. She has a #[address] She has no fever or chills. Extensive history from previous medical records is well outlined. She tells me that at home she has been having no fever or chills. Her chest x-ray on admission shows basically no new infiltrates, haziness from excessive chest wall f at. She is clearly having major anxiety issues at this time. PAST MEDICAL HISTORY: Sleep apnea, COPD, major anxiety, morbid obesity. PREVIOUS SURGERIES: Trach, gallbladder, , hernia, mastectomy. HOME MEDICATIONS: Has included very long list including Xanax 0.5, albuterol, Symbicort, Lexapro 10, hydrocodone, Ativan, Protonix, Ambien, Urispas, hydroxyzine, guaifenesin. Since admission, she was started on steroids, neb treatments, Lasix. ALLERGIES: To numerous medications including CIPRO, LEVAQUIN, SINGULAIR, SULFA, IODINE, SHELLFISH. REVIEW OF SYSTEMS: Otherwise unremarkable. PHYSICAL EXAMINATION: GENERAL: She is awake, alert, responsive, very anxious. VITAL SIGNS: Sats are 90%, pulse 100, blood pressure 130/80. CHEST: Decreased breath sounds. I heard no wheezing. CARDIAC: Sinus tachycardia. ABDOMEN: Massive. EXTREMITIES: No edema. IMAGING: X-ray shows no acute infiltrates noted. LABORATORY DATA: Her lab otherwise shows white count 39, H&H 11 and 39, platelet count 261, pO2 was 48 on admission, pCO2 86, pH 7.32, 28% trach collar. Creatinine is normal. IMPRESSION: Acute on chronic respiratory failure, morbid obesity, chronic obstructive pulmonary dise ase, asthma, major anxiety, stasis. I agree with steroids and neb treatments. I will notify Dr. Curran. This is a consultation note with 70 minutes of my time, 50% was spent direct patient care.
[2017-10-02] MEDS ORDERED: Betamethasone 0.1% Cream 15 GM TUBE TOP PRN (21:00)
[2017-10-02] MEDS: Azithromycin 500 MG in Sodium Chloride 0.9% 250 ML 250 ML IVPB SCH (22:31)
[2017-10-03] MEDS: diphenhydrAMINE 25 MG CAP PO PRN (00:09)
[2017-10-03] MEDS: Albuterol Sulfate 2.5 mg/3 ml Neb NEB PRN ×3 (01:03→23:41)
[2017-10-03] MEDS: Lorazepam 2 MG/ML VIAL SLOW IVP PRN ×3 (02:01→21:19)
[2017-10-03] MEDS ORDERED: Labetalol HCl 100 MG/20 ML VIAL SLOW IVP PRN (04:09)
[2017-10-03 05:06] LABS: #Lymphocytes 0.6 thou/uL (1.20-3.40); #Monocytes 0.3 thou/uL (0.11-0.59); #Neutrophils 7.1 thou/uL (1.40-6.50); %Basophils 0.6 % (0.0-1.0); %Eosinophils 0.2 % (0.0-10.0); %Lymphocytes 7.7 % (21.0-51.0); %Monocytes 3.6 % (0.0-10.0); Hemoglobin 10.7 g/dL (12.0-16.0); Mean Corpuscular HGB CONC 30.4 g/dL (32.0-36.0); Mean Corpuscular Hemoglobin 24.1 pg (27.0-31.0); Mean Corpuscular Volume 79.1 fl (81.0-99.0); Mean Platelet Volume 9.2 fL (7.4-10.4); Platelet Count 278 thou/uL (130-400); RBC Distribution Width 18.2 % (11.5-14.5); Red Blood Cell (RBC) Count 4.43 mill/uL (4.20-5.40); White Blood Cell (WBC) Count 8.1 thou/uL (4.8-10.8)
[2017-10-03 05:15] LABS: Anion Gap 10 mmol/L (10-20); BUN (Urea Nitrogen) 22 mg/dL (9.8-20.1); Calc. Creatinine Clearance 164 mL/min (70-130); Calcium 8.9 mg/dL (7.8-10.44); Carbon Dioxide 37 mmol/L (22-29); Chloride 97 mmol/L (98-107); Estimated GFR-MDRD 85; Glucose 192 mg/dL (70-105); Potassium 3.8 mmol/L (3.5-5.1); Sodium 140 mmol/L (136-145)
[2017-10-03] MEDS: Ketorolac Tromethamine 30 MG/ML VIAL IVP PRN (05:19)
[2017-10-03] MEDS: Sodium Chloride 0.9% 1,000 ML IV SCH (05:55)
--- NOTE | 2017-10-03 05:59 | PDOC.FM ---
- Subjective Subjective: Fanta states she had a rough night. Difficulty sleeping due to steroids, anxiety out of control. Wants fluids stopped because she is afraid of getting bloated and gaining weight back that she has lost. Desires to be transferred to [place] where the doctor knows her. - Objective MAR Reviewed: Yes Vital Signs & Weight: Vital Signs (12 hours) Temp Pulse Resp BP BP Pulse Ox 10/03/17 05:43 95 25 H 97 10/03/17 04:22 82 220/98 H 10/03/17 03:35 98.3 F 96 28 H 208/88 H 98 10/03/17 03:10 97 21 H 100 10/03/17 01:03 100 23 H 100 10/03/17 00:30 99 F 91 16 179/81 H 100 10/02/17 23:16 99 10/02/17 23:15 99 17 100 10/02/17 20:25 99 18 100 10/02/17 20:00 98.0 F 100 18 99 10/02/17 19:49 98 F 99 18 174/85 H 100 Weight Weight 143.834 kg I&O: 10/01/17 10/02/17 10/03/17 06:59 06:59 06:59 Intake Total 250 1100 Balance 250 1100 Result Diagrams: 10/03/17 04:37 10/03/17 04:37 EKG Reviewed by me: Yes <Tyshawn Jo - Last Filed: 10/03/17 07:09> - Objective Vital Signs & Weight: Vital Signs (12 hours) Temp Pulse Resp BP BP Pulse Ox 10/03/17 11:17 98.5 F 94 20 209/90 H 99 10/03/17 10:35 93 99 10/03/17 10:33 90 21 H 99 10/03/17 07:56 98.7 F 87 20 100 10/03/17 07:14 98.7 F 87 20 175/103 H 100 10/03/17 06:00 95 20 169/75 H 98 10/03/17 05:43 95 25 H 97 10/03/17 04:35 98 20 173/73 H 98 10/03/17 04:22 82 220/98 H 10/03/17 03:35 98.3 F 96 28 H 208/88 H 98 10/03/17 03:10 97 21 H 100 10/03/17 01:03 100 23 H 100 10/03/17 00:30 99 F 91 16 179/81 H 100 Weight Weight 144.016 kg I&O: 10/02/17 10/03/17 10/04/17 06:59 06:59 06:59 Intake Total 250 1690 Balance 250 1690 Result Diagrams: 10/03/17 04:37 10/03/17 04:37 <Bruce Montesinos - Last Filed: 10/03/17 11:37> Phys Exam - Physical Examination Constitutional: NAD morbidly obese HEENT: PERRLA, oral pharynx no lesions Neck: supple, full ROM Respiratory: clear to auscultation bilateral occasional exp wheeze Cardiovascular: RRR, no significant murmur Gastrointestinal: soft, non-tender, positive bowel sounds Musculoskeletal: no edema, pulses present Neurological: non-focal, normal sensation, moves all 4 limbs Psychiatric: A&O x 3 Deviation from normal: agitated <Tyshawn Jo - Last Filed: 10/03/17 07:09> Dx/Plan (1) Acute on chronic respiratory failure with hypoxia and hypercapnia Code(s): J96.21 - ACUTE AND CHRONIC RESPIRATORY FAILURE WITH HYPOXIA; J96.22 - ACUTE AND CHRONIC RESPIRATORY FAILURE WITH HYPERCAPNIA Status: Acute Plan: Continue Bipap this morning. IPAP increased yesterday from 7 to 13. Oxygen sats much improved from admission, follow ABGs. Expect hypercapnia and hypoxia to begin improving. Appreciate pulmonology recs. (2) Asthma Code(s): J45.909 - UNSPECIFIED ASTHMA, UNCOMPLICATED Status: Chronic Plan: Continue nebs. Will discuss possibility of stopping steroids soon. (3) GLORIA (obstructive sleep apnea) Code(s): G47.33 - OBSTRUCTIVE SLEEP APNEA (ADULT) (PEDIATRIC) Status: Chronic (4) Morbid obesity Code(s): E66.01 - MORBID (SEVERE) OBESITY DUE TO EXCESS CALORIES Status: Chronic Plan: Weight has improved dramatically over the past year. (5) Anxiety Code(s): F41.9 - ANXIETY DISORDER, UNSPECIFIED Status: Acute Plan: Will increase ativan dose. <Tyshawn Jo - Last Filed: 10/03/17 07:09> Attending Addendum - Attending Addendum I personally evaluated the patient and discussed the management with Dr. Jo. I agree with and repeated the History, Examination, Assessment and Plan documented above with any addition or exceptions noted below. Ms. Mayorga is quite upset this morning. She wants the steroids and fluids stopped. She thinks they are causing her difficulty sleeping and high blood pressure. She denies cp/sob/n/v/f/c or headache this morning. A on C hypox/hypercap RF in setting of trach dependency, GLORIA/pickwickian/asthma - continue bipap and nebs, will d/w Dr. Elizondo concerning steroids. She apparently struggles quite a bit off BiPap. HTN - labetalol/hydralazine PRN and being controller meds DVT/gi ppx. <Bruce Montesinos - Last Filed: 10/03/17 11:37>
[2017-10-03] MEDS ORDERED: Sodium Chloride 0.9% 1,000 ML IV SCH (07:52)
[2017-10-03] MEDS: Potassium Chloride 20 MEQ TAB PO SCH (09:13)
[2017-10-03] MEDS: Cyanocobalamin (Vitamin B-12) 1,000 MCG TAB PO SCH (09:13)
[2017-10-03] MEDS: Docusate 100 MG CAP PO SCH ×2 (09:13→21:24)
[2017-10-03] MEDS: Enoxaparin Sodium 40 MG/0.4 ML SYRINGE SC SCH (09:13)
[2017-10-03] MEDS: Mometasone/Formoterol 120 PUFF INHALER INH SCH ×2 (10:36→19:48)
--- NOTE | 2017-10-03 15:38 | PRG ---
DATE OF SERVICE: 10/03/2017 SUBJECTIVE: Fanta Mayorga is a morbidly obese female, who is continuing complaining of difficult y breathing. She has cuffless 6 Bivona, and in spite of being on bilevel, continues problema, contin ue anxiety, continue complaining of difficulty breathing, large mucus plugs that she said were coming out of her trach. They decided to switch over to cuffed tube, therefore #6 was placed in. Thereafter, diagnostic thera peutic bronchoscopy was performed using an adaptor. Distal trachea was visualized, which was narrowe d. There was a large mucus plug sitting in the left main stem bronchus, which was suctioned and lava ged until clear. The left lung was lavaged with normal saline about 40 mL. The right lung was inspe cted thereafter and this had less amount of pus and plugs in the bases, all suctioned and lavaged unt il clear. She is now connected to a similar bilevel with a backup rate. Otherwise, we will continue steroids, neb treatments, antibiotics. LABORATORY DATA: White count 8000, H and H 10 and 30, platelet count is normal. X-ray was ordered. OBJECTIVE: VITAL SIGNS: Otherwise, sats 99, blood pressure is elevated at 209/90, temperature is 98. CHEST: Decreased breath sounds with minimal wheezing. CARDIAC: Normal S1, S2. No gallops. ABDOMEN: Soft. No masses. IMPRESSION: Morbid obesity, sleep apnea, bronchitis, retained secretions, major anxiety. Continue steroids, neb treatments, continue BiPAP. We will follow.
[2017-10-03] MEDS: Azithromycin 500 MG in Sodium Chloride 0.9% 250 ML 250 ML IVPB SCH (22:55)
[2017-10-04] MEDS ORDERED: diphenhydrAMINE 50 MG/ML VIAL IVP SCH (00:01)
[2017-10-04 04:01] LABS: #Basophils 0.1 thou/uL (0.0-0.2); #Eosinphils 0.1 thou/uL (0.0-0.7); #Lymphocytes 1.7 thou/uL (1.20-3.40); #Monocytes 0.8 thou/uL (0.11-0.59); #Neutrophils 6.5 thou/uL (1.40-6.50); %Basophils 0.5 % (0.0-1.0); %Eosinophils 0.6 % (0.0-10.0); %Lymphocytes 18.7 % (21.0-51.0); %Monocytes 8.4 % (0.0-10.0); %Neutrophils 71.8 % (42.0-75.0); Mean Corpuscular HGB CONC 30.3 g/dL (32.0-36.0); Mean Corpuscular Volume 79.1 fl (81.0-99.0); Mean Platelet Volume 8.9 fL (7.4-10.4); Platelet Count 229 thou/uL (130-400); RBC Distribution Width 18.1 % (11.5-14.5); Red Blood Cell (RBC) Count 4.17 mill/uL (4.20-5.40); White Blood Cell (WBC) Count 9.1 thou/uL (4.8-10.8)
[2017-10-04 04:14] LABS: BUN (Urea Nitrogen) 23 mg/dL (9.8-20.1); Calc. Creatinine Clearance 146 mL/min (70-130); Calcium 8.4 mg/dL (7.8-10.44); Estimated GFR-MDRD 74; Glucose 110 mg/dL (70-105)
[2017-10-04] MEDS: Albuterol Sulfate 2.5 mg/3 ml Neb NEB PRN (04:16)
[2017-10-04 04:26] LABS: Chloride 96 mmol/L (98-107); Potassium 3.2 mmol/L (3.5-5.1); Sodium 141 mmol/L (136-145)
[2017-10-04 04:29] LABS: Anion Gap 13 mmol/L (10-20); Carbon Dioxide 35 mmol/L (22-29)
[2017-10-04] MEDS: Lorazepam 2 MG/ML VIAL SLOW IVP PRN ×2 (07:13→16:45)
[2017-10-04] MEDS: Mometasone/Formoterol 120 PUFF INHALER INH SCH ×2 (08:27→20:09)
--- NOTE | 2017-10-04 08:39 | PDOC.PULCC ---
CCU Progress Note: Subj/Obj - Subjective Date: 10/04/17 Time: 08:37 Subjective: Feels better - ROS Review of Systems: congestion, shortness of breath - Objective Allergies/Adverse Reactions: Allergies Allergy/AdvReac Type Severity Reaction Status Date / Time influenza virus vaccine ts Allergy Severe Anxiety Verified 06/25/17 14:22 2013- [From Fluarix [id number] (PF)] nalbuphine Allergy Severe Anaphylaxis Verified 06/25/17 14:24 ciprofloxacin [From Cipro] Allergy Verified 08/31/17 03:01 corn Allergy Verified 06/25/17 14:24 levofloxacin Allergy Verified 08/17/17 16:51 montelukast [From Singulair] Allergy Hives Verified 08/17/17 16:51 peas Allergy Verified 06/25/17 14:24 Sulfa (Sulfonamide Allergy Short of Verified 06/25/17 14:25 Antibiotics) Breath iodine AdvReac Severe Anaphylaxis Verified 04/24/17 22:50 Latex, Natural Rubber AdvReac Severe Short of Verified 04/24/17 22:50 Breath shellfish derived AdvReac Severe Anaphylaxis Verified 06/25/17 14:23 Medications: Current Medications Albuterol Sulfate (Ventolin) 2.5 mg NEB Q2H PRN PRN Reason: SOB &/or Wheezing Last Admin: 10/04/17 04:16 Dose: 2.5 mg Albuterol/Ipratropium (Duoneb) 3 ml NEB [id number] [facility] Last Admin: 10/04/17 08:22 Dose: 3 ml Betamethasone Valerate (Valisone 0.1% Cream) 0 gm TOP BID PRN PRN Reason: Topical Irritations Cyanocobalamin (Vitamin B-12) 1,000 mcg PO DAILY [facility] Last Admin: 10/03/17 09:13 Dose: 1,000 mcg Diphenhydramine HCl (Benadryl) 25 mg PO Q4H PRN PRN Reason: Itching Last Admin: 10/03/17 00:09 Dose: 25 mg Diphenhydramine HCl (Benadryl) 25 mg IVP WILLCALL [facility] Stop: 10/04/17 23:59 Last Admin: 10/04/17 00:23 Dose: 25 mg Docusate Sodium (Colace) 100 mg PO BID [facility] Last Admin: 10/03/17 21:24 Dose: Not Given Enoxaparin Sodium (Lovenox) 40 mg SC 0900 [facility] Last Admin: 10/03/17 09:13 Dose: 40 mg Furosemide (Lasix) 40 mg PO DAILYPRN PRN PRN Reason: Edema Azithromycin 500 mg/ Sodium (Chloride) 250 mls @ 250 mls/hr IVPB Q24HR [facility] Stop: 10/05/17 22:59 Last Admin: 10/03/17 22:55 Dose: 250 mls Sodium Chloride (Normal Saline 0.9%) 1,000 mls @ 0 mls/hr IV .Q0M JAI PRN Reason: KVO Ketorolac Tromethamine (Toradol) 15 mg IVP Q6H PRN PRN Reason: Pain Stop: 10/07/17 04:07 Last Admin: 10/03/17 05:19 Dose: 15 mg Labetalol HCl (Normodyne) 20 mg SLOW IVP Q4H PRN PRN Reason: SBP Greater Than 180 Last Admin: 10/03/17 04:22 Dose: 20 mg Loratadine (Claritin) 10 mg PO HSPRN PRN PRN Reason: Allergies Lorazepam (Ativan) 1 mg SLOW IVP Q8HR PRN PRN Reason: Anxiety/Agitation Last Admin: 10/04/17 07:13 Dose: 1 mg Methylprednisolone Sodium Succinate (Solu-Medrol) 40 mg IVP BID [facility] Last Admin: 10/03/17 21:24 Dose: Not Given Mometasone Furoate/Formoterol Fumar (Dulera 200 Mcg/5 Mcg Inhaler) 2 puff INH BID-RT [facility] Last Admin: 10/04/17 08:27 Dose: 2 puff Nystatin (Mycostatin Powder) 1 gm TOP BIDPRN PRN PRN Reason: Topical Irritations Ondansetron HCl (Zofran Odt) 4 mg PO Q6H PRN PRN Reason: Nausea/Vomiting Pantoprazole Sodium (Protonix) 40 mg PO DAILY [facility] Last Admin: 10/03/17 09:13 Dose: 40 mg Polyethylene Glycol (Miralax) 17 gm PO DAILYPRN PRN PRN Reason: Constipation Potassium Chloride (K-Dur) 20 meq PO DAILY [facility] Last Admin: 10/03/17 09:13 Dose: 20 meq Promethazine HCl (Phenergan) 25 mg PO Q6H PRN PRN Reason: Nausea Senna (Senokot) 2 tab PO HSPRN PRN PRN Reason: Constipation Sodium Chloride (Flush - Normal Saline) 10 ml IVF Q12HR [facility] Last Admin: 10/03/17 21:19 Dose: 10 ml Sodium Chloride (Flush - Normal Saline) 10 ml IVF PRN PRN PRN Reason: Saline Flush Last Admin: 10/02/17 04:37 Dose: 10 ml MAR Reviewed: Yes Vital Signs and I&O: Vital Signs Temp 99.8 F H 10/04/17 07:25 Pulse 102 H 10/04/17 08:24 Resp 29 H 10/04/17 08:22 BP 147/70 H 10/04/17 08:24 Pulse Ox 92 L 10/04/17 08:22 Intake & Output 10/03/17 10/04/17 10/04/17 18:59 06:59 18:59 Intake Total 600 Balance 600 Weight 315 lb 9 oz Intake: Intake, IV Amount 300 Oral 300 Other: Voiding Method Diaper Diaper # Urine Diapers 2 Vent Setting: CPAP 5 PS 10 Spontaneous Breathing Test: done CCU Progress Note: Exam - Physical Exam Constitutional: NAD HEENT: PERRLA, sclera anicteric Neck: no nodes, no JVD Cardiovascular: RRR Respiratory: clear to auscultation bilaterally Gastrointestinal: soft, non-tender Musculoskeletal: edema present Neurological: non-focal, moves all 4 limbs Psychiatric: normal affect, A&O x 3 Skin: no rash - Labs Result Diagrams: 10/04/17 03:40 10/04/17 03:40 Lab results: Laboratory Results - last 24 hr 10/04/17 10/04/17 03:40 03:40 WBC 9.1 RBC 4.17 L Hgb 10.0 L Hct 32.9 L MCV 79.1 L MCH 24.0 L MCHC 30.3 L RDW 18.1 H Plt Count 229 MPV 8.9 Neutrophils % 71.8 Neutrophils % (Manual) Not Reportable Lymphocytes % 18.7 L Monocytes % 8.4 Eosinophils % 0.6 Basophils % 0.5 Neutrophils # 6.5 Lymphocytes # 1.7 Monocytes # 0.8 H Eosinophils # 0.1 Basophils # 0.1 Sodium 141 Potassium 3.2 L Chloride 96 L Carbon Dioxide 35 H Anion Gap 13 BUN 23 H Creatinine 0.93 Estimated GFR (MDRD) 74 Glucose 110 H Calcium 8.4 CCU Progress Note: A/P - Problems (1) Asthma Current Visit: Yes Status: Acute Code(s): J45.909 - UNSPECIFIED ASTHMA, UNCOMPLICATED (2) Acute and chronic respiratory failure Current Visit: No Status: Acute Code(s): J96.20 - ACUTE AND CHR RESP FAILURE , UNSP W HYPOXIA OR HYPERCAPNIA Qualifiers: Respiratory failure complication: hypoxia and hypercapnia Qualified Code(s) : J96.21 - Acute and chronic respiratory failure with hypoxia; J96.22 - Acute and chronic respiratory failure with hypercapnia; J96.22 - Acute and chronic respiratory failure with hypercapnia; J96.22 - Acute and chronic respiratory failure with hypercapnia - Plan Plan: Pt has been placed on CPAP/PS Hopefully on TC later today Continue steroids and nebs
[2017-10-04] MEDS: Enoxaparin Sodium 40 MG/0.4 ML SYRINGE SC SCH (09:10)
[2017-10-04] MEDS: Cyanocobalamin (Vitamin B-12) 1,000 MCG TAB PO SCH (09:10)
[2017-10-04] MEDS: Potassium Chloride 20 MEQ TAB PO SCH (09:10)
[2017-10-04] MEDS: Docusate 100 MG CAP PO SCH ×2 (09:10→20:30)
[2017-10-04] MEDS: Ketorolac Tromethamine 30 MG/ML VIAL IVP PRN (10:40)
--- NOTE | 2017-10-04 12:22 | PDOC.FM ---
- Subjective Subjective: Patient reports doing about the same overnight. Complains that she has not been getting any sleep, however she was asleep overnight when nurse administered a medication. Also refused to take steroids because she reports it makes her "crazy." - Objective MAR Reviewed: Yes Vital Signs & Weight: Vital Signs (12 hours) Temp Pulse Resp BP BP Pulse Ox 10/04/17 10:25 110 H 156/81 H 10/04/17 10:21 102 H 24 H 94 L 10/04/17 08:24 102 H 147/70 H 10/04/17 08:22 105 H 29 H 92 L 10/04/17 08:00 99.8 F H 110 H 20 97 10/04/17 07:25 99.8 F H 97 20 150/72 H 95 10/04/17 05:21 100 10/04/17 04:36 97.8 F 107 H 20 127/69 96 10/04/17 04:30 96 10/04/17 04:16 107 H 20 96 10/04/17 01:14 101 H 22 H 95 10/04/17 00:23 97.6 F 112 H 22 H 123/80 93 L Weight Weight 143.137 kg I&O: 10/03/17 10/04/17 10/05/17 06:59 06:59 06:59 Intake Total 1690 600 720 Balance 1690 600 720 Result Diagrams: 10/04/17 03:40 10/04/17 03:40 <Chinedu Maxwell - Last Filed: 10/04/17 12:19> - Objective Vital Signs & Weight: Vital Signs (12 hours) Temp Pulse Pulse Resp BP BP BP 10/04/17 15:35 98.7 F 102 H 20 143/66 H 10/04/17 14:04 102 H 162/72 H 10/04/17 14:03 102 H 22 H 10/04/17 11:52 97.9 F 104 H 18 144/70 H 10/04/17 10:25 110 H 156/81 H 10/04/17 10:21 102 H 24 H 10/04/17 08:24 102 H 147/70 H 10/04/17 08:22 105 H 29 H 10/04/17 08:15 102 H 147/70 H 10/04/17 08:00 99.8 F H 110 H 20 10/04/17 07:25 99.8 F H 97 20 150/72 H 10/04/17 05:21 Pulse Ox Pulse Ox 10/04/17 15:35 97 10/04/17 14:04 10/04/17 14:03 97 10/04/17 11:52 94 L 10/04/17 10:25 10/04/17 10:21 94 L 10/04/17 08:24 10/04/17 08:22 92 L 10/04/17 08:15 91 L 10/04/17 08:00 97 10/04/17 07:25 95 10/04/17 05:21 100 Weight Weight 143.137 kg I&O: 10/03/17 10/04/17 10/05/17 06:59 06:59 06:59 Intake Total 1690 600 720 Balance 1690 600 720 Result Diagrams: 10/04/17 03:40 10/04/17 03:40 <Kendra Nicholson - Last Filed: 10/04/17 16:58> Phys Exam - Physical Examination Constitutional: NAD obese HEENT: PERRLA, moist MMs Neck: no JVD, full ROM diffuse mild expiratory wheezing Cardiovascular: RRR, no significant murmur Gastrointestinal: soft, positive bowel sounds Musculoskeletal: pulses present Neurological: normal sensation, moves all 4 limbs Psychiatric: A&O x 3 <Chinedu Maxwell - Last Filed: 10/04/17 12:19> Dx/Plan (1) Acute on chronic respiratory failure with hypoxia and hypercapnia Code(s): J96.21 - ACUTE AND CHRONIC RESPIRATORY FAILURE WITH HYPOXIA; J96.22 - ACUTE AND CHRONIC RESPIRATORY FAILURE WITH HYPERCAPNIA Status: Acute Plan: weaned down to cpap, will continue to wean down as tolerated Continues to refuse steroids. Will attempt to discuss with Pulm (2) Asthma Code(s): J45.909 - UNSPECIFIED ASTHMA, UNCOMPLICATED Status: Acute (3) Anxiety Code(s): F41.9 - ANXIETY DISORDER, UNSPECIFIED Status: Chronic (4) Morbid obesity Code(s): E66.01 - MORBID (SEVERE) OBESITY DUE TO EXCESS CALORIES Status: Chronic (5) GLORIA (obstructive sleep apnea) Code(s): G47.33 - OBSTRUCTIVE SLEEP APNEA (ADULT) (PEDIATRIC) Status: Chronic <Chinedu Maxwell - Last Filed: 10/04/17 12:19> Attending Addendum - Attending Addendum I personally evaluated the patient and discussed the management with Dr. Maxwell I agree with the History, Examination, Assessment and Plan documented above with any addition or exceptions noted below- Patient on vent via trach - on CPAP. Refusing steroids per nursing. Afebrile VSS. A/P: 1) Acute on chronic resp failure- continue current management with nebs; wean vent as tolerated per pulmonary. 2) Severe anxiety- continue benzos. <Kendra Nicholson - Last Filed: 10/04/17 16:58>
[2017-10-04] MEDS ORDERED: diphenhydrAMINE 50 MG/ML VIAL IVP PRN (12:28)
--- NOTE | 2017-10-04 17:54 | EKG ---
Test Reason : Blood Pressure : / mmHG Vent. Rate : 114 BPM Atrial Rate : 114 BPM P-R Int : 118 ms QRS Dur : 082 ms QT Int : 350 ms P-R-T Axes : 058 018 071 degrees QTc Int : 482 ms Sinus tachycardia Otherwise normal ECG When compared with ECG of 02-OCT-2017 01:41, (Unconfirmed) No significant change was found Confirmed by MULU ARECHIGA, SFatoumata ([id number]) on 10/04/2017 5:53:35 PM Referred By: JOSUE Confirmed By:DR. Goldy HARDWICK MD
[2017-10-04 18:56] LABS: Troponin I 0.026 ng/mL (< 0.028)
[2017-10-04] MEDS: diphenhydrAMINE 25 MG CAP PO PRN (20:30)
[2017-10-04] MEDS: Azithromycin 500 MG in Sodium Chloride 0.9% 250 ML 250 ML IVPB SCH (22:26)
[2017-10-05] MEDS: Lorazepam 2 MG/ML VIAL SLOW IVP PRN ×2 (00:34→16:52)
[2017-10-05 05:30] LABS: #Lymphocytes 0.4 thou/uL (1.20-3.40); #Monocytes 0.1 thou/uL (0.11-0.59); #Neutrophils 5.4 thou/uL (1.40-6.50); %Eosinophils 0.1 % (0.0-10.0); %Lymphocytes 7.4 % (21.0-51.0); %Monocytes 1.4 % (0.0-10.0); %Neutrophils 91.1 % (42.0-75.0); Hemoglobin 10.8 g/dL (12.0-16.0); Mean Corpuscular HGB CONC 30.3 g/dL (32.0-36.0); Mean Corpuscular Hemoglobin 23.8 pg (27.0-31.0); Mean Corpuscular Volume 78.6 fl (81.0-99.0); Mean Platelet Volume 9.7 fL (7.4-10.4); Platelet Count 219 thou/uL (130-400); RBC Distribution Width 18.1 % (11.5-14.5); Red Blood Cell (RBC) Count 4.54 mill/uL (4.20-5.40); White Blood Cell (WBC) Count 5.9 thou/uL (4.8-10.8)
[2017-10-05 05:49] LABS: Anion Gap 14 mmol/L (10-20); BUN (Urea Nitrogen) 16 mg/dL (9.8-20.1); Calc. Creatinine Clearance 165 mL/min (70-130); Calcium 8.4 mg/dL (7.8-10.44); Carbon Dioxide 32 mmol/L (22-29); Chloride 97 mmol/L (98-107); Estimated GFR-MDRD 89; Glucose 196 mg/dL (70-105); Sodium 139 mmol/L (136-145)
[2017-10-05] MEDS: Enoxaparin Sodium 40 MG/0.4 ML SYRINGE SC SCH (09:39)
[2017-10-05] MEDS: Docusate 100 MG CAP PO SCH ×2 (09:39→21:38)
[2017-10-05] MEDS: Potassium Chloride 20 MEQ TAB PO SCH (09:40)
[2017-10-05] MEDS: Cyanocobalamin (Vitamin B-12) 1,000 MCG TAB PO SCH (09:40)
--- NOTE | 2017-10-05 09:54 | PRG ---
DATE OF SERVICE: 10/05/2017 This is 35 minutes critical care time. SUBJECTIVE: She remains intubated on mechanical ventilation through her tracheostomy tube. She says she is having cough and some chest pain when she coughs. PHYSICAL EXAMINATION: VITAL SIGNS: Temperature 96.8, pulse 104, blood pressure 144/77, O2 sat 97%. HEENT: Unremarkable. NECK: No JVD. LUNGS: Coarse rhonchi bilaterally. CARDIOVASCULAR: S1, S2 regular. ABDOMEN: Soft, obese, nontender. EXTREMITIES: Trace edema throughout. LABORATORY DATA: Sodium 139, potassium 4, chloride 97, CO2 32, BUN 16, creatinine 0.8, glucose 196. White blood cell count 5.9, hematocrit 35.7, platelet count 219. ASSESSMENT: 1. Chronic respiratory failure with an acute component. 2. Chronic obstructive pulmonary disease/asthma. 3. Probably concurrent diastolic heart failure. PLAN: 1. Change to CPAP pressure support ventilation. 2. Try to diurese. 3. Continue the antibiotics. 4. She does not like Solu-Medrol, so I will try her on Decadron to see if that helps her. 5. Long-term prognosis is poor.
--- NOTE | 2017-10-05 11:40 | PDOC.FM ---
- Subjective Subjective: Patient reports difficulty breathing is about the same as yesterday. CP yesterday unremarkable with EKG sinus tach and trops negative. Continues to have anxiety and reports she is scared and wants to go home. Overnight nurse states patient was able to get a full nights rest. - Objective MAR Reviewed: Yes Vital Signs & Weight: Vital Signs (12 hours) Temp Pulse Resp BP BP Pulse Ox 10/05/17 09:14 104 H 144/77 H 10/05/17 09:12 106 H 24 H 97 10/05/17 08:27 96.8 F L 94 24 H 137/64 99 10/05/17 08:14 98.6 F 102 H 22 H 98 10/05/17 04:05 98.6 F 102 H 22 H 164/62 H 99 10/05/17 03:04 105 H 10/05/17 02:05 103 H 25 H 100 10/05/17 02:04 102 H 18 140/65 98 10/05/17 01:58 104 H 10/05/17 00:14 98.8 F 109 H 22 H 168/89 H 93 L Weight Weight 139.848 kg I&O: 10/04/17 10/05/17 10/06/17 06:59 06:59 06:59 Intake Total 600 1240 Balance 600 1240 Result Diagrams: 10/05/17 05:10 10/05/17 05:10 <Chinedu Maxwell - Last Filed: 10/05/17 11:38> - Objective Vital Signs & Weight: Vital Signs (12 hours) Temp Pulse Resp BP BP Pulse Ox 10/05/17 12:00 97.4 F L 100 24 H 145/70 H 100 10/05/17 11:53 100 145/70 H 10/05/17 11:51 102 H 19 99 10/05/17 09:14 104 H 144/77 H 10/05/17 09:12 106 H 24 H 97 10/05/17 08:27 96.8 F L 94 24 H 137/64 99 10/05/17 08:14 98.6 F 102 H 22 H 98 10/05/17 04:05 98.6 F 102 H 22 H 164/62 H 99 10/05/17 03:04 105 H 10/05/17 02:05 103 H 25 H 100 10/05/17 02:04 102 H 18 140/65 98 10/05/17 01:58 104 H Weight Weight 139.848 kg I&O: 10/04/17 10/05/17 10/06/17 06:59 06:59 06:59 Intake Total 600 1240 Balance 600 1240 Result Diagrams: 10/05/17 05:10 10/05/17 05:10 <Kira Gibson Lory - Last Filed: 10/05/17 13:15> Phys Exam - Physical Examination Constitutional: NAD morbidly obese HEENT: PERRLA, moist MMs Neck: full ROM mild diffuse wheezing Cardiovascular: RRR, no significant murmur Gastrointestinal: soft, positive bowel sounds trace edema in LE Neurological: non-focal, normal sensation Deviation from normal: anxious <Chinedu Maxwell - Last Filed: 10/05/17 11:38> Dx/Plan (1) Acute on chronic respiratory failure with hypoxia and hypercapnia Code(s): J96.21 - ACUTE AND CHRONIC RESPIRATORY FAILURE WITH HYPOXIA; J96.22 - ACUTE AND CHRONIC RESPIRATORY FAILURE WITH HYPERCAPNIA Status: Acute Plan: weaned down to cpap, will continue to wean down as tolerated Took steroids overnight (2) Asthma Code(s): J45.909 - UNSPECIFIED ASTHMA, UNCOMPLICATED Status: Acute (3) Anxiety Code(s): F41.9 - ANXIETY DISORDER, UNSPECIFIED Status: Chronic Plan: continue to titrate medications as appropriate (4) Morbid obesity Code(s): E66.01 - MORBID (SEVERE) OBESITY DUE TO EXCESS CALORIES Status: Chronic (5) GLORIA (obstructive sleep apnea) Code(s): G47.33 - OBSTRUCTIVE SLEEP APNEA (ADULT) (PEDIATRIC) Status: Chronic <Chinedu Maxwell - Last Filed: 10/05/17 11:38> Attending Addendum - Attending Addendum I personally evaluated the patient and discussed the management with Dr. Maxwell I agree with the History, Examination, Assessment and Plan documented above with any addition or exceptions noted below. Acute on chronic respiratory failure secondary to COPD and GLORIA/OHS- continue CPAP, steroid, nebs, abx. <Kira Gibson Lory - Last Filed: 10/05/17 13:15>
[2017-10-05] MEDS: Dexamethasone 4 mg/ml Vial SLOW IVP SCH ×3 (12:13→23:46)
[2017-10-05] MEDS: Ondansetron ODT 4 MG TAB PO PRN (14:23)
[2017-10-05] MEDS: Ketorolac Tromethamine 30 MG/ML VIAL IVP PRN ×2 (16:52→23:39)
[2017-10-05] MEDS: Furosemide 20 MG/2 ML VIAL IVP SCH (21:37)
[2017-10-05] MEDS: diphenhydrAMINE 25 MG CAP PO PRN (21:38)
[2017-10-05] MEDS: Azithromycin 500 MG in Sodium Chloride 0.9% 250 ML 250 ML IVPB SCH (21:53)
[2017-10-06] MEDS: Lorazepam 2 MG/ML VIAL SLOW IVP PRN ×3 (00:48→17:17)
[2017-10-06] MEDS: Dexamethasone 4 mg/ml Vial SLOW IVP SCH ×3 (05:45→17:17)
[2017-10-06 06:18] LABS: #Monocytes 0.4 thou/uL (0.11-0.59); #Neutrophils 10.2 thou/uL (1.40-6.50); %Basophils 0.1 % (0.0-1.0); %Eosinophils 0.1 % (0.0-10.0); %Lymphocytes 8.7 % (21.0-51.0); %Monocytes 3.5 % (0.0-10.0); %Neutrophils 87.5 % (42.0-75.0); Hemoglobin 10.9 g/dL (12.0-16.0); Mean Corpuscular HGB CONC 29.7 g/dL (32.0-36.0); Mean Corpuscular Hemoglobin 23.3 pg (27.0-31.0); Mean Corpuscular Volume 78.5 fl (81.0-99.0); Mean Platelet Volume 9.2 fL (7.4-10.4); Platelet Count 285 thou/uL (130-400); RBC Distribution Width 18.3 % (11.5-14.5); Red Blood Cell (RBC) Count 4.69 mill/uL (4.20-5.40); White Blood Cell (WBC) Count 11.6 thou/uL (4.8-10.8)
[2017-10-06 06:31] LABS: BUN (Urea Nitrogen) 24 mg/dL (9.8-20.1); Calc. Creatinine Clearance 122 mL/min (70-130); Calcium 9.3 mg/dL (7.8-10.44); Estimated GFR-MDRD 63; Glucose 230 mg/dL (70-105)
--- NOTE | 2017-10-06 06:32 | PDOC.FM ---
- Subjective Subjective: Patient continues to be anxious and reports difficulty catching her breath. Denies N/V. Patient yesterday asked to be transferred down to [place] so she was placed on the transfer board. Still waiting to hear the results. - Objective MAR Reviewed: Yes Vital Signs & Weight: Vital Signs (12 hours) Temp Pulse Resp BP Pulse Ox 10/06/17 04:25 98.6 F 97 20 153/83 H 96 10/06/17 00:01 99.0 F 114 H 19 136/71 98 10/05/17 22:13 114 H 21 H 97 10/05/17 19:25 99.1 F 119 H 22 H 147/79 H 90 L 10/05/17 18:35 115 H 10/05/17 18:33 115 H 25 H 94 L Weight Weight 139.054 kg I&O: 10/04/17 10/05/17 10/06/17 06:59 06:59 06:59 Intake Total 600 1240 1080 Balance 600 1240 1080 Result Diagrams: 10/06/17 05:40 10/06/17 05:40 <Chinedu Maxwell M - Last Filed: 10/06/17 11:35> - Objective Vital Signs & Weight: Vital Signs (12 hours) Temp Pulse Resp BP Pulse Ox 10/06/17 14:05 112 H 10/06/17 11:58 97.9 F 106 H 16 141/66 H 100 10/06/17 10:40 107 H 25 H 100 10/06/17 08:00 97.4 F L 98 16 96 10/06/17 07:57 97.4 F L 98 16 122/87 96 10/06/17 07:31 91 10/06/17 07:28 92 22 H 97 10/06/17 04:25 98.6 F 97 20 153/83 H 96 Weight Weight 139.054 kg I&O: 10/05/17 10/06/17 10/07/17 06:59 06:59 06:59 Intake Total 1240 2090 Balance 1240 2090 Result Diagrams: 10/06/17 05:40 10/06/17 05:40 <Kira Gibson Lory - Last Filed: 10/06/17 16:04> Phys Exam - Physical Examination anxious, morbidly obese HEENT: PERRLA, moist MMs Neck: full ROM trach collar in place Respiratory: no wheezing, clear to auscultation bilateral Cardiovascular: RRR, no significant murmur Gastrointestinal: soft, non-tender Musculoskeletal: pulses present Neurological: non-focal, moves all 4 limbs Deviation from normal: moderately anxious Skin: no rash <Chinedu Maxwell - Last Filed: 10/06/17 11:35> Dx/Plan (1) Acute on chronic respiratory failure with hypoxia and hypercapnia Code(s): J96.21 - ACUTE AND CHRONIC RESPIRATORY FAILURE WITH HYPOXIA; J96.22 - ACUTE AND CHRONIC RESPIRATORY FAILURE WITH HYPERCAPNIA Status: Acute Plan: Breathing spontaneously over the vent O2 saturation stable at this time Dr. Ferrara switched patient to decadron and patient seems to have tolerated it better (2) Asthma Code(s): J45.909 - UNSPECIFIED ASTHMA, UNCOMPLICATED Status: Acute (3) Anxiety Code(s): F41.9 - ANXIETY DISORDER, UNSPECIFIED Status: Chronic Plan: continue to titrate medications as appropriate (4) Morbid obesity Code(s): E66.01 - MORBID (SEVERE) OBESITY DUE TO EXCESS CALORIES Status: Chronic (5) GLORIA (obstructive sleep apnea) Code(s): G47.33 - OBSTRUCTIVE SLEEP APNEA (ADULT) (PEDIATRIC) Status: Chronic <Chinedu Maxwell - Last Filed: 10/06/17 11:35> Attending Addendum - Attending Addendum I personally evaluated the patient and discussed the management with Dr. Maxwell I agree with the History, Examination, Assessment and Plan documented above with any addition or exceptions noted below. Acute on chronic respiratory failure- on bipap through her trach. s/p bronch with dr. ferrara this morning. COPD exac- on steroids, nebs, azithromycin. Anxiety- continue ativan. Patient is requesting transfer to [place] with her physicians. Will attempt to facilitate that <Kira Gibson - Last Filed: 10/06/17 16:04>
[2017-10-06 06:40] LABS: Anion Gap 14 mmol/L (10-20); Carbon Dioxide 36 mmol/L (22-29); Chloride 94 mmol/L (98-107); Potassium 4.2 mmol/L (3.5-5.1); Sodium 140 mmol/L (136-145)
[2017-10-06] MEDS: Mometasone/Formoterol 120 PUFF INHALER INH SCH ×4 (07:30→19:01)
[2017-10-06] MEDS: Enoxaparin Sodium 40 MG/0.4 ML SYRINGE SC SCH (08:17)
[2017-10-06] MEDS: Docusate 100 MG CAP PO SCH ×2 (08:18→21:13)
[2017-10-06] MEDS: Furosemide 20 MG/2 ML VIAL IVP SCH ×2 (08:18→21:16)
[2017-10-06] MEDS: Cyanocobalamin (Vitamin B-12) 1,000 MCG TAB PO SCH (08:18)
[2017-10-06] MEDS: Potassium Chloride 20 MEQ TAB PO SCH (08:18)
--- NOTE | 2017-10-06 09:43 | PDOC.BRONC ---
Bronchoscopy Procedure Note - Procedure Date: 10/06/17 Time: 09:42 - PreProcedure Diagnosis: mucus plugging - PostProcedure Diagnosis: mucus plugging - Anesthesia Anesthesia: Other Amount of anesthesia used (ml): 1 (ativan 1mg iv) - Description Patient tolerated procedure: no complications Procedure in Details: Trach was in good position. Pt had extensive mucus plugging in both lower lobes. This was lavaged with NS and aspirated to completion.
--- NOTE | 2017-10-06 10:19 | PRG ---
DATE OF SERVICE: 10/06/2017 SUBJECTIVE: She is complaining that her tracheostomy was in an abnormal position. She is complainin g that she is not being suctioned enough. OBJECTIVE: VITAL SIGNS: Temperature is 97.4, pulse 90, respirations 16, O2 96%, and blood pressure 122/87. HEENT: Unremarkable. NECK: Trach in good position. LUNGS: Coarse rhonchi. CARDIOVASCULAR: S1 and S2 regular. ABDOMEN: Soft, obese, nontender. EXTREMITIES: Edematous. LABORATORY DATA: White blood cell count 11.6, hematocrit 36.8, platelet count 285. Sodium 140, pota ssium 4.2, BUN 24, creatinine 1.10, glucose 213. ASSESSMENT: 1. Chronic respiratory failure. 2. Mucus plugging. 3. Obesity-hypoventilation syndrome. 4. Probable current diastolic heart failure. PLAN: 1. Bronchoscopy was performed. Her trach was in good position. She had copious mucus secretions, w hich were aspirated and removed. 2. Wean ventilator as tolerated.
[2017-10-06] MEDS: Ketorolac Tromethamine 30 MG/ML VIAL IVP PRN (17:17)
[2017-10-07] MEDS: Dexamethasone 4 mg/ml Vial SLOW IVP SCH ×5 (00:06→23:50)
[2017-10-07] MEDS: diphenhydrAMINE 25 MG CAP PO PRN ×2 (00:14→18:15)
--- NOTE | 2017-10-07 00:46 | EKG ---
Test Reason : STAT Blood Pressure : / mmHG Vent. Rate : 109 BPM Atrial Rate : 109 BPM P-R Int : 114 ms QRS Dur : 076 ms QT Int : 338 ms P-R-T Axes : 050 011 064 degrees QTc Int : 455 ms Sinus tachycardia Otherwise normal ECG When compared with ECG of 04-OCT-2017 11:40, ST no longer elevated in Anterior leads Confirmed by MULU ARECHIGA, DR. Winslow ([id number]) on 10/07/2017 12:45:45 AM Referred By: Confirmed By:DR. Goldy HARDWICK MD
[2017-10-07 05:43] LABS: BUN (Urea Nitrogen) 28 mg/dL (9.8-20.1); Calc. Creatinine Clearance 125 mL/min (70-130); Calcium 9.5 mg/dL (7.8-10.44); Estimated GFR-MDRD 65; Glucose 168 mg/dL (70-105)
[2017-10-07 05:47] LABS: #Basophils 0.1 thou/uL (0.0-0.2); #Lymphocytes 1.2 thou/uL (1.20-3.40); #Monocytes 0.3 thou/uL (0.11-0.59); #Neutrophils 10.4 thou/uL (1.40-6.50); %Basophils 0.9 % (0.0-1.0); %Eosinophils 0.1 % (0.0-10.0); %Lymphocytes 9.8 % (21.0-51.0); %Monocytes 2.5 % (0.0-10.0); %Neutrophils 86.8 % (42.0-75.0); Hemoglobin 11.5 g/dL (12.0-16.0); Mean Corpuscular HGB CONC 29.9 g/dL (32.0-36.0); Mean Corpuscular Hemoglobin 23.8 pg (27.0-31.0); Mean Corpuscular Volume 79.6 fl (81.0-99.0); Mean Platelet Volume 9.2 fL (7.4-10.4); Platelet Count 322 thou/uL (130-400); RBC Distribution Width 18.4 % (11.5-14.5); Red Blood Cell (RBC) Count 4.82 mill/uL (4.20-5.40)
[2017-10-07 05:53] LABS: Anion Gap 17 mmol/L (10-20); Carbon Dioxide 39 mmol/L (22-29); Chloride 88 mmol/L (98-107); Potassium 3.9 mmol/L (3.5-5.1); Sodium 140 mmol/L (136-145)
[2017-10-07] MEDS: Potassium Chloride 20 MEQ TAB PO SCH (08:34)
[2017-10-07] MEDS: Docusate 100 MG CAP PO SCH ×2 (08:34→21:18)
[2017-10-07] MEDS: Furosemide 20 MG/2 ML VIAL IVP SCH ×2 (08:39→21:17)
[2017-10-07] MEDS: Enoxaparin Sodium 40 MG/0.4 ML SYRINGE SC SCH (08:40)
[2017-10-07] MEDS: Cyanocobalamin (Vitamin B-12) 1,000 MCG TAB PO SCH (08:40)
--- NOTE | 2017-10-07 09:03 | PRG ---
DATE OF SERVICE: 10/07/2017 SUBJECTIVE: The patient is doing reasonably well this morning and had no events overnight. OBJECTIVE: VITAL SIGNS: Temperature 98.4, pulse 99, respirations 18, O2 saturation 100%, and blood pressure 120 /62. GENERAL: She is a morbidly obese female on mechanical ventilation. HEENT: Unremarkable. NECK: Trach in good position. LUNGS: Fairly clear. CARDIOVASCULAR: S1 and S2, regular. ABDOMEN: Soft, obese, nontender. EXTREMITIES: No edema. LABORATORY DATA: White blood cell count 12, hematocrit 38.4, and platelet count 322. Sodium 140, po tassium 3.9, chloride 80, CO2 of 39, BUN 20, creatinine 1.1, and glucose 168. ASSESSMENT: 1. Chronic respiratory failure, requiring mechanical ventilation. 2. Obstructive sleep apnea/obesity hypoventilation syndrome. 3. Mucus plugging. 4. Probable diastolic heart failure. PLAN: 1. Trial off ventilator today and see how she does. 2. LTAC placement has been requested, but I am not sure she will qualify from the insurance standpoi nt. 3. Would cut back on laboratory draws.
[2017-10-07] MEDS: Mometasone/Formoterol 120 PUFF INHALER INH SCH ×2 (10:51→19:20)
--- NOTE | 2017-10-07 10:59 | PDOC.FM ---
- Subjective Subjective: Patient doing well this morning, reports she got a little sleep overnight. Reports her breathing has been about the same as yesterday. - Objective MAR Reviewed: Yes Vital Signs & Weight: Vital Signs (12 hours) Temp Pulse Resp BP BP Pulse Ox 10/07/17 08:39 86 154/80 H 10/07/17 08:38 89 23 H 99 10/07/17 08:23 97.2 F L 89 20 100 10/07/17 08:22 97.2 F L 89 20 154/80 H 100 10/07/17 04:00 98.4 F 99 18 128/62 100 10/07/17 02:45 94 10/07/17 00:00 97.4 F L 111 H 18 128/59 L 100 10/06/17 23:16 94 147/81 H Weight Weight 138.482 kg I&O: 10/06/17 10/07/17 10/08/17 06:59 06:59 06:59 Intake Total 2090 280 240 Balance 2090 280 240 Result Diagrams: 10/07/17 05:00 10/07/17 05:00 <Chinedu Maxwell M - Last Filed: 10/07/17 10:58> - Objective Vital Signs & Weight: Vital Signs (12 hours) Temp Pulse Resp BP BP Pulse Ox 10/07/17 14:15 98 24 H 99 10/07/17 12:00 97.6 F 89 18 114/73 100 10/07/17 11:57 97 10/07/17 11:56 97 10/07/17 11:43 90 22 H 99 10/07/17 08:39 86 154/80 H 10/07/17 08:38 89 23 H 99 10/07/17 08:23 97.2 F L 89 20 100 10/07/17 08:22 97.2 F L 89 20 154/80 H 100 10/07/17 04:00 98.4 F 99 18 128/62 100 Weight Weight 138.482 kg I&O: 10/06/17 10/07/17 10/08/17 06:59 06:59 06:59 Intake Total 2090 280 485.0 Balance 2090 280 485.0 Result Diagrams: 10/07/17 05:00 10/07/17 05:00 <Kira Gibson Lory - Last Filed: 10/07/17 15:53> Phys Exam - Physical Examination Constitutional: NAD trach breathing tube in place Respiratory: no wheezing, clear to auscultation bilateral Cardiovascular: RRR, no significant murmur Gastrointestinal: soft, non-tender Musculoskeletal: pulses present Neurological: normal sensation, moves all 4 limbs Psychiatric: A&O x 3 Deviation from normal: anxiety improved <Chinedu Maxwell - Last Filed: 10/07/17 10:58> Dx/Plan (1) Acute on chronic respiratory failure with hypoxia and hypercapnia Code(s): J96.21 - ACUTE AND CHRONIC RESPIRATORY FAILURE WITH HYPOXIA; J96.22 - ACUTE AND CHRONIC RESPIRATORY FAILURE WITH HYPERCAPNIA Status: Acute Plan: Breathing spontaneously over the vent O2 saturation stable at this time Dr. Curran decreased decadron to 2mg Will try a trial off vent today Have requested LTAC for placement (2) Asthma Code(s): J45.909 - UNSPECIFIED ASTHMA, UNCOMPLICATED Status: Acute (3) Anxiety Code(s): F41.9 - ANXIETY DISORDER, UNSPECIFIED Status: Chronic Plan: improved overnight (4) Morbid obesity Code(s): E66.01 - MORBID (SEVERE) OBESITY DUE TO EXCESS CALORIES Status: Chronic (5) GLORIA (obstructive sleep apnea) Code(s): G47.33 - OBSTRUCTIVE SLEEP APNEA (ADULT) (PEDIATRIC) Status: Chronic <Chinedu Maxwell - Last Filed: 10/07/17 10:58> Attending Addendum - Attending Addendum I personally evaluated the patient and discussed the management with Dr. Maxwell I agree with the History, Examination, Assessment and Plan documented above with any addition or exceptions noted below. Acute on chronic respiratory failure with trach secondary to COPD and GLORIA/OHS- to trach collar per pulmonology Anxiety- continue ativan Deconditioning- PT. <Kira Gibson - Last Filed: 10/07/17 15:53>
--- NOTE | 2017-10-07 11:28 | PDOC.PULCC ---
CCU Progress Note: Subj/Obj - Objective Allergies/Adverse Reactions: Allergies Allergy/AdvReac Type Severity Reaction Status Date / Time influenza virus vaccine ts Allergy Severe Anxiety Verified 06/25/17 14:22 2013- [From Fluarix [id number] (PF)] nalbuphine Allergy Severe Anaphylaxis Verified 06/25/17 14:24 ciprofloxacin [From Cipro] Allergy Verified 08/31/17 03:01 corn Allergy Verified 06/25/17 14:24 levofloxacin Allergy Verified 08/17/17 16:51 montelukast [From Singulair] Allergy Hives Verified 08/17/17 16:51 peas Allergy Verified 06/25/17 14:24 Sulfa (Sulfonamide Allergy Short of Verified 06/25/17 14:25 Antibiotics) Breath iodine AdvReac Severe Anaphylaxis Verified 04/24/17 22:50 Latex, Natural Rubber AdvReac Severe Short of Verified 04/24/17 22:50 Breath shellfish derived AdvReac Severe Anaphylaxis Verified 06/25/17 14:23 Medications: Current Medications Albuterol Sulfate (Ventolin) 2.5 mg NEB Q2H PRN PRN Reason: SOB &/or Wheezing Last Admin: 10/04/17 04:16 Dose: 2.5 mg Albuterol/Ipratropium (Duoneb) 3 ml NEB [id number] [facility] Last Admin: 10/07/17 08:38 Dose: 3 ml Betamethasone Valerate (Valisone 0.1% Cream) 0 gm TOP BID PRN PRN Reason: Topical Irritations Cyanocobalamin (Vitamin B-12) 1,000 mcg PO DAILY [facility] Last Admin: 10/07/17 08:40 Dose: 1,000 mcg Dexamethasone (Decadron) 2 mg SLOW IVP Q6HR [facility] Diphenhydramine HCl (Benadryl) 25 mg PO Q4H PRN PRN Reason: Itching Last Admin: 10/07/17 00:14 Dose: 25 mg Docusate Sodium (Colace) 100 mg PO BID [facility] Last Admin: 10/07/17 08:34 Dose: Not Given Enoxaparin Sodium (Lovenox) 40 mg SC 0900 [facility] Last Admin: 10/07/17 08:40 Dose: 40 mg Furosemide (Lasix) 40 mg IVP BID [facility] Last Admin: 10/07/17 08:39 Dose: 40 mg Sodium Chloride (Normal Saline 0.9%) 1,000 mls @ 0 mls/hr IV .Q0M [facility] PRN Reason: KVO Labetalol HCl (Normodyne) 20 mg SLOW IVP Q4H PRN PRN Reason: SBP Greater Than 180 Last Admin: 10/03/17 04:22 Dose: 20 mg Loratadine (Claritin) 10 mg PO HSPRN PRN PRN Reason: Allergies Lorazepam (Ativan) 1 mg SLOW IVP Q8HR PRN PRN Reason: Anxiety/Agitation Last Admin: 10/06/17 17:17 Dose: 1 mg Mometasone Furoate/Formoterol Fumar (Dulera 200 Mcg/5 Mcg Inhaler) 2 puff INH BID-RT [facility] Last Admin: 10/07/17 10:51 Dose: Not Given Nystatin (Mycostatin Powder) 1 gm TOP BIDPRN PRN PRN Reason: Topical Irritations Ondansetron HCl (Zofran Odt) 4 mg PO Q6H PRN PRN Reason: Nausea/Vomiting Last Admin: 10/05/17 14:23 Dose: 4 mg Pantoprazole Sodium (Protonix) 40 mg PO DAILY [facility] Last Admin: 10/07/17 08:34 Dose: 40 mg Polyethylene Glycol (Miralax) 17 gm PO DAILYPRN PRN PRN Reason: Constipation Potassium Chloride (K-Dur) 20 meq PO DAILY [facility] Last Admin: 10/07/17 08:34 Dose: 20 meq Promethazine HCl (Phenergan) 25 mg PO Q6H PRN PRN Reason: Nausea Senna (Senokot) 2 tab PO HSPRN PRN PRN Reason: Constipation Sodium Chloride (Flush - Normal Saline) 10 ml IVF Q12HR [facility] Last Admin: 10/07/17 08:40 Dose: 10 ml Sodium Chloride (Flush - Normal Saline) 10 ml IVF PRN PRN PRN Reason: Saline Flush Last Admin: 10/07/17 06:26 Dose: 10 ml Vital Signs and I&O: Vital Signs Temp 97.2 F L 10/07/17 08:23 Pulse 86 10/07/17 08:39 Resp 23 H 10/07/17 08:38 BP 154/80 H 10/07/17 08:39 Pulse Ox 99 10/07/17 08:38 Intake & Output 10/06/17 10/07/17 10/07/17 18:59 06:59 18:59 Intake Total 280 240 Balance 280 240 Weight 305 lb 4.8 oz Intake: Oral 280 240 Other: Voiding Method Incontinent Incontinent Diaper # Urine Diapers 4 4 Vent Settin10/04/17 08:40 Communication Order-Resp (RT) SEEPHYS Vent Adult Resp: Vent Adult Start: 10/04/17 05:46 Freq: CONTINUOUS Status: Active Protocol: Activity Type Activity Date Activity User E-Sign Co-Sign Detail Recorded Client Recorded Date Recorded By Document 10/07/17 08:39 [facility] [id number] 10/07/17 08:41 RJR 10/07/17 08:39 RT: Ventilator Mode CPAP/Spont Mandatory Breath Type Pressure RR-Spontaneous 22 TV- Spontaneous 336 FIO2 24 PEEP (cm H2O) 5 Pressure Support 10 Peak Flow Rate (L/min) 65 Breath Trigger Flow Trigger Setting 2 VE (L/min) 6.4 Heater Temp (degrees C) 7 HR (60-100) 86 BP (90/60-140/90) 154/80 SPO2 99 Breath Sounds Wheezes Rhonchi Breath Sounds Comment mild Respiratory Treatment Given Yes High Inspiratory Pressure Alarm (cm/H2O) 50 High Respiratory Rate Alarm (bpm) 50 High Minute Volume Alarm (L/min) 25 Low Minute Volume Alarm (L/min) 3 Apnea Time Alarm (seconds) 20 Apnea Rate Alarm (bpm) 10 Airway Tracheostomy Tube Type Bivona Tube Size (mm) 8.0 HPLC CHEMIST Comments case filler fluid filled cuff HOB Angle (degrees) 45 Ambu Bag/ Mask at Bedside Yes Plugged in to Emergency Outlet Yes CCU Progress Note: Data - Labs Result Diagrams: 10/07/17 05:00 10/07/17 05:00 Lab results: Laboratory Results 10/05/17 10/06/17 10/06/17 21:38 05:40 05:40 WBC 11.6 H RBC 4.69 Hgb 10.9 L Hct 36.8 MCV 78.5 L MCH 23.3 L MCHC 29.7 L RDW 18.3 H Plt Count 285 MPV 9.2 Neutrophils % 87.5 H Neutrophils % (Manual) Not Reportable Lymphocytes % 8.7 L Monocytes % 3.5 Eosinophils % 0.1 Basophils % 0.1 Neutrophils # 10.2 H Lymphocytes # 1.0 L Monocytes # 0.4 Eosinophils # 0.0 Basophils # 0.0 Sodium 140 Potassium 4.2 Chloride 94 L Carbon Dioxide 36 H Anion Gap 14 BUN 24 H Creatinine 1.08 Estimated GFR (MDRD) 63 Glucose 230 H POC Glucose 168 H Calcium 9.3 10/06/17 10/06/17 10/07/17 11:32 17:19 05:00 WBC RBC Hgb Hct MCV MCH MCHC RDW Plt Count MPV Neutrophils % Neutrophils % (Manual) Lymphocytes % Monocytes % Eosinophils % Basophils % Neutrophils # Lymphocytes # Monocytes # Eosinophils # Basophils # Sodium 140 Potassium 3.9 Chloride 88 L Carbon Dioxide 39 H Anion Gap 17 BUN 28 H Creatinine 1.05 Estimated GFR (MDRD) 65 Glucose 168 H POC Glucose 198 H 172 H Calcium 9.5 10/07/17 05:00 WBC 12.0 H RBC 4.82 Hgb 11.5 L Hct 38.4 MCV 79.6 L MCH 23.8 L MCHC 29.9 L RDW 18.4 H Plt Count 322 MPV 9.2 Neutrophils % 86.8 H Neutrophils % (Manual) Lymphocytes % 9.8 L Monocytes % 2.5 Eosinophils % 0.1 Basophils % 0.9 Neutrophils # 10.4 H Lymphocytes # 1.2 Monocytes # 0.3 Eosinophils # 0.0 Basophils # 0.1 Sodium Potassium Chloride Carbon Dioxide Anion Gap BUN Creatinine Estimated GFR (MDRD) Glucose POC Glucose Calcium - ABG Interpretation ABG Results: ABG pH 7.32 (7.35-7.45) L 10/02/17 01:39 ABG pCO2 86.5 mmHg (35.0-45.0) H* 10/02/17 01:39 ABG O2 Sat Calc/Naveen 84.6 % (94.0-100.0) L* 10/02/17 01:39 ABG Base Excess 14.7 mEq/L (0 (+/-) 2.5) H 10/02/17 01:39 CCU Progress Note: A/P - Problems (1) Asthma Current Visit: Yes Status: Acute Code(s): J45.909 - UNSPECIFIED ASTHMA, UNCOMPLICATED (2) Acute and chronic respiratory failure Current Visit: No Status: Acute Code(s): J96.20 - ACUTE AND CHR RESP FAILURE , UNSP W HYPOXIA OR HYPERCAPNIA Qualifiers: Respiratory failure complication: hypoxia and hypercapnia Qualified Code(s) : J96.21 - Acute and chronic respiratory failure with hypoxia; J96.22 - Acute and chronic respiratory failure with hypercapnia; J96.22 - Acute and chronic respiratory failure with hypercapnia; J96.22 - Acute and chronic respiratory failure with hypercapnia
[2017-10-07] MEDS: Lorazepam 2 MG/ML VIAL SLOW IVP PRN ×2 (11:39→23:50)
[2017-10-07] MEDS: Acetaminophen 325 MG TAB PO PRN (16:23)
[2017-10-07] MEDS: guaiFENesin ER 600 MG TAB PO SCH (21:17)
[2017-10-08] MEDS: Dexamethasone 4 mg/ml Vial SLOW IVP SCH ×4 (06:21→23:26)
[2017-10-08] MEDS: Furosemide 20 MG/2 ML VIAL IVP SCH ×2 (08:12→20:47)
[2017-10-08] MEDS: Enoxaparin Sodium 40 MG/0.4 ML SYRINGE SC SCH (08:13)
[2017-10-08] MEDS: Cyanocobalamin (Vitamin B-12) 1,000 MCG TAB PO SCH (08:13)
[2017-10-08] MEDS: guaiFENesin ER 600 MG TAB PO SCH ×2 (08:13→20:47)
[2017-10-08] MEDS: Potassium Chloride 20 MEQ TAB PO SCH (08:13)
[2017-10-08] MEDS: Docusate 100 MG CAP PO SCH ×2 (08:13→20:46)
[2017-10-08] MEDS: Lorazepam 2 MG/ML VIAL SLOW IVP PRN ×2 (08:14→19:05)
[2017-10-08] MEDS: Mometasone/Formoterol 120 PUFF INHALER INH SCH ×2 (08:24→19:03)
[2017-10-08] MEDS ORDERED: Ibuprofen 600 MG TAB PO PRN (08:52)
--- NOTE | 2017-10-08 08:55 | PDOC.PULPN ---
Progress Note: Subj/Obj - Subjective Date: 10/08/17 Time: 08:53 Narrative: c/o pain around trach - ROS Cardiovascular: chest pain Respiratory: congestion - Objective Allergies/Adverse Reactions: Allergies Allergy/AdvReac Type Severity Reaction Status Date / Time influenza virus vaccine ts Allergy Severe Anxiety Verified 06/25/17 14:22 2013- [From Fluarix [id number] (PF)] nalbuphine Allergy Severe Anaphylaxis Verified 06/25/17 14:24 ciprofloxacin [From Cipro] Allergy Verified 08/31/17 03:01 corn Allergy Verified 06/25/17 14:24 levofloxacin Allergy Verified 08/17/17 16:51 montelukast [From Singulair] Allergy Hives Verified 08/17/17 16:51 peas Allergy Verified 06/25/17 14:24 Sulfa (Sulfonamide Allergy Short of Verified 06/25/17 14:25 Antibiotics) Breath iodine AdvReac Severe Anaphylaxis Verified 04/24/17 22:50 Latex, Natural Rubber AdvReac Severe Short of Verified 04/24/17 22:50 Breath shellfish derived AdvReac Severe Anaphylaxis Verified 06/25/17 14:23 Medications: Current Medications Acetaminophen (Tylenol) 650 mg PO Q6H PRN PRN Reason: Pain Last Admin: 10/07/17 16:23 Dose: 650 mg Albuterol Sulfate (Ventolin) 2.5 mg NEB Q2H PRN PRN Reason: SOB &/or Wheezing Last Admin: 10/04/17 04:16 Dose: 2.5 mg Albuterol/Ipratropium (Duoneb) 3 ml NEB [id number] [facility] Last Admin: 10/08/17 08:06 Dose: 3 ml Betamethasone Valerate (Valisone 0.1% Cream) 0 gm TOP BID PRN PRN Reason: Topical Irritations Cyanocobalamin (Vitamin B-12) 1,000 mcg PO DAILY [facility] Last Admin: 10/08/17 08:13 Dose: 1,000 mcg Dexamethasone (Decadron) 2 mg SLOW IVP Q6HR [facility] Last Admin: 10/08/17 06:21 Dose: 2 mg Diphenhydramine HCl (Benadryl) 25 mg PO Q4H PRN PRN Reason: Itching Last Admin: 10/07/17 18:15 Dose: 25 mg Docusate Sodium (Colace) 100 mg PO BID [facility] Last Admin: 10/08/17 08:13 Dose: 100 mg Enoxaparin Sodium (Lovenox) 40 mg SC 0900 [facility] Last Admin: 10/08/17 08:13 Dose: 40 mg Furosemide (Lasix) 40 mg IVP BID [facility] Last Admin: 10/08/17 08:12 Dose: 40 mg Guaifenesin (Mucinex) 600 mg PO Q12HR [facility] Last Admin: 10/08/17 08:13 Dose: 600 mg Sodium Chloride (Normal Saline 0.9%) 1,000 mls @ 0 mls/hr IV .Q0M [facility] PRN Reason: KVO Ibuprofen (Motrin) 600 mg PO Q6H PRN PRN Reason: Pain Labetalol HCl (Normodyne) 20 mg SLOW IVP Q4H PRN PRN Reason: SBP Greater Than 180 Last Admin: 10/03/17 04:22 Dose: 20 mg Loratadine (Claritin) 10 mg PO HSPRN PRN PRN Reason: Allergies Lorazepam (Ativan) 1 mg SLOW IVP Q8HR PRN PRN Reason: Anxiety/Agitation Last Admin: 10/08/17 08:14 Dose: 1 mg Mometasone Furoate/Formoterol Fumar (Dulera 200 Mcg/5 Mcg Inhaler) 2 puff INH BID-RT [facility] Last Admin: 10/08/17 08:24 Dose: 2 puff Nystatin (Mycostatin Powder) 1 gm TOP BIDPRN PRN PRN Reason: Topical Irritations Ondansetron HCl (Zofran Odt) 4 mg PO Q6H PRN PRN Reason: Nausea/Vomiting Last Admin: 10/05/17 14:23 Dose: 4 mg Pantoprazole Sodium (Protonix) 40 mg PO DAILY [facility] Last Admin: 10/08/17 08:13 Dose: 40 mg Polyethylene Glycol (Miralax) 17 gm PO DAILYPRN PRN PRN Reason: Constipation Potassium Chloride (K-Dur) 20 meq PO DAILY [facility] Last Admin: 10/08/17 08:13 Dose: 20 meq Promethazine HCl (Phenergan) 25 mg PO Q6H PRN PRN Reason: Nausea Senna (Senokot) 2 tab PO HSPRN PRN PRN Reason: Constipation Sodium Chloride (Flush - Normal Saline) 10 ml IVF Q12HR [facility] Last Admin: 10/08/17 08:21 Dose: 10 ml Sodium Chloride (Flush - Normal Saline) 10 ml IVF PRN PRN PRN Reason: Saline Flush Last Admin: 10/08/17 06:21 Dose: 10 ml MAR Reviewed: Yes Vital Signs: Vital Signs Temp 98.5 F 10/08/17 04:00 Pulse 87 10/08/17 08:24 Resp 16 10/08/17 08:24 BP 145/80 H 10/08/17 04:00 Pulse Ox 100 10/08/17 08:44 Intake & Output 10/07/17 10/08/17 10/08/17 18:59 06:59 18:59 Intake Total 845.5 600 Balance 845.5 600 Weight 301 lb 5 oz Intake: Intake, IV Amount 5.5 Dexamethasone 2 mg SLOW 1.0 IVP Q6HR [facility] Rx#:[id number] Furosemide 40 mg IVP BID 4 [facility] Rx#:[id number] Lorazepam 1 mg SLOW IVP 0.5 Q8HR PRN Rx#:[id number] Oral 360 600 Oral Supplement 480 Other: Voiding Method Diaper Diaper # Urine Diapers 6 6 # Bowel Movements 1 Progress Note: Exam - Physical Exam Constitutional: NAD HEENT: PERRLA, sclera anicteric Neck: no JVD Deviation from normal: trach site ok Cardiovascular: RRR Respiratory: rhonchi Gastrointestinal: soft, non-tender Musculoskeletal: edema present Neurological: moves all 4 limbs Psychiatric: normal affect, A&O x 3 Skin: no rash Progress Note: Data - Labs Result Diagrams: 10/07/17 05:00 10/07/17 05:00 Lab results: Laboratory Results 10/06/17 10/06/17 10/07/17 11:32 17:19 05:00 WBC RBC Hgb Hct MCV MCH MCHC RDW Plt Count MPV Neutrophils % Lymphocytes % Monocytes % Eosinophils % Basophils % Neutrophils # Lymphocytes # Monocytes # Eosinophils # Basophils # Sodium 140 Potassium 3.9 Chloride 88 L Carbon Dioxide 39 H Anion Gap 17 BUN 28 H Creatinine 1.05 Estimated GFR (MDRD) 65 Glucose 168 H POC Glucose 198 H 172 H Calcium 9.5 10/07/17 05:00 WBC 12.0 H RBC 4.82 Hgb 11.5 L Hct 38.4 MCV 79.6 L MCH 23.8 L MCHC 29.9 L RDW 18.4 H Plt Count 322 MPV 9.2 Neutrophils % 86.8 H Lymphocytes % 9.8 L Monocytes % 2.5 Eosinophils % 0.1 Basophils % 0.9 Neutrophils # 10.4 H Lymphocytes # 1.2 Monocytes # 0.3 Eosinophils # 0.0 Basophils # 0.1 Sodium Potassium Chloride Carbon Dioxide Anion Gap BUN Creatinine Estimated GFR (MDRD) Glucose POC Glucose Calcium Progress Note: A/P - Problems (1) Asthma Current Visit: Yes Status: Acute Code(s): J45.909 - UNSPECIFIED ASTHMA, UNCOMPLICATED (2) Acute and chronic respiratory failure Current Visit: No Status: Acute Code(s): J96.20 - ACUTE AND CHR RESP FAILURE , UNSP W HYPOXIA OR HYPERCAPNIA Qualifiers: Respiratory failure complication: hypoxia and hypercapnia Qualified Code(s) : J96.21 - Acute and chronic respiratory failure with hypoxia; J96.22 - Acute and chronic respiratory failure with hypercapnia; J96.22 - Acute and chronic respiratory failure with hypercapnia; J96.22 - Acute and chronic respiratory failure with hypercapnia - Plan Plan: Add omnicef for tracheitis Now off the vent, but still wheezing Stay in IMCU for now
--- NOTE | 2017-10-08 09:19 | PDOC.FM ---
- Subjective Subjective: Patient off vent overnight. Less anxiety per nursing staff and patient reports less difficulty breathing. New concern is burning at trach site, says it feels similar to 2 years ago when she had infection. - Objective MAR Reviewed: Yes Vital Signs & Weight: Vital Signs (12 hours) Temp Pulse Resp BP Pulse Ox 10/08/17 08:44 100 10/08/17 08:24 87 16 10/08/17 08:06 87 16 10/08/17 04:00 98.5 F 88 16 145/80 H 100 10/08/17 00:00 98.5 F 98 16 163/67 H 100 10/07/17 22:19 98 20 100 Weight Weight 136.673 kg I&O: 10/07/17 10/08/17 10/09/17 06:59 06:59 06:59 Intake Total 280 1445.5 Balance 280 1445.5 Result Diagrams: 10/07/17 05:00 10/07/17 05:00 <Chinedu Maxwell - Last Filed: 10/08/17 10:52> - Objective Vital Signs & Weight: Vital Signs (12 hours) Temp Pulse Pulse Pulse Resp BP BP 10/08/17 19:15 97.9 F 100 20 10/08/17 18:39 96 18 10/08/17 15:55 98.8 F 93 20 10/08/17 15:17 92 16 10/08/17 12:00 89 20 10/08/17 11:35 89 16 10/08/17 09:59 109 H 106 H 179/103 H 150/78 H 10/08/17 08:44 BP Pulse Ox Pulse Ox Pulse Ox 10/08/17 19:15 110/65 98 10/08/17 18:39 94 L 10/08/17 15:55 153/81 H 93 L 10/08/17 15:17 10/08/17 12:00 100 10/08/17 11:35 10/08/17 09:59 100 100 10/08/17 08:44 100 Weight Weight 136.673 kg I&O: 10/07/17 10/08/17 10/09/17 06:59 06:59 06:59 Intake Total 280 1445.5 500 Balance 280 1445.5 500 Result Diagrams: 10/07/17 05:00 10/07/17 05:00 <Kira Gibson Lory - Last Filed: 10/08/17 20:43> Phys Exam - Physical Examination HEENT: PERRLA Neck: full ROM mild wheezing diffusely Cardiovascular: RRR Gastrointestinal: soft, non-tender Musculoskeletal: no edema, pulses present Deviation from normal: still anxious <Chinedu Maxwell - Last Filed: 10/08/17 10:52> Dx/Plan (1) Acute on chronic respiratory failure with hypoxia and hypercapnia Code(s): J96.21 - ACUTE AND CHRONIC RESPIRATORY FAILURE WITH HYPOXIA; J96.22 - ACUTE AND CHRONIC RESPIRATORY FAILURE WITH HYPERCAPNIA Status: Acute Plan: Off the vent since yesterday O2 saturation stable at this time Patient refused LTAC, says she will only go home when she leaves the hospital (2) Asthma Code(s): J45.909 - UNSPECIFIED ASTHMA, UNCOMPLICATED Status: Acute (3) Anxiety Code(s): F41.9 - ANXIETY DISORDER, UNSPECIFIED Status: Chronic Plan: stable, though she seems to have a constant baseline of anxiety (4) Morbid obesity Code(s): E66.01 - MORBID (SEVERE) OBESITY DUE TO EXCESS CALORIES Status: Chronic (5) GLORIA (obstructive sleep apnea) Code(s): G47.33 - OBSTRUCTIVE SLEEP APNEA (ADULT) (PEDIATRIC) Status: Chronic (6) Tracheitis Code(s): J04.10 - ACUTE TRACHEITIS WITHOUT OBSTRUCTION Status: Acute Plan: started on omnicef continue to monitor for infection, no signs at this time besides patient report <Chinedu Maxwell - Last Filed: 10/08/17 10:52> Attending Addendum - Attending Addendum I personally evaluated the patient and discussed the management with Dr. Maxwell I agree with the History, Examination, Assessment and Plan documented above with any addition or exceptions noted below. Acute on chronic respiratory failure secondary to COPD and GLORIA/OHS- on trach collar. Continue abx, steroids, nebs Hyperglycemia secondary to steroids- SSI. <Kira Gibson - Last Filed: 10/08/17 20:43>
[2017-10-08] MEDS: Cefdinir 300 MG CAP PO SCH (10:39)
[2017-10-08] MEDS ORDERED: Dextrose 50% Abboject 50 ML SYRINGE SLOW IVP PRN (11:15)
[2017-10-08] MEDS ORDERED: HumaLOG 300 UNITS/3 ML VIAL SC PRN (11:15)
[2017-10-08] MEDS ORDERED: Dextrose 5% in Water 1,000 ML IV PRN (11:15)
[2017-10-08] MEDS: diphenhydrAMINE 25 MG CAP PO PRN (23:28)
[2017-10-09] MEDS: Dexamethasone 4 mg/ml Vial SLOW IVP SCH ×4 (05:29→23:32)
--- NOTE | 2017-10-09 06:27 | PDOC.FM ---
- Subjective Subjective: Patient's only complaint is that she hasnt had improvement of the pain and irritation around the trachea. It has not worsened but it has not improved. She feels like her breathing is better than days ago but not yet at baseline. No events overnight. - Objective MAR Reviewed: Yes Vital Signs & Weight: Vital Signs (12 hours) Temp Pulse Resp BP Pulse Ox 10/09/17 04:00 98.0 F 84 16 143/63 H 97 10/09/17 02:53 84 16 10/09/17 00:00 98.0 F 85 18 145/79 H 97 10/08/17 22:47 85 16 10/08/17 20:00 97.9 F 100 20 98 10/08/17 19:15 97.9 F 100 20 110/65 98 10/08/17 18:39 96 18 94 L Weight Weight 136.531 kg I&O: 10/07/17 10/08/17 10/09/17 06:59 06:59 06:59 Intake Total 280 1445.5 1460 Balance 280 1445.5 1460 Result Diagrams: 10/07/17 05:00 10/07/17 05:00 EKG Reviewed by me: Yes Radiology Reviewed by me: Yes Phys Exam - Physical Examination Constitutional: NAD HEENT: PERRLA, moist MMs Trachea site is intact with some erythema around site Mild wheezing and moderative air movment. distant breath sounds overall Cardiovascular: RRR, no significant murmur, no rub Gastrointestinal: soft, non-tender, no distention, positive bowel sounds Musculoskeletal: no edema Neurological: non-focal, normal sensation, moves all 4 limbs Psychiatric: normal affect, A&O x 3 Skin: no rash Dx/Plan (1) Acute on chronic respiratory failure with hypoxia and hypercapnia Code(s): J96.21 - ACUTE AND CHRONIC RESPIRATORY FAILURE WITH HYPOXIA; J96.22 - ACUTE AND CHRONIC RESPIRATORY FAILURE WITH HYPERCAPNIA Status: Acute (2) Asthma Code(s): J45.909 - UNSPECIFIED ASTHMA, UNCOMPLICATED Status: Acute (3) Tracheitis Code(s): J04.10 - ACUTE TRACHEITIS WITHOUT OBSTRUCTION Status: Acute (4) Anxiety Code(s): F41.9 - ANXIETY DISORDER, UNSPECIFIED Status: Acute (5) Morbid obesity Code(s): E66.01 - MORBID (SEVERE) OBESITY DUE TO EXCESS CALORIES Status: Chronic (6) GLORIA (obstructive sleep apnea) Code(s): G47.33 - OBSTRUCTIVE SLEEP APNEA (ADULT) (PEDIATRIC) Status: Chronic - Plan Plan: #Acute on chronic hypoxic hypercapneic respiratory failure- Slowly improving with steroids and breathing treatment. 2/2 to COPD exacerbation and baseline GLORIA and pickwickian syndrome. Pulmonology is consulted and has been primarily managing her exacerbation. Appreciate further recs. #Tracheitis- Symptoms persist but I think we need to give the omnicef more time. Will continue #Anxiety- Will conitnue scheduled lorazepam. Will consider transitioning to klonopin at some point if patient continues to need benzodiazapines.
[2017-10-09] MEDS: Mometasone/Formoterol 120 PUFF INHALER INH SCH ×2 (07:45→19:31)
[2017-10-09] MEDS: Potassium Chloride 20 MEQ TAB PO SCH (08:20)
[2017-10-09] MEDS: Cyanocobalamin (Vitamin B-12) 1,000 MCG TAB PO SCH (08:20)
[2017-10-09] MEDS: Docusate 100 MG CAP PO SCH ×2 (08:20→20:07)
[2017-10-09] MEDS: Cefdinir 300 MG CAP PO SCH (08:20)
[2017-10-09] MEDS: guaiFENesin ER 600 MG TAB PO SCH ×2 (08:20→20:06)
[2017-10-09] MEDS: Furosemide 20 MG/2 ML VIAL IVP SCH ×2 (08:20→20:07)
[2017-10-09] MEDS: Enoxaparin Sodium 40 MG/0.4 ML SYRINGE SC SCH (08:21)
[2017-10-09] MEDS: Lorazepam 2 MG/ML VIAL SLOW IVP PRN ×2 (08:21→23:32)
[2017-10-09] MEDS: HumaLOG 300 UNITS/3 ML VIAL SC PRN ×2 (11:20→17:09)
--- NOTE | 2017-10-09 19:30 | ADD-PRG ---
ADDENDUM DATE OF SERVICE: 10/09/2017 Please see the note from Dr. Stearns which I concur. The patient was seen and evaluated, examined an d discussed with the resident by bedside. The patient really has not had any major changes overnight and things have been fairly stable. She is currently on Omnicef that was just started for tracheiti s, but it sounds like overall her breathing status is a little bit better and anxiety is little bit b mian controlled. Otherwise, chest is coarse and definitely has some mucus around the trach site, bu t nothing too excessive and extremities show no edema. PLAN: Continue the exact same medications and I am going to wait on pulmonary recommendations as far as long-term placement, etc.
[2017-10-09] MEDS: Acetaminophen 325 MG TAB PO PRN (20:06)
[2017-10-09] MEDS: diphenhydrAMINE 25 MG CAP PO PRN (20:07)
--- NOTE | 2017-10-09 21:14 | PRG ---
DATE OF SERVICE: 10/09/2017 SUBJECTIVE: Fanta Mayorga had no complaints today. PHYSICAL EXAMINATION: VITAL SIGNS: She is afebrile, heart rate is 93, respiratory rate is 17, oximetry is 96. Blood press ure 136/64. LUNGS: Clear and distant. HEART: Regular rhythm. ABDOMEN: Soft. LABORATORY DATA: There is no new lab other than blood glucoses. IMPRESSION: 1. Obesity hypoventilation with chronic respiratory failure, acute decompensation. 2. Chronic indwelling tracheostomy. She is still complaining of discomfort around her trach site, b ut other than that has no other complaints. She denies shortness of breath. She did not sleep with ventilatory support last night and says she feels fine today. She is awake and alert. Other problems include stable asthma. An antibiotic was added for a possible tracheal site infection. She was wheezing when I evaluated to day so that is an improvement. PLAN: We will continue the current care.
[2017-10-09] MEDS ORDERED: Sodium Chloride 0.9% 15 ML NEB ONE (23:24)
[2017-10-10] MEDS: Dexamethasone 4 mg/ml Vial SLOW IVP SCH ×3 (05:48→18:11)
[2017-10-10] MEDS: HumaLOG 300 UNITS/3 ML VIAL SC PRN ×2 (05:51→18:10)
[2017-10-10 07:42] LABS: #Basophils 0.1 thou/uL (0.0-0.2); #Monocytes 0.6 thou/uL (0.11-0.59); #Neutrophils 9.5 thou/uL (1.40-6.50); %Basophils 0.6 % (0.0-1.0); %Eosinophils 0.1 % (0.0-10.0); %Lymphocytes 9.1 % (21.0-51.0); %Monocytes 5.1 % (0.0-10.0); %Neutrophils 85.1 % (42.0-75.0); Hemoglobin 12.1 g/dL (12.0-16.0); Mean Corpuscular HGB CONC 29.4 g/dL (32.0-36.0); Mean Corpuscular Hemoglobin 23.6 pg (27.0-31.0); Mean Corpuscular Volume 80.2 fl (81.0-99.0); Mean Platelet Volume 9.1 fL (7.4-10.4); Platelet Count 320 thou/uL (130-400); RBC Distribution Width 17.5 % (11.5-14.5); Red Blood Cell (RBC) Count 5.15 mill/uL (4.20-5.40); White Blood Cell (WBC) Count 11.1 thou/uL (4.8-10.8)
[2017-10-10 07:48] LABS: BUN (Urea Nitrogen) 39 mg/dL (9.8-20.1); Calc. Creatinine Clearance 123 mL/min (70-130); Calcium 9.4 mg/dL (7.8-10.44); Estimated GFR-MDRD 65; Glucose 175 mg/dL (70-105)
[2017-10-10 07:57] LABS: Anion Gap 21 mmol/L (10-20); Carbon Dioxide 38 mmol/L (22-29); Chloride 82 mmol/L (98-107); Potassium 4.3 mmol/L (3.5-5.1); Sodium 137 mmol/L (136-145)
[2017-10-10] MEDS: Mometasone/Formoterol 120 PUFF INHALER INH SCH ×2 (08:14→18:59)
[2017-10-10] MEDS: guaiFENesin ER 600 MG TAB PO SCH ×2 (08:54→21:22)
[2017-10-10] MEDS: Potassium Chloride 20 MEQ TAB PO SCH (08:54)
[2017-10-10] MEDS: Cefdinir 300 MG CAP PO SCH (08:54)
[2017-10-10] MEDS: Cyanocobalamin (Vitamin B-12) 1,000 MCG TAB PO SCH (08:54)
[2017-10-10] MEDS: Enoxaparin Sodium 40 MG/0.4 ML SYRINGE SC SCH (08:55)
[2017-10-10] MEDS: Docusate 100 MG CAP PO SCH ×2 (08:55→21:18)
[2017-10-10] MEDS: Furosemide 20 MG/2 ML VIAL IVP SCH ×2 (08:55→21:19)
--- NOTE | 2017-10-10 13:23 | PDOC.FM ---
- Subjective Subjective: Patient says that her breathing continues to get better and that she is doing better except for her pain around the tracheostomy, which is stable. - Objective MAR Reviewed: Yes Vital Signs & Weight: Vital Signs (12 hours) Temp Pulse Resp BP Pulse Ox 10/10/17 08:12 92 20 99 10/10/17 08:00 96.7 F L 77 18 100 10/10/17 07:32 96.7 F L 77 18 144/61 H 100 10/10/17 04:00 98.3 F 93 18 104/60 98 10/10/17 02:52 96 Weight Weight 136.588 kg I&O: 10/09/17 10/10/17 10/11/17 06:59 06:59 06:59 Intake Total 1460 1580 240 Balance 1460 1580 240 Result Diagrams: 10/10/17 07:21 10/10/17 07:21 EKG Reviewed by me: Yes Radiology Reviewed by me: Yes Phys Exam - Physical Examination Constitutional: NAD Obese, no increased WOB HEENT: PERRLA no erythema seen today around tracheostomy Neck: no nodes Respiratory: no wheezing, no rales, no rhonchi, clear to auscultation bilateral Cardiovascular: RRR, no significant murmur, no rub Gastrointestinal: soft, non-tender, no distention, positive bowel sounds Musculoskeletal: pulses present Neurological: non-focal, normal sensation Psychiatric: normal affect, A&O x 3 Deviation from normal: mildly anxious Skin: no rash, normal turgor, cap refill <2 seconds Dx/Plan (1) Acute on chronic respiratory failure with hypoxia and hypercapnia Code(s): J96.21 - ACUTE AND CHRONIC RESPIRATORY FAILURE WITH HYPOXIA; J96.22 - ACUTE AND CHRONIC RESPIRATORY FAILURE WITH HYPERCAPNIA Status: Acute (2) Asthma Code(s): J45.909 - UNSPECIFIED ASTHMA, UNCOMPLICATED Status: Acute (3) Tracheitis Code(s): J04.10 - ACUTE TRACHEITIS WITHOUT OBSTRUCTION Status: Acute (4) Anxiety Code(s): F41.9 - ANXIETY DISORDER, UNSPECIFIED Status: Acute (5) Morbid obesity Code(s): E66.01 - MORBID (SEVERE) OBESITY DUE TO EXCESS CALORIES Status: Chronic (6) GLORIA (obstructive sleep apnea) Code(s): G47.33 - OBSTRUCTIVE SLEEP APNEA (ADULT) (PEDIATRIC) Status: Chronic - Plan Plan: #Acute on chronic hypoxic hypercapneic respiratory failure- Slowly improving with steroids and breathing treatment. 2/2 to COPD exacerbation and baseline GLORIA and pickwickian syndrome. Nearing time to be stable for DC home. We discussed shelter/ SNF and she adamantly opposed. #Tracheitis- Symptoms persist but I think we need to give the omnicef more time. Will continue #Anxiety- Will conitnue scheduled lorazepam. Will consider transitioning to klonopin at some point if patient continues to need benzodiazapines. Will follow pulmonolgy recommendations for timing of discharge.
--- NOTE | 2017-10-10 14:53 | ADD-PRG ---
ADDENDUM: 10/10/2017 Please see the note from Dr. Stearns for which I concur. The patient is fairly stable, still complaining of some trach pain and she is being treated for trach eitis with cefdinir, but otherwise is stable on current oxygen and is starting to ambulate a little b it more, get around bed more and really this point in time was waiting on pulmonary to clear her if t hey feel like she is ready to go home or not. Exam is significant for really no erythema around the trach site. Chest is actually fairly clear, it may be just occasional wheeze anteriorly, though we w ill see what Pulmonary says. As far as discharge plans, the patient was seen, evaluated, examined, d iscussed with the residents by bedside.
--- NOTE | 2017-10-10 22:49 | PRG ---
DATE OF SERVICE: 10/10/2017 SUBJECTIVE: Ms. Mayorga is doing well. She has no complaints. Nurses say she has no complaints, which is different from past admissions whe re she has been on her call button all the time. She has been very cooperative and pleasant. OBJECTIVE: VITAL SIGNS: Have been stable. Heart rates in the 80s, respiratory rates in the 20s, oximetries in the mid 90s, blood pressure 106/59. LUNGS: Unchanged. HEART: Unchanged. ABDOMEN: Unchanged. IMPRESSION: 1. Chronic respiratory failure. 2. Life-threatening obesity. 3. Tracheostomy. PLAN: Continue supportive care.
[2017-10-11] MEDS: Dexamethasone 4 mg/ml Vial SLOW IVP SCH ×4 (00:02→20:49)
[2017-10-11] MEDS: diphenhydrAMINE 25 MG CAP PO PRN (01:05)
[2017-10-11] MEDS: Furosemide 40 MG/4 ML VIAL IVP SCH ×2 (06:01→14:12)
[2017-10-11] MEDS: HumaLOG 300 UNITS/3 ML VIAL SC PRN (06:54)
--- NOTE | 2017-10-11 09:47 | PRG ---
DATE OF SERVICE: 10/11/2017 SUBJECTIVE: The patient is complaining of tracheostomy discomfort and wants to have her tracheostomy changed back to a Shiley XLT cuffless 6.0. OBJECTIVE: VITAL SIGNS: On exam, temperature is 97.4, pulse 89, respiration 20, O2 sat 100%, and blood pressure 126/75. HEENT: Unremarkable. NECK: No JVD. LUNGS: Clear, but distant. CARDIAC: S1 and S2 regular. ABDOMEN: Soft, obese, nontender, nondistended. EXTREMITIES: No edema. LABORATORY DATA: No labs were obtained today. ASSESSMENT: 1. Obstructive sleep apnea/obesity hypoventilation syndrome. 2. Chronic indwelling tracheostomy. PLAN: I switched out her trach to a Shiley XLT 6.0 cuffless without difficulty. I have reviewed her orders. She should be ready to go back to her house. She will need tracheostomy changed out in [facility] 3 months. I would wean her steroids slowly over 2 weeks.
[2017-10-11] MEDS: Cefdinir 300 MG CAP PO SCH (10:20)
[2017-10-11] MEDS: guaiFENesin ER 600 MG TAB PO SCH ×2 (10:20→20:48)
[2017-10-11] MEDS: Potassium Chloride 20 MEQ TAB PO SCH (10:20)
[2017-10-11] MEDS: Cyanocobalamin (Vitamin B-12) 1,000 MCG TAB PO SCH (10:21)
[2017-10-11] MEDS: Enoxaparin Sodium 40 MG/0.4 ML SYRINGE SC SCH (10:21)
[2017-10-11] MEDS: Docusate 100 MG CAP PO SCH ×2 (10:21→20:49)
--- NOTE | 2017-10-11 11:46 | PDOC.FM ---
- Subjective Subjective: Patient stable overnight. Continues to complain about discomfort around the trach site. Denies CP, N/V. - Objective MAR Reviewed: Yes Vital Signs & Weight: Vital Signs (12 hours) Temp Pulse Resp BP Pulse Ox 10/11/17 11:11 97.8 F 95 22 H 154/91 H 95 10/11/17 10:54 88 18 99 10/11/17 08:27 98 98 10/11/17 07:36 97.4 F L 89 20 100 10/11/17 07:00 97.4 F L 89 20 126/75 100 10/11/17 04:00 97.0 F L 90 18 147/73 H 100 10/11/17 03:06 96 10/11/17 00:00 98.8 F 97 18 135/64 98 Weight Weight 136.758 kg I&O: 10/10/17 10/11/17 10/12/17 06:59 06:59 06:59 Intake Total 1580 1534.5 240 Balance 1580 1534.5 240 Result Diagrams: 10/10/17 07:21 10/10/17 07:21 <Chinedu Maxwell - Last Filed: 10/11/17 11:45> - Objective Vital Signs & Weight: Vital Signs (12 hours) Temp Pulse Resp BP BP Pulse Ox Pulse Ox 10/11/17 21:26 101 H 18 100 10/11/17 20:10 98.6 F 98 20 142/72 H 95 10/11/17 18:42 102 H 18 96 10/11/17 16:07 106 H 20 99 10/11/17 15:00 97.6 F 93 19 156/76 H 100 10/11/17 13:01 148/84 H 92 L 10/11/17 11:11 97.8 F 95 22 H 154/91 H 95 10/11/17 10:54 88 18 99 Weight Weight 136.758 kg I&O: 10/10/17 10/11/17 10/12/17 06:59 06:59 06:59 Intake Total 1580 1534.5 1084 Balance 1580 1534.5 1084 Result Diagrams: 10/10/17 07:21 10/11/17 19:51 <Nuha Ruiz - Last Filed: 10/11/17 22:26> Phys Exam - Physical Examination Constitutional: NAD HEENT: PERRLA, moist MMs trach in place Cardiovascular: RRR, no significant murmur Gastrointestinal: soft, non-tender Musculoskeletal: no edema, pulses present Neurological: normal sensation, moves all 4 limbs Deviation from normal: anxiety same Deviation from normal: no sign of infection at trach site <Chinedu Maxwell - Last Filed: 10/11/17 11:45> Dx/Plan (1) Acute on chronic respiratory failure with hypoxia and hypercapnia Code(s): J96.21 - ACUTE AND CHRONIC RESPIRATORY FAILURE WITH HYPOXIA; J96.22 - ACUTE AND CHRONIC RESPIRATORY FAILURE WITH HYPERCAPNIA Status: Acute Plan: O2 saturation good over the weekend (2) Asthma Code(s): J45.909 - UNSPECIFIED ASTHMA, UNCOMPLICATED Status: Acute (3) Anxiety Code(s): F41.9 - ANXIETY DISORDER, UNSPECIFIED Status: Chronic Plan: stable, seems to have a constant baseline of anxiety (4) Morbid obesity Code(s): E66.01 - MORBID (SEVERE) OBESITY DUE TO EXCESS CALORIES Status: Chronic (5) GLORIA (obstructive sleep apnea) Code(s): G47.33 - OBSTRUCTIVE SLEEP APNEA (ADULT) (PEDIATRIC) Status: Chronic (6) Tracheitis Code(s): J04.10 - ACUTE TRACHEITIS WITHOUT OBSTRUCTION Status: Acute Plan: omnicef continue to monitor for infection, no signs at this time besides patient report <Chinedu Maxwell - Last Filed: 10/11/17 11:45> Attending Addendum - Attending Addendum I personally evaluated the patient and discussed the management with Dr. Maxwell. I agree with the History, Examination, Assessment and Plan documented above with any addition or exceptions noted below. The patient's trach was changed by Dr. Curran. She is working with therapy. Anticipate discharge in coming days. Pt desire to return home. Continue antibiotics. <Nuha Ruiz - Last Filed: 10/11/17 22:26>
[2017-10-11] MEDS: Ondansetron ODT 4 MG TAB PO PRN (13:13)
[2017-10-11] MEDS: Mometasone/Formoterol 120 PUFF INHALER INH SCH ×2 (16:30→18:43)
[2017-10-11 20:22] LABS: Bilirubin Negative (Negative); Blood, Urine Negative (Negative); Glucose, Urine (Dipstick) Negative (Negative); Leukocyte Trace (Negative); Nitrite Negative (Negative); Protein, Urine (Dipstick) Negative (Neg-Trace); Urobilinogen 0.2 mg/dL (0.2-1.0); pH, Urine 5.5 (5.0-9.0)
[2017-10-11 20:23] LABS: BUN (Urea Nitrogen) 38 mg/dL (9.8-20.1); Calc. Creatinine Clearance 120 mL/min (70-130); Calcium 9.4 mg/dL (7.8-10.44); Estimated GFR-MDRD 63; Glucose 131 mg/dL (70-105)
[2017-10-11 20:32] LABS: Anion Gap 23 mmol/L (10-20); Carbon Dioxide 33 mmol/L (22-29); Chloride 85 mmol/L (98-107); Potassium 4.4 mmol/L (3.5-5.1); Sodium 137 mmol/L (136-145)
[2017-10-11 20:37] LABS: Clarity CLEAR (Clear)
[2017-10-11 20:38] LABS: Bacteria/HPF 2+ HPF (None Seen); Hyaline Casts/LPF NONE SEEN LPF (0-3 Hyaline); RBC/HPF None Seen HPF (0-3); Renal Epithelial None Seen HPF (0-3); Squamous Epithelial 0-3 HPF (0-3); Transitional Epithelial 0-3 HPF (0-3); WBC/HPF 0-3 HPF (0-3)
[2017-10-12] MEDS: Furosemide 40 MG/4 ML VIAL IVP SCH ×2 (06:23→14:20)
[2017-10-12] MEDS: HumaLOG 300 UNITS/3 ML VIAL SC PRN (06:24)
[2017-10-12] MEDS: Mometasone/Formoterol 120 PUFF INHALER INH SCH ×2 (07:06→18:46)
[2017-10-12] MEDS: Cyanocobalamin (Vitamin B-12) 1,000 MCG TAB PO SCH (08:10)
[2017-10-12] MEDS: Cefdinir 300 MG CAP PO SCH (08:10)
[2017-10-12] MEDS: Dexamethasone 4 mg/ml Vial SLOW IVP SCH ×2 (08:11→20:59)
[2017-10-12] MEDS: Potassium Chloride 20 MEQ TAB PO SCH (08:11)
[2017-10-12] MEDS: Enoxaparin Sodium 40 MG/0.4 ML SYRINGE SC SCH (08:16)
[2017-10-12] MEDS: guaiFENesin ER 600 MG TAB PO SCH ×2 (08:16→20:58)
[2017-10-12] MEDS: Docusate 100 MG CAP PO SCH ×2 (08:24→20:58)
--- NOTE | 2017-10-12 08:43 | PRG ---
DATE OF SERVICE: 10/12/2017 She is feeling better. She feels up to going home. PHYSICAL EXAMINATION: VITAL SIGNS: Temperature 97.6, pulse 90, respirations 18, O2 sat 100%,blood pressure 120/69. HEENT: Unremarkable. NECK: No JVD. LUNGS: Clear without wheezing. Trach in good position. CARDIAC: S1 and S2 regular. ABDOMEN: Soft. EXTREMITIES: No edema. LABORATORY DATA: No new labs were done today. ASSESSMENT: 1. Asthma with exacerbation. 2. Status post tracheostomy placement. 3. Status post acute respiratory failure. PLAN: The patient can go home. She should complete a total of 2 [facility]. I would send her home on Decadron 2 mg twice a day for the next 5 days orally and t hen taper that over about 2 weeks. She should not need to be on anything else besides her routine [facility] medications which include the Symbicort and nebulization treatments. I have instructed her to fol low up with me in 3 months to get a tracheostomy change - typically will have to be done in the emerg ency room because she says she is too big to fit in the elevator that goes up to our office.
[2017-10-12] MEDS: Acetaminophen 325 MG TAB PO PRN (09:56)
--- NOTE | 2017-10-12 11:36 | PDOC.FM ---
- Subjective Subjective: Patient reports having mild anxiety overnight, but otherwise doing fine. Denies CP, SOB, N/V. - Objective MAR Reviewed: Yes Vital Signs & Weight: Vital Signs (12 hours) Temp Pulse Resp BP Pulse Ox 10/12/17 10:51 85 20 100 10/12/17 08:00 97.6 F 90 18 121/69 90 L 10/12/17 06:59 81 20 100 10/12/17 04:00 98.3 F 90 20 149/74 H 100 10/12/17 02:39 93 20 100 10/12/17 00:00 98.3 F 101 H 20 158/73 H 98 Weight Weight 135.987 kg I&O: 10/11/17 10/12/17 10/13/17 06:59 06:59 06:59 Intake Total 1534.5 2319 Balance 1534.5 2319 Result Diagrams: 10/10/17 07:21 10/11/17 19:51 <Chinedu Maxwell - Last Filed: 10/12/17 11:34> - Objective Vital Signs & Weight: Vital Signs (12 hours) Temp Pulse Resp BP Pulse Ox 10/13/17 08:00 97.8 F 91 18 157/75 H 99 10/13/17 04:00 98.5 F 80 18 167/73 H 98 10/13/17 03:07 99 16 95 10/13/17 00:00 98 18 100 Weight Weight 136.123 kg I&O: 10/12/17 10/13/17 10/14/17 06:59 06:59 06:59 Intake Total 2319 960 Output Total 1 Balance 2319 959 Result Diagrams: 10/10/17 07:21 10/11/17 19:51 <Nuha Ruiz - Last Filed: 10/13/17 11:19> Phys Exam - Physical Examination Constitutional: NAD Neck: full ROM trach in place midline Respiratory: no wheezing, clear to auscultation bilateral Cardiovascular: RRR, no significant murmur Gastrointestinal: soft, non-tender Musculoskeletal: no edema, pulses present Neurological: normal sensation, moves all 4 limbs Psychiatric: normal affect, A&O x 3 <Chinedu Maxwell - Last Filed: 10/12/17 11:34> Dx/Plan (1) Acute on chronic respiratory failure with hypoxia and hypercapnia Code(s): J96.21 - ACUTE AND CHRONIC RESPIRATORY FAILURE WITH HYPOXIA; J96.22 - ACUTE AND CHRONIC RESPIRATORY FAILURE WITH HYPERCAPNIA Status: Acute Plan: O2 saturation good overnight (2) Asthma Code(s): J45.909 - UNSPECIFIED ASTHMA, UNCOMPLICATED Status: Acute (3) Anxiety Code(s): F41.9 - ANXIETY DISORDER, UNSPECIFIED Status: Chronic Plan: stable, seems to have a constant baseline of anxiety (4) Morbid obesity Code(s): E66.01 - MORBID (SEVERE) OBESITY DUE TO EXCESS CALORIES Status: Chronic (5) GLORIA (obstructive sleep apnea) Code(s): G47.33 - OBSTRUCTIVE SLEEP APNEA (ADULT) (PEDIATRIC) Status: Chronic (6) Tracheitis Code(s): J04.10 - ACUTE TRACHEITIS WITHOUT OBSTRUCTION Status: Acute Plan: omnicef continue to monitor for infection, no signs at this time besides patient report - Plan Plan: plan to d/c <Chinedu Maxwell - Last Filed: 10/12/17 11:34> Attending Addendum - Attending Addendum I personally evaluated the patient and discussed the management with Dr. Maxwell on 10/12/17. I agree with the History, Examination, Assessment and Plan documented above with any addition or exceptions noted below. The patient has been cleared for discharge. Her breathing is at baseline. <Nuha Ruiz - Last Filed: 10/13/17 11:19>
[2017-10-12] MEDS: Lorazepam 1 MG TAB PO PRN ×2 (14:20→20:58)
[2017-10-13] MEDS: Lorazepam 1 MG TAB PO PRN ×2 (03:05→07:49)
[2017-10-13] MEDS: HumaLOG 300 UNITS/3 ML VIAL SC PRN (06:43)
[2017-10-13] MEDS: Dexamethasone 4 mg/ml Vial SLOW IVP SCH (07:48)
[2017-10-13] MEDS: Enoxaparin Sodium 40 MG/0.4 ML SYRINGE SC SCH (07:48)
[2017-10-13] MEDS: Potassium Chloride 20 MEQ TAB PO SCH (07:49)
[2017-10-13] MEDS: Cefdinir 300 MG CAP PO SCH (07:49)
[2017-10-13] MEDS: guaiFENesin ER 600 MG TAB PO SCH (07:49)
[2017-10-13] MEDS: Furosemide 40 MG/4 ML VIAL IVP SCH (07:49)
[2017-10-13] MEDS: Cyanocobalamin (Vitamin B-12) 1,000 MCG TAB PO SCH (07:49)
[2017-10-13] MEDS: Docusate 100 MG CAP PO SCH (07:50)
[2017-10-13 08:26] VITALS: BP 157/75; TEMP 97.8
--- NOTE | 2017-10-14 13:04 | DIS-2 ---
DATE OF ADMISSION: 10/02/2017 DATE OF DISCHARGE: 10/13/2017 RESIDENT: Chinedu Maxwell D.O. ADMITTING ATTENDING: Bruce Montesinos. DISCHARGE ATTENDING: Dr. Nuha Ruiz. CONSULTATIONS: Dr. Elizondo and Dr. Curran of Pulmonology. PROCEDURES: Bronchoscopy on 10/06/2017 showing trach in good position with extensive mucus plugging in both lobes, which was lavaged with normal saline and aspirated to completion. PRIMARY DIAGNOSES: 1. Acute on chronic hypoxic hypercapnic respiratory failure secondary to chronic obstructive pulmona ry disease exacerbation and obstructive sleep apnea. 2. Tracheitis. SECONDARY DIAGNOSES: 1. Anxiety. 2. Depression. 3. Gastroesophageal reflux disease. 4. Morbid obesity. DISCHARGE MEDICATIONS: 1. Omnicef 600 mg p.o. daily x3 more days. 2. Dexamethasone 2 mg p.o. twice daily for 5 days, then 1 mg twice daily for 5 days, 1 mg once daily x5 days. 3. Albuterol nebulizer 2.5 mg nebulized 3 times daily. 4. Zofran 8 mg p.o. q.8 hours p.r.n. nausea, vomiting. 5. Ipratropium bromide 2.5 mL inhaled q.4 hours p.r.n. shortness of breath or wheezing. 6. Diphenhydramine (Benadryl) 25 mg p.o. at bedtime. 7. Vitamin B12 1000 mcg p.o. daily. 8. Colace liquid 50 mg p.o. daily p.r.n. constipation. 9. Coenzyme Q10 100 mg p.o. daily. 10. Potassium chloride 20 mEq p.o. daily. 11. Albuterol sulfate HFA 2 puffs inhaled q.4 hours p.r.n. shortness of breath or anxiety. 12. Senna 5 mL p.o. twice daily as needed for constipation. 13. Phenergan 25 mg p.o. q.6 hours p.r.n. nausea. 14. Mansura 10/325 one tab p.o. q.4 hours p.r.n. pain. 15. Hydroxyzine 25 mg p.o. as needed for anxiety. 16. Zinc acetate 1 tab p.o. as needed for gout. 17. Cetirizine 10 mg p.o. at bedtime as needed for allergies. 18. Ambien 5 mg p.o. at bedtime. 19. Artificial Tears 1mL by eyes needed for dry eyes. 20. Loperamide 2 mg p.o. as needed for diarrhea, loose stools. 21. Nystatin 1 gram topical twice daily as needed for topical irritation. 21. Protonix 40 mg p.o. daily. 22. MiraLax 17 grams p.o. as needed. 23. Triamcinolone one application topical t.i.d. 24. Flavoxate 100 mg p.o. p.r.n. bladder spasms. 25. Sucralfate one tab q.i.d. as needed for GI cramping. 26. Lorazepam 0.5 mg p.o. t.i.d. as needed for anxiety. 27. Lasix 40 mg p.o. daily as needed for edema. 28. Symbicort 160/4.5 two puffs inhaled twice daily. 29. Guaifenesin 600 mg p.o. q.12 hours p.r.n. cough. 30. Buspirone 1 tab p.o. b.i.d. DISCONTINUED MEDICATIONS: None. HISTORY OF PRESENT ILLNESS AND HOSPITAL COURSE: The patient is a 61-year-old female who presented in itially to the hospital with difficulty breathing due to her history of morbid obesity and obstructiv e sleep apnea. The patient initially had an ABG of 7.29, pCO2 of 87, pO2 of 80.5, bicarbonate 41.5. She was admitted to [facility] for close evaluation and treated as COPD exacerbation including DuoNeb q.4 hours and started on Rocephin and azithromycin as well as IV methylprednisolone. The patient gradual ly improved on this regimen with the exception of methylprednisolone, which was switched to dexametha sone as the methylprednisolone caused extreme anxiety and agitation throughout hospital stay. The pa lauri continues to report discomfort and pain at her trach site, which improved when the patient was switched to a cuffless trach. The patient did require approximately 4-5 days of BiPAP on the vent. After patient was able to breathe on her own without requiring BiPAP, she began complaining of pain a round her trach site and reported that this is typically how she feels when before she gets an infect ion in that area. The patient was started on Omnicef throughout hospitalization. The patient's rolan l signs showed occasionally mild hypertension and infrequent tachycardia; however, the patient never had a fever over the last week or so of hospitalization. The patient refused placement as she states that she has all the necessary services at her house including 24-hour care and refused to go to [facility] or [facility]. On the day, the patient was discharged despite being informed that should be discharged later that day. She revealed that she would not be able to be discharged that day as none of her eduarda e services will be available until the following day. Case management told the patient that this had been a problem in the past and would be grounds for calling an Adult Protective Services, the follow ing day if she was not able to find adequate home care. Therefore, patient was discharged on the morning with no problems overnight. DISPOSITION: Stable, although guarded in the long-term. DISCHARGE INSTRUCTIONS: 1. Location: Home. 2. Diet: Heart healthy, consistent carbohydrates. 3. Activity: As tolerated. 4. Followup: Follow up with PCP, Dr. Ivey in the next week and follow up with Dr. Curran in [facility].
--- NOTE | 2017-10-28 19:00 | EKG ---
Test Reason : ROUTINE Blood Pressure : / mmHG Vent. Rate : 102 BPM Atrial Rate : 102 BPM P-R Int : 124 ms QRS Dur : 080 ms QT Int : 360 ms P-R-T Axes : 053 023 070 degrees QTc Int : 469 ms Sinus tachycardia Otherwise normal ECG When compared with ECG of 30-AUG-2017 11:13, No significant change was found Confirmed by DR. Romy SCOTT ([id number]) on 10/28/2017 7:00:19 PM Referred By: ROSA Confirmed By:DR. Romy SCOTT
== END 2017-10-13 08:37 | disposition home health service (06) | DRG 189 ==
LOC: ERS 16:50 → IMCU/EMU 10-02 00:29
PROVIDERS: ADMIT Emergency Medicine; ATTEND Emergency Medicine
PROC: 5A09557 Assistance with Respiratory Ventilation, Greater than 96 Consecutive Hours, Continuous Positive Airway Pressure (ICD-10-PCS; 2017-10-02)
PROC: 0BCB8ZZ Extirpation of Matter from Left Lower Lobe Bronchus, Via Natural or Artificial Opening Endoscopic (ICD-10-PCS; 2017-10-06)
PROC: 0BC68ZZ Extirpation of Matter from Right Lower Lobe Bronchus, Via Natural or Artificial Opening Endoscopic (ICD-10-PCS; 2017-10-06)
PROC: 0B21XFZ Change Tracheostomy Device in Trachea, External Approach (ICD-10-PCS; principal; 2017-10-11)
DX: J96.21 Acute and chronic respiratory failure with hypoxia (principal); T17.590A Other foreign object in bronchus causing asphyxiation, initial encounter; R65.10 Systemic inflammatory response syndrome (SIRS) of non-infectious origin without acute organ dysfunction; J44.1 Chronic obstructive pulmonary disease with (acute) exacerbation; Z93.0 Tracheostomy status; J45.901 Unspecified asthma with (acute) exacerbation; E66.2 Morbid (severe) obesity with alveolar hypoventilation; Z68.43 Body mass index [BMI] 50.0-59.9, adult; J98.11 Atelectasis; J96.22 Acute and chronic respiratory failure with hypercapnia; Z98.51 Tubal ligation status; Z90.49 Acquired absence of other specified parts of digestive tract; Z90.13 Acquired absence of bilateral breasts and nipples; R30.0 Dysuria; F41.9 Anxiety disorder, unspecified; F32.9 Major depressive disorder, single episode, unspecified; I10 Essential (primary) hypertension
CPT/HCPCS: 36415; 36416; 80048; 81001; 81003; 81015; 82553; 82805; 84484; 85025; 87086; 93005; 93010; 94003; 94640; 94660; 94760; A4218; C1713; G8978-GP-CN; G8979-GP-CL; G8987-GO-CM; G8988-GO-CM; G8989-GO-CM; G8996-GN-CJ; G8997-GN-CI; J0456; J1650; J1940; J7050; J7620

== ENCOUNTER 2018-02-06 20:54 | Emergency (ER) | payer MEDICARE, OTHER ==
[2018-02-06] MEDS ORDERED: Water For Inject, Bacteriostat 30 ML ONE (22:27)
[2018-02-06] MEDS ORDERED: methylPREDNISolone Sod Succ/PF 125 MG/2 ML VIAL ONE (22:27)
[2018-02-06 22:35] LABS: #Eosinphils 0.1 thou/uL (0.0-0.7); #Lymphocytes 1.8 thou/uL (1.20-3.40); #Monocytes 0.5 thou/uL (0.11-0.59); #Neutrophils 6.9 thou/uL (1.40-6.50); %Basophils 0.3 % (0.0-1.0); %Eosinophils 1.3 % (0.0-10.0); %Lymphocytes 19.4 % (21.0-51.0); %Monocytes 5.5 % (0.0-10.0); %Neutrophils 73.4 % (42.0-75.0); Hemoglobin 10.2 g/dL (12.0-16.0); Mean Corpuscular HGB CONC 30.9 g/dL (32.0-36.0); Mean Corpuscular Hemoglobin 26.9 pg (27.0-31.0); Mean Corpuscular Volume 87.2 fl (81.0-99.0); Mean Platelet Volume 7.2 fL (7.4-10.4); Platelet Count 286 thou/uL (130-400); RBC Distribution Width 14.9 % (11.5-14.5); White Blood Cell (WBC) Count 9.4 thou/uL (4.8-10.8)
--- NOTE | 2018-02-06 22:50 | RAD ---
AP CHEST: History: Chest pain. Date: 02-06-18 Comparison: 10-01-17 FINDINGS: AP chest demonstrates a tracheostomy tube in place. There is suboptimal inspiratory effort. Pulmonary vascular congestion seen. No evidence of effusions seen. There is a patchy density seen in both lung bases compatible with areas of atelectasis or patchy pneumonia. IMPRESSION: 1. Bibasilar areas of atelectasis or pneumonia. 2. Suboptimal inspiratory effort. POS: [facility]
[2018-02-06 22:56] LABS: BUN (Urea Nitrogen) 17 mg/dL (9.8-20.1); Calc. Creatinine Clearance 0 mL/min (70-130); Estimated GFR-MDRD 77
[2018-02-06 22:57] LABS: ALT (SGPT) 13 U/L (8-55); AST (SGOT) 12 U/L (5-34); Albumin 3.6 g/dL (3.4-4.8); Alkaline Phosphatase 65 U/L (40-150); Bilirubin, Total 0.2 mg/dL (0.2-1.2); Calcium 9.4 mg/dL (7.8-10.44); Globulin 3.8 g/dL (2.4-3.5); Glucose 96 mg/dL (80-115); Protein, Total 7.4 g/dL (6.0-8.3)
[2018-02-06 23:00] LABS: pH, Arterial 7.28 (7.35-7.45)
[2018-02-06 23:01] LABS: CKMB 0.9 ng/mL (0-6.6); Troponin I Less than 0.010 ng/mL (< 0.028)
[2018-02-06 23:01] LABS: CO2 Tension 101.1 mmHg (35.0-45.0)
[2018-02-06 23:02] LABS: Actual Bicarbonate (HCO3a) 45.9 mEq/L (22-26); Base Excess (BEa) 15.9 mEq/L (0 (+/-) 2.5); Hematocrit-ABG 34.6 % (36.0-47.0); Hemoglobin (Hb) 9.9 g/dL (12.0-16.0); O2 Tension (PaO2) 25.3 mmHg (80.0-100.0)
[2018-02-06 23:03] LABS: Analyzer IN Cardio ER; Calcium, Ionized 1.2 mmol/L (1.12-1.30); Puncture Site R WRIST
[2018-02-06 23:04] LABS: ALV-art Gradient 204.825 (0-20)
[2018-02-06 23:07] LABS: Anion Gap 13 mmol/L (10-20); Carbon Dioxide 38 mmol/L (23-31); Chloride 95 mmol/L (98-107); Potassium 4.2 mmol/L (3.5-5.1); Sodium 142 mmol/L (136-145)
[2018-02-06] MEDS ORDERED: predniSONE 20 MG TAB ONE (23:10)
== END 2018-02-06 23:39 | disposition left against medical advice (07) ==
LOC: ERS 20:54
DX: R06.02 Shortness of breath (principal); G89.18 Other acute postprocedural pain; E66.01 Morbid (severe) obesity due to excess calories; E11.9 Type 2 diabetes mellitus without complications; F41.9 Anxiety disorder, unspecified; J44.9 Chronic obstructive pulmonary disease, unspecified; Z79.82 Long term (current) use of aspirin; Z79.899 Other long term (current) drug therapy
CPT/HCPCS: 36415; 51701; 71045; 80053; 82553; 82805; 83735; 84484; 85025; 93005; 94640; J2930; J7506